=== PATIENT | male | born 1935 | race Caucasian/White ===

== ENCOUNTER 2025-04-11 18:26 | Inpatient (IN) | payer MEDICARE, OTHER, SELFPAY ==
[2025-04-11] VITALS (15 sets, daily range): BP systolic 129–159; BP diastolic 75–92; PULSE 67–98; RESP 11–27; TEMP 36.1–37.1; O2SAT 92–98; BMI 29.2
--- NOTE | 2025-04-11 18:41 | ECG_ITS ---
[facility] Test Date: 2025-04-11 Pat Name: Cisco Guthrie Department: Room: Gender: Male Servicer: : 1935 Requested By: Kathleen Flores Order Number: [id number] Anh MD: Inocencio Infante M.D. Measurements Intervals [place] Rate: 68 P: 24 NC: 196 QRS: -44 QRSD: 109 T: 63 QT: 394 QTc: 419 Interpretive Statements SINUS RHYTHM WITH OCCASIONAL VENTRICULAR PREMATURE COMPLEXES LEFT AXIS DEVIATION [QRS AXIS < -30] INCOMPLETE RIGHT BUNDLE BRANCH BLOCK [90+ ms QRS DURATION, TERMINAL R IN V1/V2, 40+ ms S IN I/aVL/V4/V5/V6] NONSPECIFIC T-WAVE ABNORMALITY INTERPRETATION BASED ON A DEFAULT AGE OF 40 YEARS No previous ECG available for comparison Electronically Signed On 04-12-2025 15:24:36 CDT by Inocencio Infante M.D. [email or web address]
--- NOTE | 2025-04-11 18:53 | ED_ITS ---
HPI - Chest Pain 2 General: Chief Complaint: Chest Pain Stated Complaint: chest pain Time Seen by Provider: 04/11/25 18:27 History of Present Illness: 89-year-old man with a history of yanez ry artery disease status post stents, diabetes and BPH who presents to the emergency room with chest pain. He says the pain started about an hour ago and felt just like when he had a heart attack in the past. He took a nitro and was about to take another and then the pain had gone away. He is been pain-free since. There was some concern for some EKG changes by EMS. No nausea or vomiting. No altered mental status. No focal motor deficits. No fevers. No chills. Related Data Allergies Allergy/AdvReac Type Severity Reaction Status Date / Time metformin Allergy ADR-Diarrhe Verified 04/11/25 18:42 a Review of Systems 2 Narrative: Constitutional symptoms: Negative except as documented in HPI. Skin symptoms: Negative except as documented in HPI. Eye symptoms: Negative except as documented in HPI. ENMT symptoms: Negative except as documented in HPI. Respiratory symptoms: Negative except as documented in HPI. Cardiovascular symptoms: Negative except as documented in HPI. Gastrointestinal symptoms: Negative except as documented in HPI. Genitourinary symptoms: Negative except as documented in HPI. Musculoskeletal symptoms: Negative except as documented in HPI. Neurologic symptoms: Negative except as documented in HPI. Psychiatric symptoms: Negative except as documented in HPI. Endocrine symptoms: Negative except as documented in HPI. Physical Exam 2 Narrative: EXAM NARRATIVE: General: Alert, no acute distress. Skin: Warm, dry. Head: Normocephalic, atraumatic. Neck: Supple, trachea midline. Eye: Extraocular movements are intact. Ears, nose, mouth and throat: mucosa moist. Cardiovascular: Regular, Normal peripheral perfusion. Respiratory: Lungs are clear to auscultation, respirations are non-labored, breath sounds are equal, Symmetrical chest wall expansion. Gastrointestinal: Soft, Nontender, Non distended Musculoskeletal: Normal ROM, no deformity. Neurological: Alert and oriented, No focal neurological deficit observed. Psychiatric: Cooperative, appropriate mood & affect. Course 2 Vital Signs: Vital signs: Vital Signs Temperature 98.7 F 04/11/25 18:32 Pulse Rate 67 04/11/25 18:32 Respiratory Rate 27 H 04/11/25 18:32 Blood Pressure 159/92 04/11/25 18:32 Pulse Oximetry 97 04/11/25 18:32 Oxygen Delivery Me thod Room Air 04/11/25 18:32 MDM - Chest Pain Medical Decision Making Medical decision making: Patient's reason for coming to the emergency room: Chest pain and coronary artery disease Social determinants: Patient is retired I reviewed the patient's medical record. Patient has no previous records from this institution. I reviewed the patient's current home meds Currently do not have a medication list. He does say he is on Plavix at home and Cardura. Alternate historians: None available Differential diagnosis for patient with chest pain includes but is not limited to and based on the above HPI, review of systems and physical exam: Pneumonia. unstable angina. angina. Acute coronary syndrome / MD. Pulmonary embolism. Costochondritis / musculoskeletal. Pleurisy. Pericarditis. Esophageal spasm. Pancreatis. Cholecystitis. Orders placed to evaluate differential diagnosis based on the above differential, HPI and physical exam EKG: Time 183. Rate 68. Normal sinus rhythm, nonspecific ST changes, PVCs, incomplete right bundle branch block, This was reviewed and interpreted by myself the ER physician. At 1834 Chest x-ray: No acute process. No infiltrate. No pneumothorax. Films were interpreted by myself the emergency room provider and pending final radiology review. Lab Review: Laboratory results were reviewed and interpreted by myself the emergency room physician. No leukocytosis. No anemia. No renal failure. First troponin is elevated at 24. proBNP is mildly elevated at 300 Clinical decision support: Heart score is 8. Recommends admission. Assessment of risk: - Level of risk - Was hospitalization considered? Reexamination: Patient remained stable. No increased work of breathing. No altered mental status. No focal motor deficits. Consultation: I spoke with Dr. Haskins who saw the patient upon arrival. He does not feel the patient is having a STEMI. The patient is no longer having any chest pain. He recommends typical cardiac workup. Consultation: I spoke with Dr. Patricio who is on-call for the hospitalist service who agrees to admission. Assessment and plan: Chest pain Coronary artery disease ?Patient has had Plavix today. Aspirin given here. Nitro at home. -I discussed the patient with the hospitalist on-call who is admitting the patient. - Discussed findings and plan with patient. Answered any questions. - All laboratory values were reviewed and interpreted personally by myself, the ER physician - All imaging was reviewed and interpreted personally by myself, the ER physician. - Evaluation and treatment of this problem were appropriate in the emergency setting Lab Data 04/11/25 18:45 04/11/25 18:45 Laboratory Results WBC 6.63 10^3/uL (3.29-11.43) 04/11/25 18:45 RBC 3.59 10^6/uL (3.85-5.65) L 04/11/25 18:45 Hgb 11.70 g/dL (11.27-16.99) 04/11/25 18:45 Hct 34.3 % (37-53) L 04/11/25 18:45 MCV 95.5 fl (82-101) 04/11/25 18:45 MCH 32.6 pg (27-33) 04/11/25 18:45 MCHC 34.1 g/dL (30-55) 04/11/25 18:45 RDW 13.4 % (12.1-15.1) 04/11/25 18:45 Plt Count 142 10^3/cmm (157-399) L 04/11/25 18:45 MPV 9.7 fL (7.4-10.4) 04/11/25 18:45 Neut % (Auto) 68.9 % 04/11/25 18:45 Lymph % (Auto) 21.1 % 04/11/25 18:45 Avery % (Auto) 6.8 % 04/11/25 18:45 Eos % (Auto) 2.4 % 04/11/25 18:45 Baso % (Auto) 0.3 % 04/11/25 18:45 Neut # (Auto) 4.57 10^3/uL (1.8-7.7) 04/11/25 18:45 Lymph # (Auto) 1.4 10^3/uL (0.8-4.8) 04/11/25 18:45 Avery # (Auto) 0.5 10^3/uL (0.2-0.9) 04/11/25 18:45 Eos # (Auto) 0.2 10^3/uL (0.0-0.8) 04/11/25 18:45 Baso # (Auto) 0.0 10^3/uL (0.0-0.1) 04/11/25 18:45 Nucleated RBC % (auto) 0 % 04/11/25 18:45 Nucleated RBCs # 0.0 /100WBC 04/11/25 18:45 Sodium 135 mmol/L (136-145) L 04/11/25 18:45 Potassium 3.9 mmol/L (3.5-5.1) 04/11/25 18:45 Chloride 99 mmol/L (98-107) 04/11/25 18:45 Carbon Dioxide 26 mmol/L (22-29) 04/11/25 18:45 Anion Gap 13.9 (5-19) 04/11/25 18:45 BUN 19 mg/dL (8-23) 04/11/25 18:45 Creatinine 0.8 mg/dL (0.7-1.2) 04/11/25 18:45 GFR Calculation Not Reportable 04/11/25 18:45 Glucose 189 mg/dL (65-115) H 04/11/25 18:45 Calculated Osmolality 287 mOsm/kg (285-295) 04/11/25 18:45 Calcium 8.4 mg/dL (8.5-10.5) L 04/11/25 18:45 Total Bilirubin 0.4 mg/dL (0.15-1.2) 04/11/25 18:45 AST 19 U/L (0-40) 04/11/25 18:45 ALT 15 U/L (0-41) 04/11/25 18:45 Alkaline Phosphatase 46 U/L (40-130) 04/11/25 18:45 Troponin T Baseline 24 ng/L (0-15) H 04/11/25 18:45 NT-Pro-B Natriuret Pep 300 pg/mL (0-450) 04/11/25 18:45 Total Protein 5.7 g/dL (6.6-8.7) L 04/11/25 18:45 Albumin 3.9 g/dL (3.5-5.2) 04/11/25 18:45 Globulin 1.8 g/dL (1.3-4.6) 04/11/25 18:45 XR interpretation done by ED provider, pending radiology final review Clincial Decision Support The following clinical decision support tools were used to aid in care of the patient HEART Score -> History: Highly Suspicious, EKG: Non-specific Changes, Age: 65 or more yrs, Risk Factors: >/=3 Risk Factors, Troponin: Baseline Trop 16-45 ng/L. Resulting HEART Score: 8. Discharge Plan Discharge Patient Disposition: Admitted As Inpatient Clinical Impression: Chest pain, Coronary artery disease Condition: Stable Coding Level of Care Code ED Production Aide for [facility] Heart Score HEART Score Components History: Highly Suspicious EKG: Non-specific Changes Age: 65 or more yrs Risk Factors: >/=3 Risk Factors Troponin: Baseline Trop 16-45 ng/L HEART Score RESULT HEART Score: 8
--- OUTSIDE RECORDS SUMMARY | 2025-04-11 18:58 | XMS_ITS | Encounter Summary ---
Author Organization [facility] Address [address] [place] [address] Care Team Providers Care Manager Life Sciences Name Role Phone Walter Juárez MD Primary Care Provider [phone] Encounter Details Date Type Department Care Team (Late st Contact Info) Description 06/27/2007 Outpatient Historical [facility] Medicine [place] [address] [place] [address] [phone] Oswaldo Hernandez MD [address] [place] [address] [phone] Social History Tobacco Use Types Packs/Day Years Used Date Smoking Tobacco: Never Assessed Sex and Gender Information Value Date Recorded Sex Assigned at Not on file Legal Sex Male 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
--- OUTSIDE RECORDS SUMMARY | 2025-04-11 18:58 | XMS_ITS | Encounter Summary ---
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 ABSORPTION OPERATOR Gender Identity Not on file Sexual Orientation Not on file documented as of this encounter Plan of Treatment Not on file documented as of this encounter Procedures Procedure Name Priority Date/Time Associated Diagnosis Comments NM MYOCARD PERF IMAG SPECT SINGL Routine 08/16/2007 8:29 AM ABSORPTION OPERATOR documented in this encounter Results * NM MYOCARD PERF IMAG SPECT SINGL (08/16/2007 8:29 AM ABSORPTION OPERATOR) 08/16/2007 8:29 AM ABSORPTION OPERATOR Narrative INTERFACE SYSTEM - 08/16/2007 8:29 AM ABSORPTION OPERATOR MYOVIEW PERFUSION SCAN: Date of Procedure: 11/21/2006. Date of Dictation: 11/21/2006. INDICATION: Chest pain. PROTOCOL: Tomographic slices of the left ventricle are obtained at rest after injection of 10.9 mCi of Tc-99m (technetium-99m) tetrofosmin and post stress after exercise to a peak heart rate of 129 beats per minute (86% of maximal predicted heart rate) on a Paul protocol and after re-injection of 32.5 mCi of Tc-99m (technetium-99m) tetrofosmin. FINDINGS: The left ventricular chamber dimensions may be somewhat increased post stress and at rest with no evident transient ischemic dilatation post stress. The poststress images appear to show reduced tracer uptake in the inferior wall from the level of the apex towards the base. Tracer uptake in the remaining segments appeared to be relatively uniform. The rest images show a relatively fixed perfusion abnormality in the inferior wall from the level of the apex towards the base. The gated left ventricular function study shows a preserved global left ventricular systolic function with a calculated left ventricular ejection fraction of 66%. No regional wall motion abnormalities are identified. IMPRESSION: 1. This is an abnormal myocardial perfusion study that shows a fixed perfusion abnormality in the inferior wall from the level of the apex towards the base. As there is no associated segmental wall motion abnormality in this region, this is most consistent with tissue attenuation. 2. Normal global left ventricular systolic function with a calculated left ventricular ejection fraction of 66%. No regional wall motion abnormalities are detected. phuc Dictated By: Unruly Wilcox M.D. Electronically Signed By: Unruly Wilcox M.D. Date Signed: 11/22/06 PHUC Procedure Note 05/10/2009 MYOVIEW PERFUSION SCAN: Date of Procedure: 11/21/2006. Date of Dictation: 11/21/2006. INDICATION: Chest pain. PROTOCOL: Tomographic slices of the left ventricle are obtained at rest afterinjection of 10.9 mCi of Tc-99m (technetium-99m) tetrofosmin and post stress after exercise to a peakheart rate of 129 beats per minute (86% of maximal predicted heart rate) on a Paul protocol and afterre-injection of 32.5 mCi of Tc-99m (technetium-99m) tetrofosmin. FINDINGS: The left ventricular chamber dimensions may be somewhat increased poststress and at rest with no evident transient ischemic dilatation post stress. The poststress images appearto show reduced tracer uptake in the inferior wall from the level of the apex towards the base. Traceruptake in the remaining segments appeared to be relatively uniform. The rest images show arelatively fixed perfusion abnormality in the inferior wall from the level of the apex towards thebase. The gated left ventricular function study shows a preserved global left ventricular systolicfunction with a calculated left ventricular ejection fraction of 66%. No regional wall motionabnormalities are identified. IMPRESSION: 1. This is an abnormal myocardial perfusion study that shows a fixedperfusion abnormality in the inferior wall from the level of the apex towards the base. As there is noassociated segmental wall motion abnormality in this region, this is most consistent with tissueattenuation. 2. Normal global left ventricular systolic function with a calculated leftventricular ejection fraction of 66%. No regional wall motion abnormalities are detected. phuc Dictated By: Unruly Wilcox M.D. Electronically Signed By: Unruly Wilcox M.D. Date Signed: 11/22/06 JAW us Historical Provider NM ORDERABLES Final Result Performing Organization Address City/State/[facility] Co de Phone Number INTERFACE SYSTEM Refer to clinic/hospital department documented in this encounter Visit Diagnoses Not on filedocumented in this encounter Care Teams Nut Culler Relationship Specialty Start Date End Date Walter Juárez MD [address] [place] [phone] PCP - General Family Practice 02/12/15 documented as of this encounter
--- OUTSIDE RECORDS SUMMARY | 2025-04-11 18:58 | XMS_ITS | Encounter Summary ---
Author Organization [facility] Address [address] [place] [address] Care Team Providers Care Stock Checkerer Name Role Phone Walter Juárez MD Primary Care Provider [phone] Encounter Details Date Type Department Care Team (Latest Contact Info) Description 06/15/2007 Outpatient Historical [facility] Cardiac Disaster Director [address] [place] [address] Honorio Spicer MD [address] [place], [place] [address]y [place] [address] [place] [address] Coronary Atherosclerosis of [place] Coronary Artery Social History Tobacco Use Types Packs/Day Years Used Date Smoking Tobacco: Never Assessed Sex and Gender Information Value Date Recorded Sex Assigned at Not on file Legal Sex Male 4:00 AM CLEAN OUT DRILLER HELPER Gender Identity Not on file Sexual Orientation Not on file documented as of this encounter Plan of Treatment Not on file documented as of this encounter Procedures Procedure Name Priority Date/Time Associated Diagnosis Comments PT AND APTT Routine 06/16/2007 9:51 AM CLEAN OUT DRILLER HELPER CBC WITHOUT DIFFERENTIAL Routine 06/16/2007 9:51 AM CLEAN OUT DRILLER HELPER BASIC METABOLIC PANEL Routine 06/16/2007 9:51 AM CLEAN OUT DRILLER HELPER documented in this encounter Results * (ABNORMAL) BASIC METABOLIC PANEL (06/16/2007 9:51 AM CLEAN OUT DRILLER HELPER) [facility] GLUCOSE 113(H) 70 - 110 mg/dL INTERFACE SYSTEM BUN 24(H) 9 - 20 mg/dL INTERFACE SYSTEM CREATININE 0.9 0.7 - 1.5 mg/dL INTERFACE SYSTEM SODIUM 144 136 - 145 mEq/L INTERFACE SYSTEM POTASSIUM 4.6 3.5 - 5.0 mEq/L INTERFACE SYSTEM CHLORIDE 108 95 - 110 mEq/L INTERFACE SYSTEM CO2 30 22 - 32 mmol/l INTERFACE SYSTEM CALCIUM 9.4 8.4 - 10.5 mg/dL INTERFACE SYSTEM ANION GAP 11 9 - 20 mEq/L INTERFACE SYSTEM OSMOLALITY, CALCULATED 301(H) 275 - 295 mOsm/Kg INTERFACE SYSTEM 06/16/2007 9:51 AM CLEAN OUT DRILLER HELPER Honorio Spicer MD CHEMISTRY ORDERABLES Edited Performing Organization Address [facility] Phone Number INTERFACE SYSTEM Refer to clinic/hospital department * PT AND APTT (06/16/2007 9:51 AM CLEAN OUT DRILLER HELPER) Pathologist [facility] PROTIME 15.3 12.8 - 15.8 Secs INTERFACE SYSTEM INR 1.1 INTERFACE SYSTEM PTT 25.8 21.6 - 35.6 Secs INTERFACE SYSTEM 06/16/2007 9:51 AM CLEAN OUT DRILLER HELPER Honorio Spicer MD HEMATOLOGY ORDERABLES Edited Performing Organization Address [facility] Phone Number INTERFACE SYSTEM Refer to clinic/hospital department * (ABNORMAL) CBC WITHOUT DIFFERENTIAL (06/16/2007 9:51 AM CLEAN OUT DRILLER HELPER) Pathologist [facility] WBC 3.3(L) 4.8 - 10.8 K/ul INTERFACE SYSTEM RBC 4.24(L) 4.60 - 6.20 Mil/ul INTERFACE SYSTEM HEMOGLOBIN 13.6(L) 14.0 - 18.0 g/dL INTERFACE SYSTEM HEMATOCRIT 40.2(L) 41.0 - 53.0 % INTERFACE SYSTEM MCV 94.8 84.0 - 103.0 Fl INTERFACE SYSTEM MCH 32.1 27.0 - 34.0 pg INTERFACE SYSTEM MCHC 33.8 30.0 - 35.0 g/dL INTERFACE SYSTEM RDW 13.8 11.0 - 14.5 % INTERFACE SYSTEM PLATELETS 137(L) 140 - 440 K/ul INTERFACE SYSTEM MPV 10.4 8.9 - 12.8 Fl INTERFACE SYSTEM NEUTROPHILS 52.0 42.2 - 75.2 % INTERFACE SYSTEM LYMPHOCYTES 31.4 24.0 - 44.0 % INTERFACE SYSTEM MONOCYTES 12.0(H) 2.0 - 10.0 % INTERFACE SYSTEM EOSINOPHILS 4.0 0.0 - 7.0 % INTERFACE SYSTEM BASOPHILS 0.6 0.0 - 1.0 % INTERFACE SYSTEM NEUTROPHIL ABSOLUTE 1.7(L) 2.0 - 8.0 K/ul INTERFACE SYSTEM LYMPHOCYTE ABSOLUTE 1.0(L) 1.2 - 4.0 K/ul INTERFACE SYSTEM MONOCYTE ABSOLUTE 0.4 0.1 - 0.6 K/ul INTERFACE SYSTEM EOSINOPHIL ABSOLUTE 0.1 0.0 - 0.7 K/ul INTERFACE SYSTEM BASOPHILS ABSOLUTE 0.0 0.0 - 0.2 K/ul INTERFACE SYSTEM 06/16/2007 9:51 AM CLEAN OUT DRILLER HELPER us Honorio Spicer MD HEMATOLOGY ORDERABLES Edited INTERFACE SYSTEM Refer to clinic/hospital department documented in this encounter Visit Diagnoses Diagnosis Coronary atherosclerosis of havas[place]ai coronary artery documented in this encounter Care Teams Stock Checkerer Relationship Specialty Start Date End Date Walter Juárez MD [address], [place] [address] PCP - General Family Practice 02/12/15 documented as of this encounter
--- OUTSIDE RECORDS SUMMARY | 2025-04-11 18:59 | XMS_ITS | Encounter Summary ---
Author Organization [facility] Address [address] [place] [address] Care Team Providers Care Copra Processor Name Role Phone Walter Juárez MD Primary Care Provider Encounter Details Date Type Department Care Team (Latest Contact Info) Description 12/06/[address] 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
--- OUTSIDE RECORDS SUMMARY | 2025-04-11 18:59 | XMS_ITS | Encounter Summary ---
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) Social History Tobacco Use Types Packs/Day Years Used Date Smoking Tobacco: Never Assessed Sex and Gender Information Value Date Recorded Sex Assigned at Not on file Legal Sex Male 4:00 AM 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
--- OUTSIDE RECORDS SUMMARY | 2025-04-11 18:59 | XMS_ITS | Encounter Summary ---
Author Organization [facility] Address [address] [place] [address] Care Team Providers Care Prestidigitator Name Role Phone Walter Juárez MD Primary Care Provider [phone] Encounter Details Date Type Department Care Team (Latest Contact Info) Description 05/28/2005 Outpatient Historical [facility] [address] [place] [address] [phone] Harlan Anton, SWING TENDER [address] [place], [place] [address] DIABETES MELLITUS TYPE II-UNCOMPL (CMS/[facility]) (Primary Dx); DIARRHEA NOS; OSTEOARTHROS NOS-OTHER SITE; CELLULITIS NOS Social History Tobacco Use Types Packs/Day Years Used Date Smoking Tobacco: Never Assessed Sex and Gender Information Value Date Recorded Sex Assigned at Not on file 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 Sex Male 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 Gender Identity Not on file Sexual Orientation Not on file documented as of this encounter Plan of Treatment Not on file documented as of this encounter Visit Diagnoses Diagnosis Type II or unspecified type diabetes mellitus without mention of complication, not stated as uncontrolled- Primary Diarrhea Osteoarthrosis, unspecified whether generalized or localized, other specified sites Cellulitis and abscess of unspecified site documented in this encounter Care Teams Prestidigitator Relationship Specialty Start Date End Date Walter Juárez MD [address] [phone] PCP - General Family Practice 02/12/15 documented as of this encounter
--- OUTSIDE RECORDS SUMMARY | 2025-04-11 18:59 | XMS_ITS | Encounter Summary ---
Author Organization [facility] Address [address] [place] [address] Care Team Providers Care Director Of Technology Name Role Phone Walter Juárez MD Primary Care Provider [phone] Encounter Details Date Type Department Care Team (Latest Contact Info) Description 08/31/2005 Outpatient Historical [facility] [place] [address] [place] [phone] Va Nguyen MD [address] [place] [phone] DM w/o Complication Type II (CMS/HCC) (Primary Dx) Social History Tobacco Use Types Packs/Day Years Used Date Smoking Tobacco: Never Assessed Sex and Gender Information Value Date Recorded Sex Assigned at Not on file 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
--- OUTSIDE RECORDS SUMMARY | 2025-04-11 18:59 | XMS_ITS | Clinical Summary ---
Author Organization [facility] Address [address] [place] [address] Phone Care Team Providers Care Insurance Risk Analyst Name Role Phone Walter Juárez MD Primary Care Provider [phone] Allergies Active Allergy Reactions Criticality Noted Date Comments Hymenoptera Allergenic Extract Anaphylaxis High 01/19 Metformin Diarrhea Low 12/09/2017 Medications aspirin (SHARMILA) 81 mg Oral Tab Take 81 mg by mouth daily. Active omega-3 fatty wuohi-yqc-fla (MEGARED QPRJM-FIFRG-6) 300 mg Capsule Take 1 Cap by mouth daily. Active IRON/VITAMIN B COMPLEX (GERITOL ORAL) Take by mouth daily. 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 2 Each 1 05/05/20 20 Active blood sugar diagnostic (Precision Xtra Test) Strip USE 1 STRIP TWICE A DAY 200 Each 3 07/28/19 21 Active glimepiride (AMARYL) 2 mg tabletIndications: Type 2 diabetes mellitus with hyperglycemia, without long-term current use of insulin TAKE 1 TABLET DAILY WITH BREAKFAST FOR DIABETES AND BLOOD SUGAR 90 Tablet 3 11/05/19 21 Active atorvastatin (LIPITOR) 40 mg tabletIndications: Hyperlipidemia, unspecified hyperlipidemia type Take 1 Tablet (40 mg) by mouth daily with supper. 90 Tablet 3 11/05/19 21 Active nitroglycerin (Nitrostat) 0.4 mg Tablet, Sublingual Place 1 Tablet (0.4 mg) under tongue every 5 minutes as needed for Chest Pain. 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 8 Leukopenia 10/28/2016 Thrombocytopenia 10/28/2016 Spinal stenosis of lumbar region 01/15/2016 Overview (01/15/2016): mod/severe L2-3, L3-4, L4-5 DDD (degenerative disc disease), lumbar 01/15/20 16 Neuroforaminal stenosis of lumbar spine 01/15/20 16 Lumbar facet arthropathy 01/15/2016 Levoscoliosis 01/15/2016 Overview (01/15/2016): lumbar, centered L2-3 Discogenic low back pain 01/15/2016 Chest pain 04/02/2015 Abnormal stress test 03/29/2015 S/P drug eluting coronary stent placement 2014 Overview (03/29/2015): S/p PUNEET RCA Ingrown right big toenail 03/12/2013 Elevated prostate specific antigen (PSA) 013 Corns and callosities 09/11/2012 Family history of malignant neoplasm of prostate 01/07/2012 Exostosis 12/25/2011 Pancytopenia 01/30/2010 Bradycardia 10/17/2009 Type 2 diabetes mellitus with hyperglycemia 01/19 Hyperlipidemia 02/14/2009 CAD (coronary artery disease) 02/14/2009 Overview (11/04/2010): 12/24 - Coronary angiography revealed:Hemodynamic Data: The left ventricular systolic pressure was 136 mmHg. LVEDP 16 mmHg. Aortic pressure was 136/72 mmHg. RCA: This is a dominant vessel that gives off a small PDA and a tiny posterolateral branch. The proximal half of the RCA is ectatic and appears twice the diameter of the distal half of the RCA. The distal half of the RCA appears to be a fairly small diameter vessel with mild diffuse plaque. There is 10-20% luminal narrowing along the proximal half of the ectatic RCA. Left coronary system: The LM is free of obstructive plaque. There is a small intermediate ramus branch, which is free of obstructive plaque. The LCx gives off a medium-sized 1st marginal, a medium-sized 2nd marginal that extends all the way to the apex, and a medium-sized bifurcating posterolateral branch. There is diffuse 20% plaque throughout the mid LCx. There is a short 95% stenosis in the mid portion of the 2nd marginal branch. There is a 20% stenosis at the takeoff of the posterolateral branch. There is a small intermediate ramus branch that appears free of obstructive plaque. The LAD gives off a fairly large, very proximal diagonal branch and 2 small mid diagonal branches. There is 20% plaque in the proximal LAD. There is a short 25% stenosis just beyond the 1st diagonal followed by a short 70% stenosis in the mid LAD. The distal LAD appears free of obstructive plaque. Left Ventriculogram: LVEF 60%. There is no mitral insufficiency. Dr Spicer proceeded with deployment of a 2.5- x 8-mm, drug-eluting RX Cypher stent to the mid LAD 05/2007 - Coronary angiography revealed: A. HEMODYNAMIC DATA: Left ventricular systolic pressure was 132 millimeters of Mercury. LVEDP 16 millimeters of Mercury. Aortic pressure 132/64 mmHg. B. RCA: Is a dominant vessel giving off a small PDA and a tiny posterolateral branch. The proximal half of the RCA down to the right ventricular branch is ectatic and nearly twice the diameter of the distal half of the RCA. There is calcification along the proximal to mid RCA with mild luminal irregularity. There is a 30 percent stenosis in the mid RCA just beyond the takeoff of the right ventricular branch. There is very minor plaque along the distal half of the RCA. C. LEFT CORONARY SYSTEM: The LM is free of obstructive plaque. The LCx gives off a medium sized first marginal branch, a small diameter second marginal which extends all the way to the apex and a medium sized bifurcating posterolateral branch. There is mild, diffuse ectasia throughout the proximal to mid circumflex with diffuse calcification along the mid circumflex. There is minor luminal irregularity throughout the main body of the circumflex. The previous PTCA site at the mid portion of the second marginal has no more than 20 percent luminal narrowing. There is a small intermediate ramus branch which appears free of obstructive plaque. The LAD gives rise to a medium sized proximal septal branch and two small diagonal branches. There is 20 percent narrowing in the LAD just beyond the takeoff of the septal branch and a 25 percent stenosis just distal to the first diagonal. The stented area in the mid LAD between the two diagonal branches has a negative residual narrowing. The distal LAD is small in diameter but free of obstructive plaque. D. LEFT VENTRICULOGRAM: Left ventricular systolic function is normal. LVEF 60 %. There is no mitral insufficiency. Resolved Problems Problem Noted Date Diagnosed Date Resolved Date Ligamentum flavum hypertrophy 01/15/2016 05/05/2020 Angina, class III 03/29/2015 09/14/2019 Leukopenia 10/20/2009 04/14/2012 Thrombocytopenia, unspecified 10/20/2009 04/14/2012 Immunizations Immunization Administration Dates Next Due (PNEUMOVAX 23)(50 YRS UP) PN EUMOCOCCAL POLYSACCHARIDE (PPV23) 0.5 ML, IM 05/05/2020,06/20/1995 INFLUENZA VACCINE HIGH DOSE QUADRIVALENT 65 YR UP PF IM 04/09/2020 INFLUENZA VACCINE QUADRIVALE NT 3 YR UP PF IM 04/25/2019 Influenza Seasonal Unspecifi ed Formulation IM 05/04/2017,03/25/2016,03/17/2010,05/23,04/20/2005 Influenza Vaccine High Dose 65+ Yrs IM 8,04/02/2015 Influenza Vaccine Quad Split 3+ Yrs Im 4 Influenza Vaccine Split 3+ Yrs IM 2012,04/04/2012,03/24/2011,05/26,06/18/2008 PREVNAR (PCV13) pneumococcal 13-valent conjugate Vaccine 03/24/2016 Pneumococcal conjugate, unsp ecified formulation 03/17/2010 Zoster Vaccine Live SQ 03/24/2016 Family History Medical History Relation Name Comments Diabetes Brother 1 Ulcers Brother 2 Ulcers Father Heart Disease Mother Diabetes Sister Relation Name Status Comments Brother 1 Brother 2 Father Mother Sister Social History Tobacco Use Types Packs/Day Years Used Date Smoking Tobacco: Former Cigarettes Q uit: 06/20/1971 Smokeless Tobacco: Never Tobacco Cessation:Counseling Given: No Alcohol Use Standard Drinks/Week Comments No 0 (1 standard drink = 0.6 oz pur e alcohol) Sex and Gender Information Value Date Recorded Sex Assigned at Not on file 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 Gender Identity Not on file Sexual Orientation Not on file Last Filed Vital Signs Vital Sign Reading Time Taken Comments Blood Pressure 124/78 11/19/2020 1:42 PM CDT Pulse 69 11/19/2020 1:42 PM CDT Temperature 36.7 C (98 F) 11/04/2020 11:10 AM CDT Respiratory Rate 16 11/04/2020 11:10 AM CDT Oxygen Saturation 96% 11/04/2020 11:10 AM CDT Room Air Inhaled Oxygen Concentration - - Weight 74.8 kg (165 lb) 11/19/2020 1:42 PM CDT Height 160 cm (5' 3 ) 11/19/2020 1:42 PM CDT Body Mass Index 29.23 11/19/2020 1:42 PM CDT Plan of Treatment Health Maintenance Due Date Last Done Comments DTAP/TDAP/TD VACCINES (1 - Tdap) 1955 RSV VACCINE (60+ or ) (1 - 1-dose 75+ series) 2011 ZOSTER VACCINE (2 of 3) 05/19/2016 03/24/2016 Traditional Medicare (ACO) A nnual Wellness Visit 05/06/2021 05/05/2020, 06/14/2018, 01/13/2017, Additional history exists DIABETES HBA1C Q 6 MONTHS 05/07/20212020, 01/21/2020, 09/14/2019, Additional history exists DIABETES ANNUAL FOOT EXAM 11/04/2021 11/04/2020, DIABETES MICROALBUMIN ANNUAL SCREEN 11/04/2021 11/04/2020, 09/14/2019, 04/06/2018, Additional history exists LDL CHOLESTEROL ANNUAL 11/04/2021 1, 04/06/2018, 06/02/2017, Additional history exists DIABETES ANNUAL RETINAL EXAM 11/11/2023, 11/18/2021, 01/21/2020, Additional history exists INFLUENZA VACCINE (#1) 2025 0, 04/25/2019, 05/23/2018, Additional history exists PNEUMOCOCCAL VACCINE 50+ YEARS Completed 1 07/05/2019, 03/24/2016, 03/17/2010, Additional history exists Medical Devices Implanted Type Area Magnetic Doctor Device Identifier Shelf Expiration Date Model / Serial / Lot Promus Premier 3x12 Implanted:2014 (Quantity not on file) Stent / / [id number] Procedures Procedure Name Priority Date/Time Associated Diagnosis Comments MICROALBUMIN/CREATI NINE RATIO, RANDOM UR Routine 11/04/2020 11:43 AM CDT Type 2 diabetes mellitus with hyperglycemia, without long-term current use of insulin ([facility]) LIPID PANEL Routine 11/04/2020 11:43 AM CDT Hyperlipidemia, unspecified hyperlipidemia type HEMOGLOBIN A1C Routine 11/04/2020 11:43 AM CDT Type 2 diabetes mellitus with hyperglycemia, without long-term current use of insulin ([facility]) DIABETES EYE EXAM Routine 11/02/2019 from Last 3 Months or Most Recently Relevant to Health Maintenance Results * MICROALBUMIN/CREATININE RATIO, RANDOM UR (11/04/2020 11:43 AM CDT) MICROALBUMIN, URINE <1.2 No Reference Range mg/dL 11/04/2020 8:53 PM CDT [facility] CREATININE, URINE 152.9 40.0 - 278.0 mg/dL 11/04/2020 8:53 PM CDT [facility] Comment:Reference Range vari es with fluid intake and diet. MICROALBUMIN/C REAT RATIO, UR <7.8 <17.0 mg/g 11/04/2020 8:53 PM CDT [facility] Urine URINE SPECIMEN OBTAINED BY CLEAN CATCH PROCEDURE / Unknown Collection / Unknown 11/04/2020 11:43 AM CDT 11/04/2020 8:01 PM CDT [facility] - 11/04/2020 8:53 PM CDT Condition Microalbumin/Creat ratio Normal Males <17 Normal Females <25 Microalbuminuria Males 17-299 Microalbuminuria Females 25-299 Overt proteinuria >=300 us Padmini Carr MALT LIQUORS SALES SUPERVISOR URINE ORDERABLES Final Result [facility] CLIA# [id number] [address] [place] [address] * (ABNORMAL) HEMOGLOBIN A1C (11/04/2020 11:43 AM CDT) HEMOGLOBIN A1C 6.4(H) See Comment % 11/04/2020 8:35 PM CDT [facility] EST. AVG GLUCOSE, A1C 137 mg/dL 11/04/2020 8:35 PM CDT [facility] Blood Venipuncture / Unknown 11/04/2020 11:43 AM CDT 11/04/2020 8:04 PM CDT Narrative [facility] - 11/04/2020 8:35 PM CDT HGB A1C INTERPRETATION NORMAL: <5.7% PRE-DIABETES: 5.7 - 6.4% DIABETES: 6.5% OR GREATER Falsely low A1C measurements can occur when: 1. Anemia and/or hemolytic anemia is present. 2. Hemoglobin variants present. 3. Renal failure. 4. Transfusion of blood product in the last 120 days. We recommend ordering a fructosamine test([id number]) to more accurately assess glycemic status if any of the above conditions are present. us Padmini Carr MALT LIQUORS SALES SUPERVISOR CHEMISTRY ORDERABLES Final Re sult [facility] CLIA# [id number] [address] [place] [address] * (ABNORMAL) LIPID PANEL (11/04/2020 11:43 AM CDT) CHOLESTEROL 199 <200 mg/dL 11/04/2020 9:11 PM CDT [facility] TRIGLYCERIDE 150(H) <150 mg/dL 11/04/2020 9:11 PM CDT [facility] HDL 50 40 - 59 mg/dL 11/04/2020 9:11 PM CDT [facility] LDL CALCULATED 119(H) <100 mg/dL 11/04/2020 9:11 PM CDT [facility] NON-HDL CHOLESTEROL 149(H) <130 mg/dL 11/04/2020 9:11 PM T [facility] Blood Venipuncture / Unknown 11/04/2020 11:43 AM CDT 11/04/2020 8:04 PM CDT Narrative [facility] - 11/04/2020 9:11 PM CDT TOTAL CHOLESTEROL mg/dL Desirable <200 Borderline high 200-239 High >=240 TRIGLYCERIDES mg/dL Normal <150 Borderline high 150-199 High 200-499 Very high >=500 HDL CHOLESTEROL mg/dL Low <40 Normal 40-59 Desirable >=60 NON HDL CHOLESTEROL mg/dL Optimal <130 Near Optimal 130-159 Borderline High 160-189 Very High >=190 CALCULATED LDL mg/dL LDL <70, OPTIMAL if have Atherosclerotic cardiovascular disease (ASCVD) or intermediate or higher (>7.5%) 10 year risk of ASCVD including most adults with diabetes. LDL <100, Optimal in adult patients with low (<7.5%) 10 year ASCVD risk LDL 100-160, Suboptimal LDL >160, High LDL >190, Very high ATPIII Guidelines Reference Ranges for Lipid Panels (NCEP/AMA) . Padmini Carr MALT LIQUORS SALES SUPERVISOR CHEMISTRY ORDERABLES Final Re sult [facility]# [id number] [place] [address] * DIABETES EYE EXAM (11/02/2019) us Abstract Spg Provider HEALTH MAINTENANCE Final R esult from Last 3 Months or Most Recently Relevant to Health Maintenance Insurance MEDICARE PART A AND B [place] Advance Directives For more information, please contact: [phone] * Full Code (Latest Code Status on File) Date Activated Date Inactivated Comments 04/02/2015 10:41 PM 04/03/2015 3:37 PM * Full Code Date Activated Date Inactivated Comments 03/28/2015 11:39 AM 03/29/2015 12:58 PM Care Teams Insurance Risk Analyst Relationship Specialty Start Date End Date Walter Juárez MD [address] [place] [phone] PCP - General Family Practice 8/26/15
--- OUTSIDE RECORDS SUMMARY | 2025-04-11 18:59 | XMS_ITS | Encounter Summary ---
Author Organization [facility] Address [address] [place] [address] Care Team Providers Care Engineering Technical Specialist Name Role Phone Tomás Juárez DO Primary Care Provider [phone] Reason for Visit * Reason Comments Provider Call Encounter Details Date Type Department Care Team (Late st Contact Info) Description 01/03/2025 Telephone [facility] [place] [address] [phone] Tomás Juárez DO [address] [phone] Provider Call Social History Tobacco Use Types Packs/Day Years Used Date Smoking Tobacco: Former Cigarettes 1 17.6 0 10/27/1953 - 06/20/1971 Passive Smoke Exposure: Past Smokeless Tobacco: Never Alcohol Use Standard Drinks/Week Comments No 0 (1 standard drink = 0.6 oz pur e alcohol) Financial Resource Strain Answer Date R ecorded How hard is it for you to pa y for the very basics like food, housing, medical care, and heating? Not hard at all 04/28/2022 Food Insecurity Answer Date Recorded In the past 12 months, have you worried that your food would run out before you had money to buy more? Never true 04/28/2022 In the past 12 months, did y ou run out of food and didn't have money to buy more? Never true 04/28/2022 Transportation Needs Answer Date Record ed In the past 12 months, has l ack of transportation kept you from medical appointments or from getting medications? No 04/28/2022 Lack of Transportation (Non-Medical) Not on file 04/28/2022 Feeling Safe Answer Date Recorded Are you in a relationship wi th someone who hurts you emotionally and/or physically? 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 Discussed spoke with home health nurse yesterday about patient lungs. Dr. Juárez is ordering a chest xray. She reports no weight gain and states he has actually lose weight but couldn't provide number at this time. She was requesting UA as well but patient alreadybrought this in yesterday. She will bring him in today for xray. Order placed. . Voiced understanding. Delores REDMAN * Telephone Encounter - Tomás Juárez DO - 01/03/2025 6:11 PM CDT Agree with chest x-ray. Any significant weight gain? Last weight in office 152 pounds on 12/10/2024. * Telephone Encounter - Delores Castellanos LPN - 01/03/2025 3:42 PM CDT 01/03/2025 3:42 PM Returned call and spoke with ROSALBA. Discussed med review preformed. Will send medication summary to [facility]. She states patient has a chronic cough x 1 month. She states she hears rales throughout lungs. Requesting to know if provider would like a chest xray?.NO other symptoms voiced. Delores REDMAN * Telephone Encounter - Nayeli Kee LPN - 01/03/2025 12:51 PM CDT 01/03/2025 12:51 PM Invalid phone number. Nayeli REDMAN * Telephone Encounter - Gerson Montano - 01/03/2025 12:45 PM CDT Copied from [facility] #[id number]. Topic: [id number] Call >> Jan 03, 2025 12:44 PM Gerson Solares wrote: Caller is requesting to speak with Clinical Care Team. Caller Name: Rosalba- Tatum Callback Number: [phone] Clinician Type: Other healthcare professional not listed above Call Notes: needing to speak with a nurse to review medications and let them know about breath sounds and a cough that has been going on for a month. Is this addressing an immediate patient care need? No documented in this encounter Plan of Treatment Upcoming Encounters Date Type Department Care Team (Late st Contact Info) Description 05/01/2025 1:40 PM WOOD BARREL RECONDITIONER Office Visit [facility] [address] [place] [address] Ralph Rodriguez PA [address] [place] [address] 05/14/2025 10:20 AM WOOD BARREL RECONDITIONER Office Visit [address] [place] [phone] Leatha Gonzalez, [facility] [address] [place] [phone] 01/21/2026 1:40 PM CDT Office Visit [facility] [address] [facility] [address] [place] [address] Tory Vargas, [facility] [address] [facility] [address] [place] [address] 03/13/2026 9:30 AM CDT Office Visit [facility] [place] [address] [place] [address] Walter Orlando [place] [address] [place] [address] documented as of this encounter Results * XR CHEST PA AND LATERAL 2 VW (01/04/2025 10:52 AM CDT) Anatomical Region Laterality Modality Chest Computed Radiogr aphy 01/04/2025 10:5 2 AM CDT Impressions 01/05/2025 1:54 PM CDT IMPRESSION: See below. Exam: XR CHEST PA AND LATERAL 2 VW Date/Time of Exam: 01/04/2025 10:52 AM Reason For Exam: See Diagnosis. Diagnosis: Chest rales. Prior: 12/31/2023 Findings: The cardiomediastinal silhouette is normal.Ectatic aorta. Bilateral calcified granulomas. No acute focal airspace disease, pleural effusion, or pneumothorax. No acute osseous abnormality.Thoracic spondylosis. IMPRESSION: No acute cardiopulmonary disease. Narrative Procedure Note Sukh Hallman DO - 01/05/2025 IMPRESSION: See below. Exam: XR CHEST PA AND LATERAL 2 VW Date/Time of Exam: 01/04/2025 10:52 AM Reason For Exam: See Diagnosis. Diagnosis: Chest rales. Prior: 12/31/2023 Findings: The cardiomediastinal silhouette is normal.Ectatic aorta. Bilateral calcified granulomas. No acute focal airspace disease, pleural effusion, or pneumothorax. No acute osseous abnormality.Thoracic spondylosis. IMPRESSION: No acute cardiopulmonary disease. Tomás Juárez DO DIAGNOSTIC IMAGING ORDERABLES Final Result documented in this encounter Visit Diagnoses Diagnosis Chest rales- Primary Abnormal chest sounds Chest rales Abnormal chest sounds documented in this encounter Care Teams Engineering Technical Specialist Relationship Specialty Start Date End Date Tomás Juárez DO [address] [address] PCP - General Family Practice 06/05/21 documented as of this encounter
--- OUTSIDE RECORDS SUMMARY | 2025-04-11 18:59 | XMS_ITS | Encounter Summary ---
Author Organization [facility] Address [address] [place] [address] Care Team Providers Care Aircraft Engine Installer Name Role Phone Tomás Juárez Primary Care Provider [phone] Reason for Visit * Reason Onset Date Comments ER Follow Up 09/12/2023 Encounter Details Date Type Department Care Team (Late st Contact Info) Description 09/12/2023 Telephone [facility] [address] [facility] [address] [place] [phone] Carlos Gonzalez MD [address] [facility] [address] [place] [address] ER Follow Up Social History Tobacco Use Types Packs/Day Years Used Date Smoking Tobacco: Former Cigarettes Q uit: 06/20/1971 Passive Smoke Exposure: Past Smokeless Tobacco: [...] who hurts you emotionally and/or physically? 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 [facility] Organic Extractions Technician: Sue Forde documented in this encounter Plan of Treatment Upcoming Encounters Date Type Department Care Team (Late st Contact Info) Description 05/01/2025 1:40 PM FARE REGISTER REPAIRER Office Visit [facility] Pain Management [address] [place] [address] Ralph Rodriguez PA [address] [place] [address] 05/14/2025 10:20 AM FARE REGISTER REPAIRER Office Visit [facility] [place] [address] [place] [phone] Leatha Gonzalez, IS TECHNICIAN [address] [place] [phone] 01/21/2026 1:40 PM CDT Office Visit [facility] [address] [facility] [address] [place] [address] Tory Vargas, IS TECHNICIAN [address] [facility] [address] [place] [address] 03/13/2026 9:30 AM CDT Office Visit [facility] Urology [place] [address] [facility] [address] [place] [address] Walter Orlando NP [address] [place] [address] documented as of this encounter Visit Diagnoses Not on filedocumented in this encounter Care Teams Aircraft Engine Installer Relationship Specialty Start Date End Date Tomás Juárez DO [address] [place] [address] PCP - General Family Practice 06/05/21 documented as of this encounter
--- OUTSIDE RECORDS SUMMARY | 2025-04-11 18:59 | XMS_ITS | Encounter Summary ---
Author Organization [facility] Address [address] [place] [address] Care Team Providers Care Aircraft Engine Technician Name Role Phone Walter Juárez MD Primary Care Provider [phone] Encounter Details Date Type Department Care Team (Latest Contact Info) Description 05/09/2006 Outpatient Historical [facility] [place] [address] [place] [phone] Harlan Anton, MANAGER TRADE [address] [place] [address] Osteoarth NOS-Other Site (Primary Dx); Allergic Rhinitis, Cause Unspecified Social History Tobacco Use Types Packs/Day Years Used Date Smoking Tobacco: Never Assessed Sex and Gender Information Value Date Recorded Sex Assigned at Not on file Legal Sex Male 4:00 AM PREDATORY ANIMAL TRAPPER Gender Identity Not on file Sexual Orientation Not on file documented as of this encounter Plan of Treatment Not on file documented as of this encounter Visit Diagnoses Diagnosis Osteoarthrosis, unspecified whether generalized or localized, other specified sites- Primary Allergic rhinitis, cause unspecified documented in this encounter Care Teams Aircraft Engine Technician Relationship Specialty Start Date End Date Walter Juárez MD [address] [phone] PCP - General Family Practice 02/12/15 documented as of this encounter
--- OUTSIDE RECORDS SUMMARY | 2025-04-11 18:59 | XMS_ITS | Encounter Summary ---
Author Organization [facility] Address [address] [place] [address] Care Team Providers Care Flask Handler Name Role Phone Walter Juárez MD Primary Care Provider [phone] Encounter Details Date Type Department Care Team (Latest Contact Info) Description 06/28/2005 Outpatient Historical [facility] [place] [address] [place] [phone] Harlan Anton, TICKETING CLERK [address] [place], [place] [address] DIABETES MELLITUS TYPE II-UNCOMPL (CMS/HCC) (Primary Dx); ANEMIA NOS; AFTERCARE INTERMEDIATE USE MEDICATN Social History Tobacco Use Types Packs/Day Years Used Date Smoking Tobacco: Never Assessed Sex and Gender Information Value Date Recorded Sex Assigned at Not on file Legal Sex Male 4:00 AM INSTRUCTOR PRIVATE Gender Identity Not on file Sexual Orientation Not on file documented as of this encounter Plan of Treatment Not on file documented as of this encounter Visit Diagnoses Diagnosis Type II or unspecified type diabetes mellitus without mention of complication, not stated as uncontrolled- Primary Anemia, unspecified Encounter for long-term (current) use of other medications documented in this encounter Care Teams Flask Handler Relationship Specialty Start Date End Date Walter Juárez MD [address] [phone] PCP - General Family Practice 02/12/15 documented as of this encounter
--- OUTSIDE RECORDS SUMMARY | 2025-04-11 18:59 | XMS_ITS | Encounter Summary ---
Author Organization [facility] Address [address] [place] [address] Care Team Providers Care Supervisor Coating Name Role Phone Tomás Juárez DO Primary Care Provider [phone] Reason for Visit * Reason Comments Clinical Consult Before Scheduling Encounter Details Date Type Department Care Team (Late st Contact Info) Description 10/03/2024 Telephone [facility] Medicine [place] [address] [phone] Toáms Juárez DO [address] [address] Clinical Consult Before Scheduling Social History Tobacco Use Types Packs/Day Years [...] who hurts you emotionally and/or physically? No 10/04/2024 Food Insecurity Answer Date Recorded Social/Environmental Concerns No concerns Transportation Needs Answer Date Record ed Social/Environmental Concerns No concerns Utility Needs Answer Date Recorded Social/Environmental Concerns No concerns Sex and Gender Information Value Date Recorded Sex Assigned at Not on file Legal Sex Male 4:07 PM AUDIO DIRECTOR Gender Identity Not on file Sexual Orientation Not on file documented as of this encounter Miscellaneous Notes * Telephone Encounter - Padmini Carr FNP - 10/03/2024 9:28 AM CDT Yes, unable to void is a ER visit since that is not optional. * Telephone Encounter - Delores Castellanos LPN - 10/03/2024 8:44 AM CDT 10/03/2024 8:44 AM Incoming call from . Patient having have extreme pain in his penis. No pain medication will help this. Urine dark yesterday. Is clear today. Patient is just dribbling and feels like he can't pee.ER advised due to extreme pain. Delores REDMAN Adult patient complains of Pain: Patient c/o pain in penis Symptoms started 10/03/24 Denies an injury or activity outside the norm precipitating the pain. Denies swelling to affected joint. Denies redness or heat to affected joint. Pain is rated 10/10 Patient has not had this pain before. Home therapies tried: Taking [place] every four hours and tramadol with no relief INFORMATIONAL MESSAGE ONLY. Not able to schedule appointment within the recommended timeframe. Patient informed of additional [facility] Resources and expresses intent to utilize [facility] ED in the area. * Telephone Encounter - Shanae Ricks - 10/03/2024 8:43 AM CDT Copied from [facility][id number]. Topic: Symptomatic Care >> Oct 03, 2024 8:40 AM Shanae Aguilar wrote: Has this patient seen any provider (current or former) at the requested clinic in the past? Yes, Select the appropriate age range and symptom Patient has symptoms and is seeking care. Caller Name: Lilian Harris on [facility] Callback Number: Telephone Information: Call Notes: States he is having pain and rates it a 10 Age Range/Symptom: Adult 18+ - Transferred to N line and answered call. documented in this encounter Plan of Treatment Upcoming Encounters Date Type Department Care Team (Late st Contact Info) Description 05/01/2025 1:40 PM AUDIO DIRECTOR Office Visit [facility] Pain Management [address] [place] [address] Ralph Rodriguez PA [address] [place] [phone] 05/14/2025 10:20 AM AUDIO DIRECTOR Office Visit [facility] Family Medicine [place] [address] [place] [phone] Leatha Gonzalez, MORENO [address] [place] [phone] 01/21/2026 1:40 PM CDT Office Visit [facility] [address] [facility] [address] [place] [address] Tory Vargas, TOOL PROFILING MACHINE SET UP OPERATOR [address] [facility] [address] [place] [address] 03/13/2026 9:30 AM CDT Office Visit [facility] Urology [place] [address] [place] [address] Walter Orlando NP [address] [facility] [address] [place] [address] documented as of this encounter Visit Diagnoses Not on filedocumented in this encounter Care Teams Supervisor Coating Relationship Specialty Start Date End Date Tomás Juárez DO [address] [place] [address] PCP - General Family Practice 06/05/21 documented as of this encounter
--- OUTSIDE RECORDS SUMMARY | 2025-04-11 19:00 | XMS_ITS | Encounter Summary ---
Author Organization [facility] Address [address] [place] [address] Care Team Providers Care Vehicle Detailer Name Role Phone Walter Juárez MD Primary Care Provider [phone] Encounter Details Date Type Department Care Team (Late st Contact Info) Description 05/23/2007 Outpatient Historical [facility] Family Medicine [address] [address] Social History Tobacco Use Types Packs/Day Years Used Date Smoking Tobacco: Never Assessed Sex and Gender Information Value Date Recorded Sex Assigned at Not on file Legal Sex Male 4:00 AM OPEN WINDER Gender Identity Not on file Sexual Orientation Not on file documented as of this encounter Plan of Treatment Not on file documented as of this encounter Visit Diagnoses Not on filedocumented in this encounter Care Teams Vehicle Detailer Relationship Specialty Start Date End Date Walter Juárze MD [address] [phone] PCP - General Family Practice 02/12/15 documented as of this encounter
--- OUTSIDE RECORDS SUMMARY | 2025-04-11 19:00 | XMS_ITS | Encounter Summary ---
Author Organization [facility] Address [address] [place] [address] Care Team Providers Care Collar Turner Operator Name Role Phone Walter Juárez MD Primary Care Provider [phone] Encounter Details Date Type Department Care Team (Latest Contact Info) Description 01/31/2007 Outpatient [facility] Cardiology- [place] [address] [place] [address] Unruly Wilcox MD NO ADDRESS ON FILE Coronary Atherosclerosis of [place] Coronary Artery (Primary Dx); Other and Unspecified Hyperlipidemia Social History Tobacco Use Types Packs/Day Years Used Date Smoking Tobacco: Never Assessed Sex and Gender Information Value Date Recorded Sex Assigned at Not on file Legal Sex Male 4:00 AM BRIM CUTTER Gender Identity Not on file Sexual Orientation Not on file documented as of this encounter Plan of Treatment Not on file documented as of this encounter Visit Diagnoses Diagnosis Coronary atherosclerosis of [place] coronary artery- Primary Other and unspecified hyperlipidemia documented in this encounter Care Teams Collar Turner Operator Relationship Specialty Start Date End Date Walter Juárez MD [address] [place] [address] PCP - General Family Practice 02/12/15 documented as of this encounter
--- OUTSIDE RECORDS SUMMARY | 2025-04-11 19:00 | XMS_ITS | Encounter Summary ---
Author Organization [facility] Address [address] [place] [address] Care Team Providers Care Section Repairer Name Role Phone Walter Juárez MD Primary Care Provider [phone] Encounter Details Date Type Department Care Team (Latest Contact Info) Description 11/21/2006 Outpatient Historical [facility] Int [facility] [address] [place] [address] Venkata Rodney MD [address] [facility] [address] [place] [phone] Precordial Pain (Primary Dx) Social History Tobacco Use Types Packs/Day Years Used Date Smoking Tobacco: Never Assessed Sex and Gender Information Value Date Recorded Sex Assigned at Not on file Legal Sex Male 4:00 AM TRUCK BODY BUILDER APPRENTICE Gender Identity Not on file Sexual Orientation Not on file documented as of this encounter Plan of Treatment Not on file documented as of this encounter Visit Diagnoses Diagnosis Precordial pain- Primary documented in this encounter Care Teams Section Repairer Relationship Specialty Start Date End Date Walter Juárez MD [address], [place] [address] PCP - General Family Practice 02/12/15 documented as of this encounter
--- OUTSIDE RECORDS SUMMARY | 2025-04-11 19:00 | XMS_ITS | Encounter Summary ---
Author Organization [facility] Address [address] [place] [address] Care Team Providers Care Canvas Cutter Hand Name Role Phone Walter Juárez MD Primary Care Provider [phone] Encounter Details Date Type Department Care Team (Latest Contact Info) Description 04/08/2005 Outpatient Historical [facility] Medicine [place] [address] [place] [phone] Harlan Anton, MANUFACTURING SALES REPRESENTATIVE [address] [place] [address] GASTRITIS/DUODEN NOS W/O HEMORRH (Primary Dx) Social History Tobacco Use Types Packs/Day Years Used Date Smoking Tobacco: Never Assessed Sex and Gender Information Value Date Recorded Sex Assigned at Not on file Legal Sex Male 4:00 AM SOLAR PHOTOVOLTAIC INSTALLER Gender Identity Not on file Sexual Orientation Not on file documented as of this encounter Plan of Treatment Not on file documented as of this encounter Visit Diagnoses Diagnosis Unspecified gastritis and gastroduodenitis without mention of hemorrhage- Primary documented in this encounter Care Teams Canvas Cutter Hand Relationship Specialty Start Date End Date Walter Juárez MD [address] [place] [phone] PCP - General Family Practice 02/12/15 documented as of this encounter
--- OUTSIDE RECORDS SUMMARY | 2025-04-11 19:00 | XMS_ITS | Encounter Summary ---
Author Organization [facility] Address [address] [place] [address] Care Team Providers Care Accounts Payable Assistant Name Role Phone Walter Juárez MD Primary Care Provider [phone] Encounter Details Date Type Department Care Team (Latest Contact Info) Description 02/07/2007 Outpatient Historical [facility] Medicine [place] [address] [place] [phone] Harlan Anton, ENGINEERING LEADER [address] [place] [address] Mixed Hyperlipidemia (Primary Dx); Unspecified Essential Hypertension Social History Tobacco Use Types Packs/Day Years Used Date Smoking Tobacco: Never Assessed Sex and Gender Information Value Date Recorded Sex Assigned at Not on file Legal Sex Male 4:00 AM GRADES 9 12 TUTOR Gender Identity Not on file Sexual Orientation Not on file documented as of this encounter Plan of Treatment Not on file documented as of this encounter Visit Diagnoses Diagnosis Mixed hyperlipidemia- Primary Unspecified essential hypertension documented in this encounter Care Teams Accounts Payable Assistant Relationship Specialty Start Date End Date Walter Juárez MD [address] [phone] PCP - General Family Practice 02/12/15 documented as of this encounter
--- OUTSIDE RECORDS SUMMARY | 2025-04-11 19:00 | XMS_ITS | Encounter Summary ---
Author Organization [facility] Address [address] [place] [address] Care Team Providers Care Domestic Violence Counselor Name Role Phone Walter Juárez MD Primary Care Provider [phone] Encounter Details Date Type Department Care Team (Late st Contact Info) Description 12/19/2006 Inpatient Historical [facility] Honorio Spicer MD [address] [place], [place] [address] [place] [address] Coronary Atherosclerosis of [place] Coronary Artery (Primary Dx) Social History Tobacco Use Types Packs/Day Years Used Date Smoking Tobacco: Never Assessed Sex and Gender Information Value Date Recorded Sex Assigned at Not on file Legal Sex Male 4:00 AM SHAREBROKER Gender Identity Not on file Sexual Orientation Not on file documented as of this encounter Plan of Treatment Not on file documented as of this encounter Procedures Procedure Name Priority Date/Time Associated Diagnosis Comments POC GLUCOSE Routine 12/20/2006 5:46 AM CDT POC ACTIVATED CLOTTING TIME Routine 12/19/2006 3:18 PM CDT POC ACTIVATED CLOTTING TIME Routine 12/19/2006 2:08 PM CDT POC ACTIVATED CLOTTING TIME Routine 12/19/2006 12:16 PM CDT POC GLUCOSE Routine 12/19/2006 12:12 PM CDT PT AND APTT Routine 12/19/2006 7:13 AM CDT CBC WITHOUT DIFFERENTIAL Routine 12/19/2006 7:13 AM CDT LIPID PANEL Routine 12/19/2006 7:13 AM CDT BASIC METABOLIC PANEL Routine 12/19/2006 7:13 AM CDT documented in this encounter Results * (ABNORMAL) POC GLUCOSE (12/20/2006 5:46 AM CDT) GLUCOSE POC 124(H) 60 - 100 mg/dL INTERFACE SYSTEM 12/20/2006 5:46 AM CDT Honorio Spicer MD POINT OF CARE TESTING Edited Performing Organization Address [facility] Phone Number INTERFACE SYSTEM Refer to clinic/hospital department * (ABNORMAL) POC ACTIVATED CLOTTING TIME (12/19/2006 3:18 PM CDT) ACT POC 156(H) 79 - 149 sec INTERFACE SYSTEM 12/19/2006 3:18 PM CDT Honorio Spicer MD POINT OF CARE TESTING Edited Performing Organization Address [facility] Phone Number INTERFACE SYSTEM Refer to clinic/hospital department * (ABNORMAL) POC ACTIVATED CLOTTING TIME (12/19/2006 2:08 PM CDT) ACT POC 178(H) 79 - 149 sec INTERFACE SYSTEM 12/19/2006 2:08 PM CDT Honorio Spicer MD POINT OF CARE TESTING Edited Performing Organization Address [facility] Phone Number INTERFACE SYSTEM Refer to clinic/hospital department * (ABNORMAL) POC ACTIVATED CLOTTING TIME (12/19/2006 12:16 PM CDT) ACT POC 233(H) 79 - 149 sec INTERFACE SYSTEM 12/19/2006 12:1 6 PM CDT us Honorio Spicer MD POINT OF CARE TESTING Edited Performing Organization Address [facility] Phone Number INTERFACE SYSTEM Refer to clinic/hospital department * (ABNORMAL) POC GLUCOSE (12/19/2006 12:12 PM CDT) GLUCOSE POC 109(H) 60 - 100 mg/dL INTERFACE SYSTEM 12/19/2006 12:1 2 PM CDT Honorio Spicer MD POINT OF CARE TESTING Edited Performing Organization Address [facility] Phone Number INTERFACE SYSTEM Refer to clinic/hospital department * (ABNORMAL) LIPID PANEL (12/19/2006 7:13 AM CDT) CHOLESTEROL 208(H) 75 - 200 mg/dL INTERFACE SYSTEM HDL 46 40 - 60 mg/dL INTERFACE SYSTEM TRIGLYCERIDE 162 0 - 200 mg/dL INTERFACE SYSTEM CALCULATED LDL CHOLESTEROL 130 0 - 130 mg/dL INTERFACE SYSTEM CALCULATED TOTAL CHOLESTEROL TO HDL RATIO 4.52 3.43 - 4.97 INTERFACE SYSTEM 12/19/2006 7:13 AM CDT us Honorio Spicer MD CHEMISTRY ORDERABLES Edited Performing Organization Address [facility] Phone Number INTERFACE SYSTEM Refer to clinic/hospital department * PT AND APTT (12/19/2006 7:13 AM CDT) PROTIME 14.9 13.0 - 15.7 Secs INTERFACE SYSTEM Comment: As of 06 note change in normal range. INR 1.0 INTERFACE SYSTEM Comment: Expected Values for INR: DVT/PE Goal INR 2.5; range 2.0 - 3.0 Valve Replacement Tissue Goal INR 2.5; range 2.0 - 3.0 Mechanical Goal INR 3.0; range 2.5 - 3.5 POST-MT Goal INR 2.5; range 2.0 - 3.0 or Goal 3.0; range 2.5 - 3.5 Atrial Fibrillation Goal INR 2.5; range 2.0 - 3.0 Ischemic Stroke Goal INR 2.5; range 2.0 - 3.0 For additional information see Guidelines for Anticoagulation available from the pharmacy [facility] PTT 26.7 21.6 - 35.6 Secs INTERFACE SYSTEM Comment: Therapeutic Range: Hi-level PE/DVT heparin protocol 80.1 -95.0 sec Lo-level PE/DVT heparin protocol 67.1 - 80.0 sec Cardiac Heparin Protocol 67.1 - 85.0 sec Neuro Heparin Protocol 67.1 - 80.0 sec As of 05/26/2006 note change in APTT Normal Range. 12/19/2006 7:13 AM CDT us Honorio Spicer MD HEMATOLOGY ORDERABLES Edited INTERFACE SYSTEM Refer to clinic/hospital department * (ABNORMAL) CBC WITHOUT DIFFERENTIAL (12/19/2006 7:13 AM CDT) WBC 4.4(L) 4.8 - 10.8 K/ul INTERFACE SYSTEM RBC 4.34(L) 4.60 - 6.20 Mil/ul INTERFACE SYSTEM HEMOGLOBIN 14.3 14.0 - 18.0 g/dL INTERFACE SYSTEM HEMATOCRIT 41.0 41.0 - 53.0 % INTERFACE SYSTEM MCV 94.5 84.0 - 103.0 Fl INTERFACE SYSTEM MCH 32.9 27.0 - 34.0 pg INTERFACE SYSTEM MCHC 34.9 30.0 - 35.0 g/dL INTERFACE SYSTEM RDW 13.5 11.0 - 14.5 % INTERFACE SYSTEM PLATELETS 140 140 - 440 K/ul INTERFACE SYSTEM MPV 10.7 8.9 - 12.8 Fl INTERFACE SYSTEM NEUTROPHILS 57.4 42.2 - 75.2 % INTERFACE SYSTEM LYMPHOCYTES 28.3 24.0 - 44.0 % INTERFACE SYSTEM MONOCYTES 11.3(H) 2.0 - 10.0 % INTERFACE SYSTEM EOSINOPHILS 2.5 0.0 - 7.0 % INTERFACE SYSTEM BASOPHILS 0.5 0.0 - 1.0 % INTERFACE SYSTEM NEUTROPHIL ABSOLUTE 2.5 2.0 - 8.0 K/ul INTERFACE SYSTEM LYMPHOCYTE ABSOLUTE 1.3 1.2 - 4.0 K/ul INTERFACE SYSTEM MONOCYTE ABSOLUTE 0.5 0.1 - 0.6 K/ul INTERFACE SYSTEM EOSINOPHIL ABSOLUTE 0.1 0.0 - 0.7 K/ul INTERFACE SYSTEM BASOPHILS ABSOLUTE 0.0 0.0 - 0.2 K/ul INTERFACE SYSTEM 12/19/2006 7:13 AM CDT Honorio Spicer MD HEMATOLOGY ORDERABLES Edited Performing Organization Address [facility] de Phone Number INTERFACE SYSTEM Refer to clinic/hospital department * (ABNORMAL) BASIC METABOLIC PANEL (12/19/2006 7:13 AM CDT) GLUCOSE 133(H) 70 - 110 mg/dL INTERFACE SYSTEM BUN 26(H) 9 - 20 mg/dL INTERFACE SYSTEM CREATININE 1.2 0.7 - 1.5 mg/dL INTERFACE SYSTEM SODIUM 145 136 - 145 mEq/L INTERFACE SYSTEM POTASSIUM 5.0 3.5 - 5.0 mEq/L INTERFACE SYSTEM CHLORIDE 106 95 - 110 mEq/L INTERFACE SYSTEM CO2 28 22 - 32 mmol/l INTERFACE SYSTEM CALCIUM 9.5 8.4 - 10.5 mg/dL INTERFACE SYSTEM ANION GAP 16 9 - 20 mEq/L INTERFACE SYSTEM OSMOLALITY, CALCULATED 306(H) 275 - 295 mOsm/Kg INTERFACE SYSTEM 12/19/2006 7:13 AM CDT Honorio Spicer MD CHEMISTRY ORDERABLES Edited Performing Organization Address [facility] de Phone Number INTERFACE SYSTEM Refer to clinic/hospital department documented in this encounter Visit Diagnoses Diagnosis Coronary atherosclerosis of [place] coronary artery- Primary documented in this encounter Care Teams Domestic Violence Counselor Relationship Specialty Start Date End Date Walter Juárez MD [address] [address] PCP - General Family Practice 02/12/15 documented as of this encounter
--- OUTSIDE RECORDS SUMMARY | 2025-04-11 19:00 | XMS_ITS | Encounter Summary ---
Author Organization [facility] Address [address] [place] [address] Care Team Providers Care Manufacturing Shift Supervisor Name Role Phone Tomás Juárez DO Primary Care Provider [phone] Reason for Visit * Reason Comments Med Refill Encounter Details Date Type Department Care Team (Late st Contact Info) Description 04/07/2025 Refill [facility] Medicine [address] [address] Tomás Juárez DO [address] [address] Acquired hypothyroidism Social History Tobacco Use Types Packs/Day Years [...] who hurts you emotionally and/or physically? No 01/29/2025 Food Insecurity Answer Date Recorded Patient needs follow up regardin 10/10/2024 Transportation Needs Answer Date Record ed Patient needs follow up regardin 10/10/2024 Utility Needs Answer Date Recorded Patient needs follow up regardin 10/10/2024 Sex and Gender Information Value Date Recorded Sex Assigned at Not on file Legal Sex Male 4:07 PM CASING COOKER Gender Identity Not on file Sexual Orientation Not on file documented as of this encounter Miscellaneous Notes * Telephone Encounter - Nayeli Kee LPN - 04/08/2025 2:47 PM CDT Medication Refill Request Last Fill Date:08/09/24 #90 x 1 refill Recent and Future Visits: Recent Visits Date Type Provider Dept 02/11/25 Office Visit Leatha Gonzalez, [facility] 12/10/24 Office Visit Tomás Juárez DO [facility] 09/21/24 Video Visit Padmini Carr [facility] Medicine Teresa 08/28/24 Office Visit Marzena Rodriguez [facility] 05/22/24 Office Visit Leatha Gonzalez [facility] 05/18/24 Office Visit Padmini Carr [facility] 05/08/24 Office Visit Marzena Rodriguez [facility] 04/12/24 Office Visit Leatha Gonzalez [facility] 02/10/24 Office Visit Tomás Juárez DO [facility] 01/11/24 Office Visit Tomás Juárez DO [facility] Showing recent visits within past 540 days with a meds authorizing provider and meeting all other requirements Future Appointments Date Type Provider Dept 05/14/25 Appointment Leatha Gonzalez FNP [facility] Showing future appointments within next 365 days with a meds authorizing provider and meeting all other requirements Last Labs: Lab Results Component Value Date/Time TSH 1.79 12/10/2024 12:11 PM T4FREE 1.2 10/25/2022 03:12 PM documented in this encounter Plan of Treatment Upcoming Encounters Date Type Department Care Team (Late st Contact Info) Description 05/01/2025 1:40 PM CASING COOKER Office Visit [facility] Pain Management [address] [place] [address] Ralph Rodriguez, JUMANA [address] [place] [address] 05/14/2025 10:20 AM CASING COOKER Office Visit [facility] [address] [place] [id number] Leatha Gonzalez FNP [address] [phone] 01/21/2026 1:40 PM CDT Office Visit [facility] Cardiology [facility] [address] [place] [address] Tory Vargas FNP [address] [place] [address] 03/13/2026 9:30 AM CDT Office Visit [facility] Urology [place] [address] [place] [address] Walter Orlando NP [address] [phone] documented as of this encounter Visit Diagnoses Diagnosis Acquired hypothyroidism Unspecified hypothyroidism documented in this encounter Care Teams Manufacturing Shift Supervisor Relationship Specialty Start Date End Date Tomás Juárez DO [address] [place] [address] PCP - General Family Practice 06/05/21 documented as of this encounter
--- OUTSIDE RECORDS SUMMARY | 2025-04-11 19:00 | XMS_ITS | Encounter Summary ---
Author Organization [facility] Address [address] [place] [address] Care Team Providers Care Vocal Music Instructor Name Role Phone Walter Juárez MD Primary Care Provider [phone] Encounter Details Date Type Department Care Team (Latest Contact Info) Description 12/06/2002 Outpatient Historical HIS [facility] Mynor Garcia MD NO ADDRESS ON FILE Enthesopathy of hip (Primary Dx) Social History Tobacco Use Types Packs/Day Years Used Date Smoking Tobacco: Never Assessed Sex and Gender Information Value Date Recorded Sex Assigned at Not on file Legal Sex Male 4:00 AM SALVATIONIST Gender Identity Not on file Sexual Orientation Not on file documented as of this encounter Plan of Treatment Not on file documented as of this encounter Visit Diagnoses Diagnosis Enthesopathy of hip- Primary Enthesopathy of hip region documented in this encounter Care Teams Vocal Music Instructor Relationship Specialty Start Date End Date Walter Juárez MD [address] [place] [address] PCP - General Family Practice 02/12/15 documented as of this encounter
--- OUTSIDE RECORDS SUMMARY | 2025-04-11 19:00 | XMS_ITS | Clinical Summary ---
Author Organization [facility] de Address [address] [place] [address] Phone Care Team Providers Care Stitching Department Supervisor Name Role Phone Tomás Juárez DO Primary Care Provider [phone] Allergies Active Allergy Reactions Criticality Noted Date Comments Hymenoptera Allergenic Extract Anaphylaxis High 01/19 Bee stings Metformin Diarrhea Low 12/09/2017 Medications iron/vitamin B complex (GERITOL ORAL) Take by mouth daily. 015 Active aspirin 81 mg chewable tablet Take 81 mg by mouth daily. Active clopidogreL (PLAVIX) 75 mg TabletIndications :Coronary artery disease involving pass[place]qu[place]dy coronary artery without angina pectoris, unspecified whether passamaquoddy or transplanted heart Take 1 Tablet (75 mg) by mouth daily. 90 Tablet 3 024 Active promethazine-dext romethorphan (PHENERGAN-DM) 6.25-15 mg/5 mL syrup Take 5 mL by mouth every 6 hours as needed for Cough. 120 mL 024 Active losartan (COZAAR) 25 mg tabletIndications :Type 2 diabetes mellitus with hyperglycemia, without long-term current use of insulin,Coronary artery disease, unspecified vessel or lesion type, unspecified whether angina present, unspecified whether pass[place]dy or transplanted heart TAKE 1 TABLET DAILY 90 Tablet 3 025 Active nitroglycerin (Nitrostat) 0.4 mg Tablet, SublingualIndicat ions:Coronary artery disease involving passamaqu[place]dy coronary artery of passamaqu[place]dy heart without angina pectoris Place 1 Tablet (0.4 mg) under tongue every 5 minutes as needed for Chest Pain. 25 Tablet 3 025 Active OTHERIndications: Pressure injury of skin of buttock, unspecified injury stage, unspecified laterality,Spinal stenosis of lumbar region, unspecified whether neurogenic claudication present,Reduced mobility Powered lift chair to assist him with standing from a sitting position 1 Each 025 Active flash glucose scanning reader ([employer] Oanh 2 [place]) MiscIndications:T ype 2 diabetes mellitus with hyperglycemia, without long-term current use of insulin Use to check blood glucose daily and prn. Dx E11.65 1 Each 025 Active cholecalciferol, vitamin D3, 1,000 unit Take 1,000 Units by mouth daily. Active SITagliptin phosphate (JANUVIA) 50 mg TabletIndications :Type 2 diabetes mellitus with hyperglycemia, without long-term current use of insulin Take 1 Tablet (50 mg) by mouth daily with breakfast. 90 Tablet 3 025 Active Sodium Chloride 1,000 mg Tablet, SolubleIndication s:Primary hypertension Take 1 Tablet (1,000 mg) by mouth daily. 90 Tablet 025 Active escitalopram oxalate (LEXAPRO) 10 mg tabletIndications :Depression, unspecified depression type Take 1 Tablet (10 mg) by mouth daily. 90 Tablet 1 025 Active albuterol sulfate HFA 90 mcg/actuation aerosol inhalerIndication s:Acute cough Take 2 Puffs by inhalation every 6 hours as needed for Shortness of Breath. 8.5 Gram 2 025 Active glimepiride (AMARYL) 2 mg tablet Take 1 Tablet (2 mg) by mouth daily with breakfast. DIABETES 100 Tablet 3 025 Active atorvastatin (LIPITOR) 40 mg tabletIndications :Hyperlipidemia, unspecified hyperlipidemia type TAKE 1 TABLET DAILY WITH SUPPER 100 Tablet 3 025 Active isosorbide mononitrate (IMDUR) 30 mg Extended Release 24 hour tablet TAKE 1 TABLET DAILY IN THE MORNING 90 Tablet 3 08/25/2 025 Active pantoprazole (Protonix) 40 mg Tablet, Delayed Release (E.C.)Indications :Gastroesophageal reflux disease, unspecified whether esophagitis present Take 1 Tablet (40 mg) by mouth daily. 90 Tablet 1 Active Blood-Glucose Meter,Continuous (FreeStyle Oanh 3 [place])Indication s:Type 2 diabetes mellitus with hyperglycemia, without long-term current use of insulin Use meter to check sugar continuously. 1 Each Active doxazosin (CARDURA) 8 mg tabletIndications :Urinary retention Take 1 Tablet (8 mg) by mouth daily. 90 Tablet 3 Active blood sugar diagnostic (Precision Xtra Test) StripIndications: Type 2 diabetes mellitus with hyperglycemia, without long-term current use of insulin USE ONCE DAILY TO CHECK SUGAR 100 Strip 3 Active insulin glargine (Lantus Solostar U-100 Insulin) 100 unit/mL pen syringeIndication s:Type 2 diabetes mellitus with hyperglycemia, without long-term current use of insulin Inject 10 Units by subcutaneous injection daily with breakfast. 9 mL 1 Active Insulin [place], Disposable, 31 gauge x 3/16 NeedleIndications :Type 2 diabetes mellitus with hyperglycemia, without long-term current use of insulin For use with insulin 100 Each 1 Active levothyroxine 75 mcg tabletIndications :Acquired hypothyroidism TAKE 1 TABLET DAILY EARLY IN THE MORNING FOR THYROID REPLACEMENT 90 Tablet 1 Active Blood-Glucose Sensor (FreeStyle Oanh 3 Plus Sensor) DeviceIndications :Type 2 diabetes mellitus with hyperglycemia, without long-term current use of insulin Use to monitor glucose continuously. Replace sensor every 15 days. 6 Each 3 Active blood sugar diagnostic StripIndications: Type 2 diabetes mellitus with hyperglycemia, without long-term current use of insulin Once daily to check sugar Dx E11.65 100 Each 3 024 2024 Discontinued levothyroxine 75 mcg tabletIndications :Acquired hypothyroidism TAKE 1 TABLET DAILY EARLY IN THE MORNING FOR THYROID REPLACEMENT 90 Tablet 1 025 2024 Discontinued insulin glargine (Lantus Solostar U-100 Insulin) 100 unit/mL pen syringeIndication s:Type 2 diabetes mellitus with hyperglycemia, without long-term current use of insulin Inject 10 Units by subcutaneous injection daily with breakfast. 15 mL 1 12/10/ 025 2024 Discontinued(R eorder) Insulin [place], Disposable, 31 gauge x 3/16 NeedleIndications :Type 2 diabetes mellitus with hyperglycemia, without long-term current use of insulin For use with insulin 100 Each 1 12/14/2 025 2024 Discontinued(R eorder) Blood-Glucose Sensor (FreeStyle Oanh 3 Sensor) DeviceIndications :Type 2 diabetes mellitus with hyperglycemia, without long-term current use of insulin 1 sensor every 14 days 6 Each 2 03/04/ 025 2024 Discontinued(R eorder) Blood-Glucose Sensor (FreeStyle Oanh 3 Sensor) DeviceIndications :Type 2 diabetes mellitus with hyperglycemia, without long-term current use of insulin 1 sensor every 14 days 6 Each 2 025 2024 Discontinued(A lternate therapy prescribed) Active Problems Problem Noted Date Diagnosed Date History of falling 10/04/2024 Urinary retention 10/04/2024 Hyponatremia 10/04/2024 Hypertension 10/04/2024 Lumbar radiculitis 09/18/2024 Lumbosacral spondylosis without myelopathy 09/18 Degeneration of intervertebr al disc of lumbosacral region with discogenic back pain and lower extremity pain 09/18/2024 Acute bilateral low back pain with right-sided s ciatica 09/15/2024 Constipation 03/26/2024 Syncope 03/09/2024 Refused influenza vaccine 03/09/2024 Acquired hypothyroidism 01/21/2020 Photosensitivity dermatitis due to sun 8 Leukopenia 10/28/2016 Ligamentum flavum hypertrophy 01/15/2016 Neuroforaminal stenosis of lumbar spine 01/15/20 16 Lumbar stenosis with neurogenic claudication Overview (10/16/2020): mod/severe L2-3, L3-4, L4-5 Lumbar facet arthropathy 01/15/2016 Levoscoliosis 01/15/2016 Overview (10/16/2020): lumbar, centered L2-3 Discogenic low back pain 01/15/2016 DDD (degenerative disc disease), lumbar 01/15/20 16 Chest pain at rest 04/02/2015 Abnormal stress test 03/29/2015 S/P drug eluting coronary stent placement 2014 Overview (10/16/2020): S/p PUNEET RCA Elevated prostate specific antigen (PSA) 013 Corns and callosities 09/11/2012 Family history of malignant neoplasm of prostate 01/07/2012 Exostosis 12/25/2011 Bradycardia 10/17/2009 Type 2 diabetes mellitus with hyperglycemia 01/19 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 02/14/2009 CAD (coronary artery disease) 02/14/2009 Overview (10/16/2020): 12/24 - Coronary angiography revealed:Hemodynamic Data: The [...] Problem Noted Date Diagnosed Date Resolved Date Stable angina 05/05/2020 10/25/2022 Thrombocytopenia 10/28/2016 10/01/2021 Angina, class III 03/29/2015 09/14/2019 Ingrown right big toenail 03/12/2013 Pancytopenia 01/30/2010 10/01/2021 Leukopenia 10/20/2009 04/14/2012 Thrombocytopenia, unspecified 10/20/2009 04/14/2012 Encounters Date Type Department Care Team Description 04/07/[address] [address] Tomás Juárez DO Acquired hypothyroidism 03/31/[address] [address] Tomás Juárez, DO Type 2 diabetes mellitus with hyperglycemia, without long-term current use of insulin 03/31/[address] [address] Tomás Juárez DO Type 2 diabetes mellitus with hyperglycemia, without long-term current use of insulin 03/22/[address] [address] Tomás Juárez DO Type 2 diabetes mellitus with hyperglycemia, without long-term current use of insulin 03/13/[address] [address] Tomás Juárez DO Type 2 diabetes mellitus with hyperglycemia, without long-term current use of insulin ([facility]) 03/12/2025 10:00 AM CDT Office Visit [facility] [address] [place] [phone] Walter Orlando, DASHAWN 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); Urinary retention 02/13/2025 External Device Data STL ABSTRACTION Provider, Abstract 02/11/2025 11:00 AM CDT Office Visit [address] [address] Leatha Gonzalez FNP Medicare annual wellness visit, subsequent (Primary Dx); Gastroesophageal reflux disease, unspecified whether esophagitis present 02/11/2025 [facility] [address] [facility] [address] [place] [id number] Tory Vargas FNP 02/11/2025 Refill [facility] [address] [address] Tomás Juárez DO Hyperlipidemia, unspecified hyperlipidemia type 02/05/2025 External Device Data STL ABSTRACTION Provider, Abstract 02/05/2025 External Device Data STL ABSTRACTION Provider, Abstract 02/04/2025 10:30 AM CDT Office Visit [facility] [place] [address] [phone] Consuelo Agee DO 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); 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 Telephone [facility] [address] [address] Tomás Juárez DO Provider Call 01/31/2025 Telephone [facility] [place] [address] [address] Consuelo Agee DO Appointment Verification 01/29/2025 10:33 AM CDT - 01/29/2025 11:59 PM CDT Hospital Encounter [facility] Procedures [place] [address] [place] [phone] Ryan Buitrago MD Discharge Disposition: Home or Self Care 01/29/2025 10:12 AM CDT - 01/29/2025 11:59 PM CDT Hospital Encounter [facility] Procedures [place] [address] [place] [address] Ryan Buitrago MD Discharge Disposition: Home or Self Care 01/23/2025 Telephone [facility] [address] [phone] Tomás Juárez DO Provider Call 01/16/2025 10:00 AM CDT Office Visit [facility] [address] [facility] [address] [place] [address] Tory Vargas FNP Coronary artery disease involving passamaquoddy coronary artery of passamaquoddy heart without angina pectoris (Primary Dx); Mixed hyperlipidemia; Murmur, cardiac; S/P drug eluting coronary stent placement; Syncope, unspecified syncope type; Celiac artery stenosis 01/16/2025 Telephone [facility] [place] [address] [place] [address] Abdoulaye Montano MD Referral 01/10/2025 Telephone [facility] [address] [place] [address] Tomás Juárez DO Provider Call from Last 3 Months Immunizations Immunization Administration Dates Next Due (ADACEL/BOOSTRIX)(10 YR UP) TDAP VACCINE, 0.5ML, IM 12/31/2023 (PFIZER)(12 YR UP) COVID-19 VACCINE - EMERGENCY USE AUTHORIZATION, MRNA, [id number](PF) 30 MCG/0.3 ML IM SUSP 05/01/2021 (PNEUMOVAX 23)(50 YRS UP) PN EUMOCOCCAL POLYSACCHARIDE (PPV23) 0.5 ML, IM 05/05/2020,06/20/1995 INFLUENZA VACCINE HIGH DOSE QUADRIVALENT 65 YR UP PF IM 04/28/2022,05/05/2021,04/09/2020,05/23,04/02/2015 INFLUENZA VACCINE HIGH DOSE TRIVALENT SPLIT VIRUS, (65 YR UP), 0.5ML (PF), IM 04/12/2024 INFLUENZA VACCINE QUADRIVALE NT 6 MOS UP IM 05/29/2014,05/08/2013 INFLUENZA VACCINE QUADRIVALE NT 6 MOS UP PF IM 06/10/2021,05/04/2019 Influenza Seasonal Unspecifi ed Formulation IM 05/04/2017,03/25/2016,03/17/2010,05/23,04/20/2005 Influenza Vaccine High Dose 65+ Yrs IM 8,04/02/2015 Influenza Vaccine Quad Split 3+ Yrs Im 4 Influenza Vaccine Split 3+ Yrs IM 2012,04/04/2012,03/24/2011,05/26,06/18/2008 PREVNAR (PCV13) pneumococcal 13-valent conjugate Vaccine 03/24/2016 Pneumococcal conjugate, unsp ecified formulation 03/17/2010 Skin Test TB 01/17/2024 Zoster Vaccine Live SQ 03/24/2016 Family History Medical History Relation Name Comments Diabetes Brother 1 Ryley Virtue Ulcers Brother 2 Ulcers Father Heart Disease Mother Marium Harris Diabetes Sister Emily Harris Relation Name Status Comments Brother 1 Ryley Virtue Brother 2 Father Mother Marium Harris Sister Emily Harris Social History Tobacco Use Types Packs/Day Years Used Date Smoking Tobacco: Former Cigarettes 1 17.6 0 10/27/1953 - 06/20/1971 Passive Smoke Exposure: Past Smokeless Tobacco: Never Tobacco Cessation:Counseling Given: No [...] on file Legal Sex 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 Gender Identity Not on file Sexual Orientation Not on file Last Filed Vital Signs Vital Sign Reading Time Taken Comments Blood Pressure 100/58 02/11/2025 11:01 AM CDT Pulse 99 02/11/2025 11:01 AM CDT Temperature 36.5 C (97.7 F) 02/11/2025 11:01 AM CDT Respiratory Rate 17 02/11/2025 11:0 1 AM CDT Oxygen Saturation 99% 02/11/2025 11: 01 AM CDT Inhaled Oxygen Concentration - - Weight 70.2 kg (154 lb 12.8 oz) 025 11:01 AM CDT Height 160 cm (5' 3 ) 02/11/2025 11:01 AM CDT Body Mass Index 27.42 02/11/2025 11:01 AM CDT Plan of Treatment Upcoming Encounters Date Type Department Care Team (Late st Contact Info) Description 05/01/2025 1:40 PM REEXAMINER Office Visit [facility] [address] [place] [address] Ralph Rodriguez PA [address] [place] [address] 05/14/2025 10:20 AM REEXAMINER Office Visit [facility] [address] [phone] Leatha Gonzalez, [facility] [address] [phone] 01/21/2026 1:40 PM CDT Office Visit [facility] [address] [facility] [address] [place] [address] Tory Vargas, [facility] [address] [facility] [address] [place] [address] 03/13/2026 9:30 AM CDT Office Visit [facility] [place] [address] [place] [address] Walter Orlando NP [address] [place] [address] Health Maintenance Due Date Last Done Comments RSV VACCINE (60+ or ) (1 - 1-dose 75+ series) 2011 ZOSTER VACCINE (2 of 3) 05/19/2016 03/24/2016 DIABETES ANNUAL RETINAL EXAM 11/29/202405/2024, 11/10/2022, 11/10/2022, Additional history exists INFLUENZA VACCINE (#1) 2025 4, 04/28/2022, 06/10/2021, Additional history exists COVID-19 Vaccine (2 - 2024-2 6 season) 2025 05/01/2021 DIABETES: A1C (Auto Order) 03/12/202512/10, 02/10/2024, 10/26/2023, Additional history exists DIABETES HBA1C Q 6 MONTHS 06/11/20252024, 02/10/2024, 10/26/2023, Additional history exists DIABETES ANNUAL FOOT EXAM 12/10/20252024, 07/18/2023, 04/28/2022, Additional history exists DIABETES MICROALBUMIN ANNUAL SCREEN 12/10/2025 12/10/2024, 10/25/2022, 04/28/2022, Additional history exists LDL CHOLESTEROL ANNUAL 12/10/2025 , 10/26/2023, 07/07/2023, Additional history exists Traditional Medicare (ACO) A nnual Wellness Visit 02/12/2026 02/11/2025, 07/18/2023, 04/28/2022 DTAP/TDAP/TD VACCINES (2 - T d or Tdap) 12/30/2033 12/31/2023 PNEUMOCOCCAL VACCINE 50+ YEARS Completed 1 07/05/2019, 03/24/2016, 03/17/2010, Additional history exists Medical Devices Implanted Type Area Dish Room Worker Device Identifier Shelf Expiration Date Model / Serial / Lot Promus Premier 3x12 Implanted:03/28 (Quantity not on file) Stent / / [id number] Stent Synergy Xd 2.5x8mm Evrs ut [id number] - [id number] Implanted:Qty: 1 on 11/04/2022 at [facility] Stent Left: Coronary Framed Data VAL 01/19/2024 [id number] / / [id number] Procedures Procedure Name Priority Date/Time Associated Diagnosis Comments PROCEDURE REPORT 02/25/2025 7:57 AM CDT XR FLUORO NEEDLE GUIDANCE SPINE Routine 01/29/2025 10:39 AM CDT MICROALBUMIN/CREATIN INE RATIO, RANDOM UR Routine 12/10/2024 12:25 PM CDT Type 2 diabetes mellitus with hyperglycemia, without long-term current use of insulin ([facility]) LIPID PANEL Routine 12/10/2024 12:11 PM CDT Type 2 diabetes mellitus with hyperglycemia, without long-term current use of insulin ([facility]) HEMOGLOBIN A1C Routine 12/10/2024 12:11 PM CDT Type 2 diabetes mellitus with hyperglycemia, without long-term current use of insulin ([facility]) HM DIABETES EYE EXAM Routine 11/10/2022 11:13 AM CDT from Last 3 Months or Most Recently Relevant to Health Maintenance Results * PROCEDURE REPORT (02/25/2025 7:57 AM CDT) us Provider Scanning PROCEDURE/MINOR SURGICAL ORDER THANH Final Result * XR FLUORO NEEDLE GUIDANCE SPINE (01/29/2025 10:39 AM CDT) Narrative 01/29/2025 10:39 AM CDT Order information only. Exam was auto-finalized. Ryan Buitrago MD DIAGNOSTIC IMAGING ORDERAB LES Final Result * (ABNORMAL) MICROALBUMIN/CREATININE RATIO, RANDOM UR (12/10/2024 12:25 PM CDT) CREATININE, URINE 65 20 - 320 mg/dL [facility] ALBUMIN, URINE 2.1 See Note: mg/dL [facility] Comment: Reference Range: Reference Range Not established ALB/CREAT RATIO, URINE 32(H) <30 mg/g creat [facility] Comment: The ADA defines abnormalities in albumin excretion as follows: Albuminuria Category Result (mg/g creatinine) Normal to Mildly increased <30 Moderately increased 30-299 Severely increased > OR = 300 The ADA recommends that at least two of three specimens collected within a 3-6 month period be abnormal before considering a patient to be within a diagnostic category. Test Performed at: [facility] [address] Craig Galindo MD Urine URINE SPECIMEN OBTAINED BY CLEAN CATCH PROCEDURE / Unknown 12/10/2024 12:25 PM CDT 12/10/2024 12:25 PM CDT Tomástyler Juárez URINE ORDERABLES Final Result [facility] [phone] [facility] [address] * (ABNORMAL) HEMOGLOBIN A1C (12/10/2024 12:11 PM CDT) HEMOGLOBIN A1C 8.0(H) <5.7 % [facility] Comment: For someone without known diabetes, a hemoglobin A1c value of 6.5% or greater indicates that they may have diabetes and this should be confirmed with a follow-up test. For someone with known diabetes, a value <7% indicates that their diabetes is well controlled and a value greater than or equal to 7% indicates suboptimal control. A1c targets should be individualized based on duration of diabetes, age, comorbid conditions, and other considerations. Currently, no consensus exists regarding use of hemoglobin A1c for diagnosis of diabetes for children. ESTIMATED AVERAGE GLUCOSE (MG/DL) 183 mg/dL [facility] ESTIMATED AVERAGE GLUCOSE (MMOL/L) 10.1 mmol/L [facility] Comment: FASTING:NO FASTING: NO Test Performed at: [facility] [address] [place] [address] [place] [address] Craig Galindo MD Blood 12/10/2024 12:1 1 PM CDT 12/10/2024 12:12 PM CDT Tomás Juárez DO CHEMISTRY ORDERABLES Final Re sult Performing Organization Address City/[facility]/ZIP Co de Phone Number [facility] [phone] [facility] [address] [facility] [place] [address] * LIPID PANEL (12/10/2024 12:11 PM CDT) CHOLESTEROL 144 <200 mg/dL [facility] HDL 62 > OR = 40 mg/dL [facility] TRIGLYCERIDE 76 <150 mg/dL [facility] LDL CALCULATED 66 mg/dL (calc) [facility] Comment: Reference range: <100 Desirable range <100 mg/dL for primary prevention; <70 mg/dL for patients with CHD or diabetic patients with > or = 2 CHD risk factors. LDL-C is now calculated using the Kylee calculation, which is a validated novel method providing better accuracy than the Friedewald equation in the estimation of LDL-C. Kyle ROSA et al. DIEGO. 2013;310(19): 1757-7526 (http://education.Pod Inns/faq/NCF310) CHOL/HDL RATIO 2.3 <5.0 (calc) [facility] NON-HDL CHOLESTEROL 82 <130 mg/dL (calc) [facility] Comment: For patients with diabetes plus 1 major ASCVD risk factor, treating to a non-HDL-C goal of <100 mg/dL (LDL-C of <70 mg/dL) is considered a therapeutic option. Test Performed at: [facility] [address] [place] [phone] Craig aGlindo MD Blood 12/10/2024 12:1 1 PM CDT 12/10/2024 12:12 PM CDT Tomás Juárez DO CHEMISTRY ORDERABLES Final Re sult Performing Organization Address City/[facility]/ZIP Co de Phone Number [facility] [phone] [facility] [address] [place] [phone] * HM DIABETES EYE EXAM (11/10/2022 11:13 AM CDT) us Abstract Provider HEALTH MAINTENANCE Final Resul t from Last 3 Months or Most Recently Relevant to Health Maintenance Insurance MEDICARE PART A AND B FOR LIFE [employer] [facility] Advance Directives For more information, please contact: [phone] Documents on File Type Date Recorded Patient Threading Machine Feeder Automatic Expl anation Advance Directive POA 12/14/2024 11:25 AM Advance Directive POA * Full Code (Latest Code Status on File) Date Activated Date Inactivated Comments 10/04/2024 3:55 PM 10/08/2024 3:49 PM * Full Code Date Activated Date Inactivated Comments 11/04/2022 9:31 AM 11/05/2022 2:30 PM Care Teams Stitching Department Supervisor Relationship Specialty Start Date End Date Tomás Juárez DO [address], [place] [address] PCP - General Family Practice 06/05/21
--- OUTSIDE RECORDS SUMMARY | 2025-04-11 19:00 | XMS_ITS | Encounter Summary ---
Author Organization [facility] Address [address] [place] [address] Care Team Providers Care Retail Sales Director Name Role Phone Walter Juárez MD Primary Care Provider [phone] Encounter Details Date Type Department Care Team (Latest Contact Info) Description 11/21/2006 Outpatient Historical [facility] [place] [address] [place] [phone] Unruly Wilcox MD NO ADDRESS ON FILE Unspecified Chest Pain (Primary Dx); Nonspecific Abnormal Electrocardiogram (ECG) (EKG) Social History Tobacco Use Types Packs/Day Years Used Date Smoking Tobacco: Never Assessed Sex and Gender Information Value Date Recorded Sex Assigned at Not on file 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
--- OUTSIDE RECORDS SUMMARY | 2025-04-11 19:00 | XMS_ITS | Encounter Summary ---
Author Organization [facility] Address [address] [place] [address] Care Team Providers Care Occupational Therapist Rehab Manager Name Role Phone Walter Juárez MD Primary Care Provider [phone] Encounter Details Date Type Department Care Team (Latest Contact Info) Description 05/08/2007 Outpatient Historical [facility] Cardiology [facility] [address] [place] [address] Unruly Wilcox MD NO ADDRESS ON FILE Other and Unspecified Angina Pectoris (Primary Dx) Social History Tobacco Use Types Packs/Day Years Used Date Smoking Tobacco: Never Assessed Sex and Gender Information Value Date Recorded Sex Assigned at Not on file 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
--- OUTSIDE RECORDS SUMMARY | 2025-04-11 19:00 | XMS_ITS | Encounter Summary ---
Author Organization [facility] Address [address] [place] [address] Care Team Providers Care Stacking Machine Operator Name Role Phone Walter Juárez MD Primary Care Provider [phone] Encounter Details Date Type Department Care Team (Late st Contact Info) Description 11/19/2006 Emergency [facility] Emergency Department [address] [place] [phone] Jose De Jesus Anderson MD [address] [place], [place] [phone] Unspecified Transient Cerebral Ischemia (Primary Dx) Social History Tobacco Use Types Packs/Day Years Used Date Smoking Tobacco: Never Assessed Sex and Gender Information Value Date Recorded Sex Assigned at Not on file 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 Gender Identity Not on file Sexual Orientation Not on file documented as of this encounter Plan of Treatment Not on file documented as of this encounter Procedures Procedure Name Priority Date/Time Associated Diagnosis Comments CARDIAC ENZYMES Routine 11/19/2006 11:43 AM CDT CBC WITH DIFFERENTIAL Routine 11/19/2006 11:43 AM CDT BASIC METABOLIC PANEL Routine 11/19/2006 11:[address] HEAD WO CONTRAST Routine 11/19/2006 1 0:57 AM CDT documented in this encounter Results * CARDIAC ENZYMES (11/19/2006 11:43 AM CDT) TROPONIN I <0.1 0.0 - 1.3 ng/mL INTERFACE SYSTEM Comment: As of 06 the Troponin Reference Range has changed from 0.0-1.5 ng/ml to 0.0- 1.3 ng/ml due to a change in testing methodology. CKMB 3.7 0.0 - 5.0 ng/mL INTERFACE SYSTEM 11/19/2006 11:4 3 AM CDT Jose De Jesus Anderson MD CHEMISTRY ORDERABLES Edite d Performing Organization Address [facility] Phone Number INTERFACE SYSTEM Refer to clinic/hospital department * (ABNORMAL) BASIC METABOLIC PANEL (11/19/2006 11:43 AM CDT) GLUCOSE 108 70 - 110 mg/dL INTERFACE SYSTEM BUN 26(H) 9 - 20 mg/dL INTERFACE SYSTEM CREATININE 1.2 0.7 - 1.5 mg/dL INTERFACE SYSTEM SODIUM 141 136 - 145 mEq/L INTERFACE SYSTEM POTASSIUM 4.1 3.5 - 5.0 mEq/L INTERFACE SYSTEM CHLORIDE 109 95 - 110 mEq/L INTERFACE SYSTEM CO2 29 22 - 32 mmol/l INTERFACE SYSTEM CALCIUM 9.2 8.4 - 10.5 mg/dL INTERFACE SYSTEM ANION GAP 7(L) 9 - 20 mEq/L INTERFACE SYSTEM OSMOLALITY, CALCULATED 295 275 - 295 mOsm/Kg INTERFACE SYSTEM 11/19/2006 11:4 3 AM CDT Jose De Jesus Anderson MD CHEMISTRY ORDERABLES Edite d Performing Organization Address [facility] Phone Number INTERFACE SYSTEM Refer to clinic/hospital department * (ABNORMAL) CBC WITH DIFFERENTIAL (11/19/2006 11:43 AM CDT) WBC 2.9(L) 4.8 - 10.8 K/ul INTERFACE SYSTEM RBC 4.18(L) 4.60 - 6.20 Mil/ul INTERFACE SYSTEM HEMOGLOBIN 13.6(L) 14.0 - 18.0 g/dL INTERFACE SYSTEM HEMATOCRIT 39.1(L) 41.0 - 53.0 % INTERFACE SYSTEM MCV 93.5 84.0 - 103.0 Fl INTERFACE SYSTEM MCH 32.5 27.0 - 34.0 pg INTERFACE SYSTEM MCHC 34.8 30.0 - 35.0 g/dL INTERFACE SYSTEM RDW 13.6 11.0 - 14.5 % INTERFACE SYSTEM PLATELETS 141 140 - 440 K/ul INTERFACE SYSTEM MPV 10.5 8.9 - 12.8 Fl INTERFACE SYSTEM NEUTROPHILS 44.1 42.2 - 75.2 % INTERFACE SYSTEM LYMPHOCYTES 40.1 24.0 - 44.0 % INTERFACE SYSTEM MONOCYTES 13.4(H) 2.0 - 10.0 % INTERFACE SYSTEM EOSINOPHILS 2.1 0.0 - 7.0 % INTERFACE SYSTEM BASOPHILS 0.3 0.0 - 1.0 % INTERFACE SYSTEM NEUTROPHIL ABSOLUTE 1.3(L) 2.0 - 8.0 K/ul INTERFACE SYSTEM LYMPHOCYTE ABSOLUTE 1.2 1.2 - 4.0 K/ul INTERFACE SYSTEM MONOCYTE ABSOLUTE 0.4 0.1 - 0.6 K/ul INTERFACE SYSTEM EOSINOPHIL ABSOLUTE 0.1 0.0 - 0.7 K/ul INTERFACE SYSTEM BASOPHILS ABSOLUTE 0.0 0.0 - 0.2 K/ul INTERFACE SYSTEM 11/19/2006 11:4 3 AM CDT Jose De Jesus Anderson MD HEMATOLOGY ORDERABLES Edit ed INTERFACE SYSTEM Refer to clinic/hospital department * CT HEAD WO CONTRAST (11/19/2006 10:57 AM CDT) Anatomical Region Laterality Modality Head Other 11/19/2006 10:5 7 AM CDT Narrative 11/19/2006 10:57 AM CDT Exam: CT Head without ContrastDate/Time of Exam: Nov 19, 2006 11:47:43 AMHistory: MOUTH NUMBNESS/RT HAND NUMB. Technique: 2.5 and 5.0 mm axial. Comparison: None. Findings: The ventricles and subarachnoid spaces are symmetric and normal in size for the patient'sstated age. The brain parenchymal is normal in attenuation with preservation of the lock whitematter interface. No intracranial hemorrhage is identified. The visualized paranasal sinuses,mastoid air cells, and orbits are unremarkable. Impression: 1. Negative cranial computed tomography. - Dictated By: Kimmy Vasques M.D. Electronically Signed By: Kimmy Vasques M.D. Date Signed: 11/19/06 Procedure Note 05/10/2009 Exam: CT Head without ContrastDate/Time of Exam: Nov 19, 2006 11:47:43 AMHistory: MOUTH NUMBNESS/RT HAND NUMB. Technique: 2.5 and 5.0 mm axial. Comparison: None. Findings: The ventricles and subarachnoid spaces are symmetric and normal in sizefor the patient'sstated age. The brain parenchymal is normal in attenuation with preservation of thegray whitematter interface. No intracranial hemorrhage is identified. The visualized paranasalsinuses,mastoid air cells, and orbits are unremarkable. Impression: 1. Negative cranial computed tomography. - Dictated By: Kimmy Vasques M.D. Electronically Signed By: Kimmy Vasques M.D. Date Signed: 11/19/06 Jose De Jesus Anderson MD CT ORDERABLES Final Resu lt documented in this encounter Visit Diagnoses Diagnosis Unspecified transient cerebral ischemia- Primary documented in this encounter Care Teams Stacking Machine Operator Relationship Specialty Start Date End Date Walter Juárez MD [address] [place] [phone] PCP - General Family Practice 02/12/15 documented as of this encounter
--- OUTSIDE RECORDS SUMMARY | 2025-04-11 19:00 | XMS_ITS | Encounter Summary ---
Author Organization [facility] Address [address] [place] [address] Care Team Providers Care Industrial Tractor Driver Name Role Phone Walter Juárez MD Primary Care Provider [phone] Encounter Details Date Type Department Care Team (Latest Contact Info) Description 10/12/[address] 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
--- OUTSIDE RECORDS SUMMARY | 2025-04-11 19:00 | XMS_ITS | Encounter Summary ---
Author Organization [facility] Address [address] [place] [address] Care Team Providers Care Crisis Clinician Name Role Phone Walter Juárez MD Primary Care Provider [phone] Encounter Details Date Type Department Care Team (Latest Contact Info) Description 01/03/2007 Outpatient Historical [facility] Medicine [place] [address] [place] [phone] Oswaldo Hernandez MD [address] [place] [phone] Dermatophytosis of the Body (Primary Dx) Social History Tobacco Use Types Packs/Day Years Used Date Smoking Tobacco: Never Assessed Sex and Gender Information Value Date Recorded Sex Assigned at Not on file 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
--- OUTSIDE RECORDS SUMMARY | 2025-04-11 19:00 | XMS_ITS | Encounter Summary ---
Author Organization [facility] Address [address] [place] [address] Care Team Providers Care Marketing Operations Intern Name Role Phone Walter Juárez MD Primary Care Provider [phone] Encounter Details Date Type Department Care Team (Latest Contact Info) Description 12/12/2006 Outpatient [facility] Cardiology- [place] [address] [place] [address] Unruly Wilcox MD NO ADDRESS ON FILE Other and Unspecified Angina Pectoris (Primary Dx); Other Specified Cardiac Dysrhythmias Social History Tobacco Use Types Packs/Day Years Used Date Smoking Tobacco: Never Assessed Sex and Gender Information Value Date Recorded Sex Assigned at Not on file 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
--- OUTSIDE RECORDS SUMMARY | 2025-04-11 19:00 | XMS_ITS | Encounter Summary ---
Author Organization [facility] Address [address] [place] [address] Care Team Providers Care Bulb Grader Name Role Phone Walter Juárez MD Primary Care Provider [phone] Encounter Details Date Type Department Care Team (Latest Contact Info) Description 11/17/2006 Outpatient Historical [facility] Medicine [place] [address] [place] [phone] Harlan Anton, ANALYST FOOD AND BEVERAGE [address] [place] [address] Unspecified Chest Pain (Primary Dx) Social History Tobacco Use Types Packs/Day Years Used Date Smoking Tobacco: Never Assessed Sex and Gender Information Value Date Recorded Sex Assigned at Not on file Legal Sex Male 4: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
--- OUTSIDE RECORDS SUMMARY | 2025-04-11 19:01 | XMS_ITS | Encounter Summary ---
Author Organization [facility] Address [address] [place] [address] Care Team Providers Care Bogger Operator Name Role Phone Walter Juárez MD Primary Care Provider [phone] Encounter Details Date Type Department Care Team (Latest Contact Info) Description 04/16/2005 Outpatient Historical [facility] Medicine [place] [address] [place] [address] [phone] Harlan Antno, MORTGAGE SPECIALIST [address] [place] [address] DIARRHEA NOS (Primary Dx); CONSTIPATION NOS Social History Tobacco Use Types Packs/Day Years Used Date Smoking Tobacco: Never Assessed Sex and Gender Information Value Date Recorded Sex Assigned at Not on file 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
--- OUTSIDE RECORDS SUMMARY | 2025-04-11 19:01 | XMS_ITS | Encounter Summary ---
Author Organization [facility] Address [address] [place] [address] Care Team Providers Care Experimental Mechanic Name Role Phone Walter Juárez MD Primary Care Provider [phone] Encounter Details Date Type Department Care Team (Late st Contact Info) Description 05/21/2005 Outpatient [facility] Gastroenter[address] [place] [phone] MD [address] [place] [address] [place] [address] DIARRHEA NOS (Primary Dx) Social History Tobacco Use Types Packs/Day Years Used Date Smoking Tobacco: Never Assessed Sex and Gender Information Value Date Recorded Sex Assigned at Not on file 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
--- OUTSIDE RECORDS SUMMARY | 2025-04-11 19:01 | XMS_ITS | Encounter Summary ---
Author Organization [facility] Address [address] [place] [address] Care Team Providers Care Auto Battery Builder Name Role Phone Walter Juárez MD Primary Care Provider [phone] Encounter Details Date Type Department Care Team (Late st Contact Info) Description 05/21/2005 Outpatient Historical [facility] Endoscopy [place] [address] [place] [phone] MD [address] [place] [address] Disability Determination Services [place], [place] [address] CONSTIPATION NOS (Primary Dx) Social History Tobacco Use Types Packs/Day Years Used Date Smoking Tobacco: Never Assessed Sex and Gender Information Value Date Recorded Sex Assigned at Not on file 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
--- OUTSIDE RECORDS SUMMARY | 2025-04-11 19:01 | XMS_ITS | Encounter Summary ---
Author Organization [facility] Address [address] 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 Gender Identity Not on file Sexual Orientation Not on file documented as of this encounter Plan of Treatment Not on file documented as of this encounter Procedures Procedure Name Priority Date/Time Associated Diagnosis Comments OVA AND PARASITE SCREEN Routine 04/09/2005 7:41 PM CDT documented in this encounter Results * OVA AND PARASITE SCREEN (04/09/2005 7:41 PM CDT) OVA AND PARASITE SCREEN See Sep Report INTERFACE SYSTEM 04/09/2005 7:41 PM CDT Harlan Anton NP MICROBIOLOGY - GENERAL ORDERA BLES Final Result INTERFACE SYSTEM Refer to clinic/hospital department documented in this encounter Visit Diagnoses Not on filedocumented in this encounter Care Teams Adolescent Coordinator Relationship Specialty Start Date End Date Walter Juárez MD [address] [phone] PCP - General Family Practice 02/12/15 documented as of this encounter
--- OUTSIDE RECORDS SUMMARY | 2025-04-11 19:01 | XMS_ITS | Encounter Summary ---
Author Organization [facility] Address [address] [place] [address] Care Team Providers Care Particleboard Factory Worker Name Role Phone Walter Juárez MD Primary Care Provider [phone] Encounter Details Date Type Department Care Team (Late st Contact Info) Description 04/10/2005 Emergency [facility] Emergency Department [address] 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 Gender Identity Not on file Sexual Orientation Not on file documented as of this encounter Plan of Treatment Not on file documented as of this encounter Procedures Procedure Name Priority Date/Time Associated Diagnosis Comments CBC WITH DIFFERENTIAL Routine 04/10/2005 9:13 PM CDT LIPASE Routine 04/10/2005 9:13 PM CDT AMYLASE Routine 04/10/2005 9:13 PM CDT COMPREHENSIVE METABOLIC PANEL Routine 04/10/2005 9:13 PM CDT ICTOTEST Routine 04/10/2005 6:12 PM CDT GLUCOSE URINALYSIS, QUALITATIVE Routine 04/10/2005 6:12 PM CDT URINALYSIS MICROSCOPY ONLY Routine 04/10/2005 6:12 PM CDT URINALYSIS W/REFLEX MICROSCOPIC Routine 04/10/2005 6:12 PM CDT documented in this encounter Results * LIPASE (04/10/2005 9:13 PM CDT) LIPASE 268 23 - 300 IU/L INTERFACE SYSTEM 04/10/2005 9:13 PM CDT Jered Condon MD CHEMISTRY ORDERABLES Final Resu lt Performing Organization Address City/[facility]/ZIP Co de Phone Number INTERFACE SYSTEM Refer to clinic/hospital department * AMYLASE (04/10/2005 9:13 PM CDT) AMYLASE 74 30 - 120 IU/L INTERFACE SYSTEM 04/10/2005 9:13 PM CDT Jered Condon MD CHEMISTRY ORDERABLES Final Resu lt INTERFACE SYSTEM Refer to clinic/hospital department * (ABNORMAL) COMPREHENSIVE METABOLIC PANEL (04/10/2005 9:13 PM CDT) GLUCOSE 114(H) 70 - 110 mg/dL INTERFACE SYSTEM BUN 43(H) 9 - 20 mg/dL INTERFACE SYSTEM CREATININE 1.1 0.7 - 1.5 mg/dL INTERFACE SYSTEM SODIUM 133(L) 136 - 145 mEq/L INTERFACE SYSTEM POTASSIUM 4.1 3.5 - 5.0 mEq/L INTERFACE SYSTEM CO2 26 22 - 32 mmol/l INTERFACE SYSTEM CHLORIDE 102 95 - 110 mEq/L INTERFACE SYSTEM CALCIUM 7.9(L) 8.4 - 10.5 mg/dL INTERFACE SYSTEM ALKALINE PHOSPHATASE 51 38 - 126 IU/L INTERFACE SYSTEM TOTAL PROTEIN 5.6(L) 6.3 - 8.2 g/dL INTERFACE SYSTEM ALBUMIN 3.1(L) 3.5 - 5.0 g/dL INTERFACE SYSTEM AST 28 17 - 59 IU/L INTERFACE SYSTEM ALT 28 21 - 72 IU/L INTERFACE SYSTEM BILIRUBIN TOTAL 1.8(H) 0.2 - 1.4 mg/dL INTERFACE SYSTEM GLOBULIN (CALC) 2.5 2.4 - 3.9 g/dL INTERFACE SYSTEM ANION GAP 9 9 - 20 mEq/L INTERFACE SYSTEM ALBUMIN/GLOBULIN RATIO 1.2 1.0 - 2.3 INTERFACE SYSTEM OSMOLALITY, CALCULATED 287 275 - 295 mOsm/Kg INTERFACE SYSTEM 04/10/2005 9:13 PM CDT us Jered Condon MD CHEMISTRY ORDERABLES Final Resu lt INTERFACE SYSTEM Refer to clinic/hospital department * (ABNORMAL) CBC WITH DIFFERENTIAL (04/10/2005 9:13 PM CDT) WBC 7.0 4.8 - 10.8 K/ul INTERFACE SYSTEM RBC 3.94(L) 4.60 - 6.20 Mil/ul INTERFACE SYSTEM HEMOGLOBIN 13.1(L) 14.0 - 18.0 g/dL INTERFACE SYSTEM HEMATOCRIT 37.8(L) 41.0 - 53.0 % INTERFACE SYSTEM MCV 95.9 84.0 - 103.0 Fl INTERFACE SYSTEM MCH 33.2 27.0 - 34.0 pg INTERFACE SYSTEM MCHC 34.7 30.0 - 35.0 g/dL INTERFACE SYSTEM RDW 13.1 11.0 - 14.5 % INTERFACE SYSTEM PLATELETS 83(L) 140 - 440 K/ul INTERFACE SYSTEM MPV 9.0 8.9 - 12.8 Fl INTERFACE SYSTEM NEUTROPHILS 73.2 42.2 - 75.2 % INTERFACE SYSTEM LYMPHOCYTES 13.6(L) 24.0 - 44.0 % INTERFACE SYSTEM MONOCYTES 11.5(H) 2.0 - 10.0 % INTERFACE SYSTEM EOSINOPHILS 1.6 0.0 - 7.0 % INTERFACE SYSTEM BASOPHILS 0.1 0.0 - 1.0 % INTERFACE SYSTEM NEUTROPHIL ABSOLUTE 5.1 2.0 - 8.0 K/uL INTERFACE SYSTEM LYMPHOCYTE ABSOLUTE 1.0(L) 1.2 - 4.0 K/ul INTERFACE SYSTEM MONOCYTE ABSOLUTE 0.8(H) 0.1 - 0.6 K/ul INTERFACE SYSTEM EOSINOPHIL ABSOLUTE 0.1 0.0 - 0.7 K/ul INTERFACE SYSTEM BASOPHILS ABSOLUTE 0.0 0.0 - 0.2 K/ul INTERFACE SYSTEM PERIPHERAL BLOOD SMEAR REVIEW Automated Diff INTERFACE SYSTEM 04/10/2005 9:13 PM CDT Jered Condon MD HEMATOLOGY ORDERABLES Final Res ult Performing Organization Address [facility] Phone Number INTERFACE SYSTEM Refer to clinic/hospital department * (ABNORMAL) URINALYSIS (04/10/2005 6:12 PM CDT) COLOR UA Mallorie(A) Straw INTERFACE SYSTEM CLARITY UA SL CLOUDY Clear INTERFACE SYSTEM LEUKOCYTE ESTERASE UA NEGATIVE NEGATIVE INTERFACE SYSTEM NITRITE UA POSITIVE(A) NEGATIVE INTERFA CE SYSTEM PH UA 5.5 5.0 - 9.0 INTERFACE SYSTEM PROTEIN UA 30 mg/dl(A) NEGATIVE INTERFA CE SYSTEM Comment: As of 05 positive protein results obtained on routine urinalysis will not be confirmed by sulfosalicylic acid (SSA) precipitation. Current methodology for protein detection is highly sensitive for detection of albumin; therefore, confirmation is not necessary. GLUCOSE UA 100 mg/dl(A) NEGATIVE INTERFACE SYSTEM KETONES UA NEGATIVE NEGATIVE INTERFACE SYSTEM UROBILINOGEN UA 0.2 0.2 INTE RFACE SYSTEM BILIRUBIN UA . NEGATIVE INTERFA CE SYSTEM BLOOD UA NEGATIVE NEGATIVE INTERFACE SYSTEM SPECIFIC GRAVITY UA 1.030 1.005 - 1.030 INTERFACE SYSTEM MICRO EXAM . INTERFACE SYSTEM 04/10/2005 6:12 PM CDT Physician Sj Ed URINE ORDERABLES Final Result Performing Organization Address [facility] Phone Number INTERFACE SYSTEM Refer to clinic/hospital department * ICTOTEST (04/10/2005 6:12 PM CDT) ICTO Negative Negative INTERFACE SYSTEM 04/10/2005 6:12 PM CDT Physician Sj Ed URINE ORDERABLES Final Result Performing Organization Address City/[facility] Phone Number INTERFACE SYSTEM Refer to clinic/hospital department * (ABNORMAL) GLUCOSE URINALYSIS, QUALITATIVE (04/10/2005 6:12 PM CDT) GLUCOSE, URINE 100 mg/dl(A) Negative INTERFACE SYSTEM 04/10/2005 6:12 PM CDT Physician Sj Ed URINE ORDERABLES Final Result Performing Organization Address City/[facility] de Phone Number INTERFACE SYSTEM Refer to clinic/hospital department * (ABNORMAL) URINALYSIS MICROSCOPY ONLY (04/10/2005 6:12 PM CDT) WBC URINE 0-2 0 - 2 INTERFACE SYSTEM RBC UA 0-2 0 - 2 INTERFACE SYSTEM HYALINE CAST 3-5(A) 0 - 2 INTERFA CE SYSTEM BACTERIA UA Few(A) None Seen INTERFAC E SYSTEM 04/10/2005 6:12 PM CDT Physician Sj Ed URINE ORDERABLES Final Result Performing Organization Address [facility] Phone Number INTERFACE SYSTEM Refer to clinic/hospital department documented in this encounter Visit Diagnoses Diagnosis Abdominal pain, unspecified site- Primary documented in this encounter Care Teams Particleboard Factory Worker Relationship Specialty Start Date End Date Walter Juárez MD [address], [place] [address] PCP - General Family Practice 02/12/15 documented as of this encounter
--- OUTSIDE RECORDS SUMMARY | 2025-04-11 19:01 | XMS_ITS | Encounter Summary ---
Author Organization [facility] Address [address] [place] [address] Care Team Providers Care Emergency Response Coordinator Name Role Phone Walter Juárez MD Primary Care Provider [phone] Encounter Details Date Type Department Care Team (Latest Contact Info) Description 04/09/2005 Outpatient Historical [facility] Medicine [place] [address] [place] [phone] Harlan Anton, RETAIL SALES LEAD [address] [place] [address] ABDOMINAL PAIN UNSPEC SITE (Primary Dx) Social History Tobacco Use Types Packs/Day Years Used Date Smoking Tobacco: Never Assessed Sex and Gender Information Value Date Recorded Sex Assigned at Not on file 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
--- OUTSIDE RECORDS SUMMARY | 2025-04-11 19:01 | XMS_ITS | Encounter Summary ---
Author Organization [facility] Address [address] [place] [address] Care Team Providers Care [place]keag Operator Name Role Phone Walter Juárez MD Primary Care Provider [phone] Encounter Details Date Type Department Care Team (Latest Contact Info) Description 04/20/2005 Outpatient Historical [facility] Medicine [place] [address] [place] [phone] Harlan Anton, SHOE REPAIR COBBLER [address] [place] [address] Vaccine for influenza (Primary Dx) Social History Tobacco Use Types Packs/Day Years Used Date Smoking Tobacco: Never Assessed Sex and Gender Information Value Date Recorded Sex Assigned at Not on file 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
--- NOTE | 2025-04-11 19:12 | XRR_ITS ---
PROCEDURE INFORMATION: Exam: XR Chest Exam date and time: 04/11/2025 7:31 PM Age: 89 years old Clinical indication: Chest pain TECHNIQUE: Imaging protocol: Radiologic exam of the chest. Views: 1 view. COMPARISON: No relevant prior studies available. FINDINGS: Lungs: Hazy opacification in the bilateral lung apices. No dense consolidation. Nodular opacity in the left lung base with the appearance of spiculated margins. Pleural spaces: Trace left pleural effusion. No pneumothorax. Heart/Mediastinum: Unremarkable. No cardiomegaly. Bones/joints: Unremarkable. XR/XR chest 1V portable [id number] IMPRESSION: 1. Hazy opacities in the bilateral lung apices may represent superimposition of structures, atelectasis, scarring or less likely infectious/inflammatory process. 2. Nodular opacity in the left lung base with apparent spiculated margins. This may represent underlying pulmonary nodule versus atelectasis. Recommend chest CT to exclude underlying pulmonary nodule.
--- NOTE | 2025-04-11 19:12 | ECG_ITS ---
[facility] Pat Name: Cisco Guthrie Department: Room: Gender: Male Retort Setter: : 1935 Requested By: Kathleen Flores Order Number: [id number] Anh MD: Inocencio Infante M.D. Measurements Intervals [place] Rate: 67 P: 27 WI: 208 QRS: -46 QRSD: 110 T: 64 QT: 394 QTc: 417 Interpretive Statements SINUS RHYTHM INCOMPLETE RIGHT BUNDLE BRANCH BLOCK [90+ ms QRS DURATION, TERMINAL R IN V1/V2, 40+ ms S IN I/aVL/V4/V5/V6] LEFT ANTERIOR FASCICULAR BLOCK [QRS AXIS <= -45, QR IN I, RS IN II] No previous ECG available for comparison Electronically Signed On 04-12-2025 15:27:00 CDT by Inocencio Infante M.D. [email or web address]
[2025-04-11 19:24] LABS: Hematocrit 34.3 % (37-53); Hemoglobin 11.70 g/dL (11.27-16.99); Mean Corpuscular HGB Conc 34.1 g/dL (30-55); Mean Corpuscular Hemoglobin 32.6 pg (27-33); Mean Corpuscular Volume 95.5 fl (82-101); Nucleated Red Blood Cells % 0 %; Platelet Count 142 10^3/cmm (157-399); Red Blood Count 3.59 10^6/uL (3.85-5.65); White Blood Count 6.63 10^3/uL (3.29-11.43)
[2025-04-11 19:34] LABS: Troponin(5th) Baseline 24 ng/L (0-15)
[2025-04-11 19:44] LABS: Alanine Aminotransferase 15 U/L (0-41); Albumin Level 3.9 g/dL (3.5-5.2); Alkaline Phosphatase 46 U/L (40-130); Anion Gap 13.9 (5-19); Aspartate Amino Transferase 19 U/L (0-40); Blood Urea Nitrogen 19 mg/dL (8-23); Calcium 8.4 mg/dL (8.5-10.5); Carbon Dioxide 26 mmol/L (22-29); Chloride 99 mmol/L (98-107); Creatinine Clr Calc Pharmacy 57.8475; Globulin 1.8 g/dL (1.3-4.6); Glucose 189 mg/dL (65-115); NT Pro B Type Natriuretic Pept 300 pg/mL (0-450); Osmolality Calculated 287 mOsm/kg (285-295); Potassium 3.9 mmol/L (3.5-5.1); Sodium 135 mmol/L (136-145); Total Protein 5.7 g/dL (6.6-8.7)
[2025-04-11 20:58] LABS: Troponin 5 2HR 24.24 ng/L (0-15); Troponin 5 2HR Delta 0.24 ABS# (0-10)
--- NOTE | 2025-04-11 22:06 | ECG_ITS ---
[facility] Test Date: 2025-04-11 Pat Name: Cisco Guthrie Department: Room: 112 Gender: Male Senior User Experience Architect: : 1935 Requested By: Kathleen Flores Order Number: [id number] Anh MD: Inocencio Infante M.D. Measurements Intervals [place] Rate: 78 P: 59 NM: 207 QRS: -38 QRSD: 114 T: 79 QT: 380 QTc: 435 Interpretive Statements SINUS RHYTHM POSSIBLE LEFT ATRIAL ENLARGEMENT [-0.1mV P-WAVE IN V1/V2] LEFT AXIS DEVIATION [QRS AXIS < -30] INCOMPLETE RIGHT BUNDLE BRANCH BLOCK [90+ ms QRS DURATION, TERMINAL R IN V1/V2, 40+ ms S IN I/aVL/V4/V5/V6] NONSPECIFIC T-WAVE ABNORMALITY Compared to ECG 04/11/2025 18:32:13 Ventricular premature complex(es) no longer present T-wave abnormality still present Electronically Signed On 04-12-2025 15:28:14 CDT by Inocencio Infante M.D. [email or web address] [id number]
--- NOTE | 2025-04-11 23:53 | PM.HP ---
Providers/Chief Complaint Admitting Physician: Vicky Murguia MD--- seen and evaluated before 12 midnight Primary Care Provider: Tomás Juárez DO Chief Complaint: chest pain History of Present Illness Cisco Guthrie is a 89 year old male with medical history significant for coronary artery disease. Patient had had 3 stents and then had 1 stent that they could not open up at the last cardiac catheterization about 2 to 3 years ago. Patient at this time presented with chest pains and he took 2 nitro sublingual at home and the chest pain went away. Patient proceeded to come to the emergency room to further evaluation In the emergency room EKG did not look ischemic troponin 1st and 2nd and 6-hour troponin were fairly unremarkable. Patient had been made n.p.o. and I ordered a stress test for patient to follow-up with this. Emergency room told me they spoke with cardiology Dr. Haskins regarding the patient. Patient did not have any recurrent chest pain throughout the stay in the emergency room and coming down to stepdown unit room 111 -2. Follow-up on the echocardiogram and stress test and also cardiology recommendation. Case have been fully discussed with the patient at the time of my evaluation Review of Systems Narrative: System review upon 10 organ reviewed we are only remarkable for cardiovascular significant for chest pains. Otherwise unremarkable Medications/Allergies Home Medications ?Medication ?Instructions ?Recorded ?Confirmed ?Last Taken ?Type albuterol sulfate 90 mcg/actuation 1 - 2 puff inhalation Q6H PRN SOB 04/11/25 04/11/25 Unknown History aerosol inhaler atorvastatin 40 mg tablet 40 mg PO BEDTIME 04/11/25 04/11/25 04/10/25 History clopidogrel 75 mg tablet 75 mg PO DAILY 04/11/25 04/11/25 04/11/25 History doxazosin 8 mg tablet 8 mg PO DAILY 04/11/25 04/11/25 04/11/25 History escitalopram oxalate 10 mg tablet 10 mg PO DAILY 04/11/25 04/11/25 04/11/25 History glimepiride 2 mg tablet 2 mg PO DAILY 04/11/25 04/11/25 04/11/25 History hydrocodone 10 mg-acetaminophen See Rx Instructions .Route 04/11/25 04/11/25 Unknown History 325 mg tablet .COMPLEX PRN Pain, Moderate insulin glargine 100 unit/mL (3 10 unit SUBCUT DAILY 04/11/25 04/11/25 04/11/25 History mL) subcutaneous pen (Lantus Solostar U-100 Insulin) isosorbide mononitrate 30 mg 30 mg PO DAILY 04/11/25 04/11/25 04/11/25 History tablet,extended release 24 hr levothyroxine 75 mcg tablet 75 mcg PO QAM 04/11/25 04/11/25 04/11/25 History (Synthroid) losartan 25 mg tablet 25 mg PO DAILY 04/11/25 04/11/25 04/11/25 History nitroglycerin 0.4 mg sublingual 0.4 mg sublingual Q5MIN 04/11/25 04/11/25 04/11/25 17:00 History tablet pantoprazole 40 mg tablet,delayed 40 mg PO DAILY 04/11/25 04/11/25 04/11/25 History release sitagliptin phosphate 50 mg tablet 50 mg PO DAILY 04/11/25 04/11/25 04/11/25 History (Januvia) Allergies Allergy/AdvReac Type Severity Reaction Status Date / Time metformin Allergy ADR-Diarrhe Verified 04/11/25 18:42 a Vitals/I&O/Wt Last Vital Signs Temp 97.0 F L 04/11/25 21:42 Pulse 97 04/11/25 21:42 Resp 22 H 04/11/25 21:42 BP 139/82 04/11/25 21:42 Pulse Ox 98 04/11/25 21:42 O2 Del Method Room Air 04/11/25 21:42 Weight last 48 hrs Weight 77 kg Weight 74.843 kg Physical Exam Narrative: Generally patient looks well with the and daughter at the bedside and very conversant HEENT normocephalic atraumatic neck neck is supple cardiovascular heart rate is regular lungs are clear abdomen soft nontender nondistended unremarkable extremities are intact no edema has good pulses neurology has no focality lab studies lab studies reviewed and noted Data 04/12/25 01:10 04/12/25 01:10 A&P Assessment and plan 1. Coronary artery disease: 2. Chest pain: Plan: #1 Chest pain with history of coronary artery disease - Status post 3 stents placement at 3 different times - Status post an attempt to open a fourth vessel and that did not work - Troponin is negative EKG was unremarkable, I placed patient on stress test - Must continue to monitor and optimize - Follow-up with echocardiogram and cardiology recommendation #2 GI and DVT prophylaxis in place PDMP PDMP Reviewed: Last Reviewed 04/12/25 09:02 by Vicky Murguia MD Attestations Medical Necessity Statement*: This is an observation stay allow 23 hours staying to rule out new coronary artery disease on this patient for care Coding Level of Care Code Acute Code for Chg Fwd Diagnoses Coronary artery disease I25.10 Chest pain R07.9 Time Spent (min) 60
[2025-04-12] VITALS (15 sets, daily range): BP systolic 118–179; BP diastolic 70–85; PULSE 68–92; RESP 13–21; TEMP 36.3–36.9; O2SAT 92–98; BMI 34.5
--- NOTE | 2025-04-12 01:11 | USCV_ITS ---
Cisco Guthrie Age: 89 Gender: M : 1935 Exam Date: 04/12/2025 02:18 Ordering Phys: Vicky Murguia MD Technologist: FRAN Exam Location: [facility] Indication: chest pain, history of CAD s/p PCI BP: 129 / 75 HR: 77 Rhythm: Sinus Technical Quality: Adequate MEASUREMENTS (Male / Female) Normal Values 2D ECHO LV Diastolic Diameter PLAX 3.5 cm 4.2 - 5.9 / 3.9 - 5.3 cm IVS Diastolic Thickness 1.5 cm 0.6 - 1.0 / 0.6 - 0.9 cm IVS Systolic Thickness 1.7 cm LVPW Diastolic Thickness 1.5 cm 0.6 - 1.0 / 0.6 - 0.9 cm LVPW Systolic Thickness 1.4 cm LVOT Diameter 2.2 cm LV Ejection Fraction 2D Teich 46.5 % LV Ejection Fraction MOD 4C 65.0 % LV Ejection Fraction MOD 2C 60.0 % LV Ejection Fraction 2C AL 65.2 % LA Diameter 2.4 cm Aorta at Sinotubular Diameter 2.2 cm IVC Diameter 1.1 cm M-MODE LA Ao Ratio MM 1.0 AV Cusp Separation MM 1.7 cm DOPPLER AV Peak Velocity 148.0 cm/s LVOT Peak Velocity 85.0 cm/s AV Area Cont Eq vti 2.5 cm squared AV Area Cont Eq pk 2.2 cm squared MV Peak Velocity 147.0 cm/s MV Area PHT 2.5 cm squared Mitral E to A Ratio 0.6 TV Peak E Velocity 53.0 cm/s PV Peak Velocity 72.0 cm/s FINDINGS Left Ventricle Normal LV size and ejection fraction of 60%. Mild calcific left-ventricular hypertrophy.no regional wall motion abnormalities. Grade I/IV diastolic dysfunction (abnormal relaxation filling pattern), normal to mildly elevated filling pressures. Right Ventricle Normal right ventricular size and systolic function. Right Atrium Normal right atrial size. Left Atrium Mildly increased left atrial size. IA Septum Normal interatrial septum. Mitral Valve Moderate prolapse of the anterior mitral leaflet. Moderate eccentric mitral regurgitation. Moderate mitral annular calcification. Thickened mitral valve. Aortic Valve Thickened aortic valve. Tricuspid Valve Trace tricuspid valve regurgitation. Pulmonic Valve Trace pulmonary valve regurgitation. Pericardium No pericardial effusion. Aorta Normal aortic annulus size. IVC Normal IVC dimension with <50% respiratory change of the inferior vena cava. CONCLUSIONS Normal LV size and ejection fraction of 60%. Mild calcific left-ventricular hypertrophy.no regional wall motion abnormalities. Grade I/IV diastolic dysfunction (abnormal relaxation filling pattern), normal to mildly elevated filling pressures. Mildly increased left atrial size. 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 Moderate eccentric mitral regurgitation. Moderate mitral annular calcification. Thickened mitral valve. Trace tricuspid valve regurgitation. Thickened aortic valve. Trace pulmonary valve regurgitation. There is no pericardial effusion. There are no intracardiac masses. No similar previous studies are available for comparison Dr Inocencio Infante MD FAC (Electronically Signed) Final Date: 12 April 2025 13:57 S
--- NOTE | 2025-04-12 01:11 | ECG_ITS ---
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 The perfusion scan will be documented separately. DATA: Baseline heart rate was 83 beats per minute. Baseline blood pressure was 130/73 millimeters of mercury. Target heart rate was 132. Maximum heart rate achieved was 103. which was 78 % of the predicted target heart rate. Maximum blood pressure was 148/78 millimeters of mercury. The reason for ending the test was completion of the protocol. The patient did not experience any symptoms. ELECTROCARDIOGRAM: BASELINE: Sinus rhythm. Normal axis. Otherwise, no ST-T changes suggestive of ischemia noted. No arrhythmia noted. EXERCISE: After Lexiscan injection, no ST-T changes suggestive of ischemic noted. No arrhythmia noted. Multiple PVCs noted. CONCLUSION: Please note due to baseline abnormality of the EKG specificity and sensitivity of the EKG portion of LexiScan MIBI stress test will be low 1. EKG not suggestive of ischemia 2. Lexiscan injection unremarkable. 3. Perfusion scan will be documented separately. Electronically Signed On 04-24-2025 20:56:43 BANKING [place] by TATYANA RIOS [id number] [id number]
--- NOTE | 2025-04-12 01:16 | NMCV_ITS ---
NM kirk perf SPECT r/s* [id number] Cisco Guthrie Age: 89 Gender: M : 1935 Exam Date: 04/12/2025 07:33 Ordering Phys: Vicky Murguia MD Technologist: FAVIAN Barry Exam Location: [facility] Indications: cp STRESS TEST Please see separate stress test report in [facility] for full findings IMAGE PROTOCOL Rest/Stress 1 Lexiscan Day Radiopharmaceutical Dose (mCi) Administration Site Administered by Rest: Tc-99m 10.9 IV Nicki Cuellar, [employer] SYSTEMS ROBOTICIST Sestamibi Stress:Tc-99m 32.6 IV Nicki Braygle, [employer]MAN[employer] SYSTEMS ROBOTICIST Sestamibi Rest: 12-Apr-2025 60 Discovery 630 Stress: 12-Apr-2025 30 Discovery 630 0.4mg Lexiscan. Images obtained in supine and prone position. 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 FUNCTIONAL RESULTS (calculated via Gated SPECT) Stress Image LV EF (%): 76 Stress EDV (mL):78 TID: 0.9 Stress ESV (mL):19 FUNCTIONAL FINDINGS: Inferior wall hypokinesis IMPRESSIONS Large area of old myocardial infarction versus scarring surrounded by mild area of kelli-infarct ischemia noted in basal distal inferior and inferolateral wall in the territory RCA. Domitila Haskins MD (Electronically Signed) Final Date: 12 April 2025 11:27 S
--- NOTE | 2025-04-12 01:18 | ECG_ITS ---
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 Measurements Intervals [place] Rate: 72 P: 57 UT: 205 QRS: -46 QRSD: 117 T: 74 QT: 396 QTc: 434 Interpretive Statements SINUS RHYTHM INCOMPLETE RIGHT BUNDLE BRANCH BLOCK [90+ ms QRS DURATION, TERMINAL R IN V1/V2, 40+ ms S IN I/aVL/V4/V5/V6] LEFT ANTERIOR FASCICULAR BLOCK [QRS AXIS <= -45, QR IN I, RS IN II] NONSPECIFIC T-WAVE ABNORMALITY Compared to ECG 04/11/2025 22:06:55 Left anterior fascicular block now present Left-axis deviation no longer present T-wave abnormality still present Electronically Signed On 04-12-2025 15:28:03 CDT by Inocencio Infante M.D. [email or web address]
[2025-04-12 01:47] LABS: Hematocrit 36.2 % (37-53); Hemoglobin 12.40 g/dL (11.27-16.99); Mean Corpuscular HGB Conc 34.3 g/dL (30-55); Mean Corpuscular Hemoglobin 32.5 pg (27-33); Mean Corpuscular Volume 95.0 fl (82-101); Nucleated Red Blood Cells % 0 %; Platelet Count 152 10^3/cmm (157-399); Red Blood Count 3.81 10^6/uL (3.85-5.65); White Blood Count 7.34 10^3/uL (3.29-11.43)
[2025-04-12] MEDS: heparin 5,000 unit/mL INJ 1 mL 5000 UNIT SUBCUT ×2 (01:57→12:52)
[2025-04-12 02:06] LABS: Troponin 5 6HR 34.86 ng/L (0-15); Troponin 5 6HR Delta 10.86 ng/L (0-12)
[2025-04-12 02:09] LABS: Alanine Aminotransferase 16 U/L (0-41); Albumin Level 4.3 g/dL (3.5-5.2); Alkaline Phosphatase 47 U/L (40-130); Anion Gap 14.3 (5-19); Aspartate Amino Transferase 19 U/L (0-40); Blood Urea Nitrogen 18 mg/dL (8-23); Calcium 9.4 mg/dL (8.5-10.5); Carbon Dioxide 27 mmol/L (22-29); Chloride 97 mmol/L (98-107); Creatinine Clr Calc Pharmacy 58.6264; Globulin 1.6 g/dL (1.3-4.6); Glucose 189 mg/dL (65-115); Magnesium 1.9 mg/dL (1.7-2.3); Osmolality Calculated 285 mOsm/kg (285-295); Potassium 4.3 mmol/L (3.5-5.1); Sodium 134 mmol/L (136-145); Total Protein 5.9 g/dL (6.6-8.7)
[2025-04-12 03:41] LABS: Estmated Average Glucose 177; Hemoglobin A1C 7.8 % (4.0-6.0)
--- OUTSIDE RECORDS SUMMARY | 2025-04-12 07:29 | XMS_ITS | Encounter Summary ---
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 Gender Identity Not on file Sexual Orientation Not on file documented as of this encounter Plan of Treatment Not on file documented as of this encounter Procedures Procedure Name Priority Date/Time Associated Diagnosis Comments NM MYOCARD PERF IMAG SPECT SINGL Routine 08/16/2007 8:29 AM LIFE INSURANCE SALES AGENT documented in this encounter Results * NM MYOCARD PERF IMAG SPECT SINGL (08/16/2007 8:29 AM LIFE INSURANCE SALES AGENT) 08/16/2007 8:29 AM LIFE INSURANCE SALES AGENT Narrative INTERFACE SYSTEM - 08/16/2007 8:29 AM LIFE INSURANCE SALES AGENT MYOVIEW PERFUSION SCAN: Date of Procedure: 11/21/2006. [...] NM ORDERABLES Final Result Performing Organization Address City/State/[facility] Co de Phone Number INTERFACE SYSTEM Refer to clinic/hospital department documented in this encounter Visit Diagnoses Not on filedocumented in this encounter Care Teams Breakdown Man Relationship Specialty Start Date End Date Walter Juárez MD [address] [place] [phone] PCP - General Family Practice 02/12/15 documented as of this encounter
--- OUTSIDE RECORDS SUMMARY | 2025-04-12 07:29 | XMS_ITS | Encounter Summary ---
Author Organization [facility] Address [address] [place] [address] Care Team Providers Care Quill Cleaning Machine Operator Name Role Phone Walter Juárez MD Primary Care Provider [phone] Encounter Details Date Type Department Care Team (Latest Contact Info) Description 06/15/[address] [facility] Cardiac Automatic Cigar Wrapper Tender [address] [place] [address] Honorio Spicer MD [address] [place], [place] [address]y [place] [address] [place] [address] Coronary Atherosclerosis of [place] Coronary Artery Social History Tobacco Use Types Packs/Day Years Used Date Smoking Tobacco: Never Assessed Sex and Gender Information Value Date Recorded Sex Assigned at Not on file Legal Sex Male 4:00 AM FILTER TENDER Gender Identity Not on file Sexual Orientation Not on file documented as of this encounter Plan of Treatment Not on file documented as of this encounter Procedures Procedure Name Priority Date/Time Associated Diagnosis Comments PT AND APTT Routine 06/16/2007 9:51 AM FILTER TENDER CBC WITHOUT DIFFERENTIAL Routine 06/16/2007 9:51 AM FILTER TENDER BASIC METABOLIC PANEL Routine 06/16/2007 9:51 AM FILTER TENDER documented in this encounter Results * (ABNORMAL) BASIC METABOLIC PANEL (06/16/2007 9:51 AM FILTER TENDER) [facility] GLUCOSE 113(H) 70 - 110 mg/dL INTERFACE [...] 295 mOsm/Kg INTERFACE SYSTEM 06/16/2007 9:51 AM FILTER TENDER Honorio Spicer MD CHEMISTRY ORDERABLES Edited Performing Organization Address [facility] Phone Number INTERFACE SYSTEM Refer to clinic/hospital department * PT AND APTT (06/16/2007 9:51 AM FILTER TENDER) Pathologist [facility] PROTIME 15.3 12.8 - 15.8 Secs INTERFACE SYSTEM INR 1.1 INTERFACE SYSTEM PTT 25.8 21.6 - 35.6 Secs INTERFACE SYSTEM 06/16/2007 9:51 AM FILTER TENDER Honorio Spicer MD HEMATOLOGY ORDERABLES Edited Performing Organization Address [facility] Phone Number INTERFACE SYSTEM Refer to clinic/hospital department * (ABNORMAL) CBC WITHOUT DIFFERENTIAL (06/16/2007 9:51 AM FILTER TENDER) Pathologist [facility] WBC 3.3(L) 4.8 - 10.8 K/ul INTERFACE [...] 0.2 K/ul INTERFACE SYSTEM 06/16/2007 9:51 AM FILTER TENDER us Honorio Spicer MD HEMATOLOGY ORDERABLES Edited INTERFACE SYSTEM Refer to clinic/hospital department documented in this encounter Visit Diagnoses Diagnosis Coronary atherosclerosis of [place] coronary artery documented in this encounter Care Teams Quill Cleaning Machine Operator Relationship Specialty Start Date End Date Walter Juárez MD [address], [place] [address] PCP - General Family Practice 02/12/15 documented as of this encounter
--- OUTSIDE RECORDS SUMMARY | 2025-04-12 07:29 | XMS_ITS | Encounter Summary ---
Author Organization [facility] Address [address] [place] [address] Care Team Providers Care Sonar Watchstander Name Role Phone Walter Juárez MD Primary Care Provider [phone] Encounter Details Date Type Department Care Team (Late st Contact Info) Description 06/27/2007 Outpatient Historical [facility] Medicine [place] [address] [place] [phone] Oswaldo Hernandez MD [address] [place] [phone] Social History Tobacco Use Types Packs/Day Years Used Date Smoking Tobacco: Never Assessed Sex and Gender Information Value Date Recorded Sex Assigned at Not on file Legal Sex Male 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
--- OUTSIDE RECORDS SUMMARY | 2025-04-12 07:30 | XMS_ITS | Encounter Summary ---
Author Organization [facility] Address [address] [place] [address] Care Team Providers Care Paver Name Role Phone Walter Juárez MD Primary Care Provider [phone] Encounter Details Date Type Department Care Team (Latest Contact Info) Description 06/28/2005 Outpatient Historical [facility] Medicine [place] [address] [place] [phone] Harlan Anton, CABIN CLEANER [address] [place], [place] [phone] DIABETES MELLITUS TYPE II-UNCOMPL (CMS/HCC) (Primary Dx); ANEMIA NOS; AFTERCARE NURSING HOME USE MEDICATN Social History Tobacco Use Types Packs/Day Years Used Date Smoking Tobacco: Never Assessed Sex and Gender Information Value Date Recorded Sex Assigned at Not on file 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
--- OUTSIDE RECORDS SUMMARY | 2025-04-12 07:30 | XMS_ITS | Encounter Summary ---
Author Organization [facility] Address [address] [place] [address] Care Team Providers Care Fire Controlman Name Role Phone Walter Juárez MD Primary Care Provider Encounter Details Date Type Department Care Team (Latest Contact Info) Description 08/31/2005 Outpatient Historical [facility] Medicine [place] [address] [place] [phone] Va Nguyen MD [address] [place] [phone] DM w/o Complication Type II (CMS/HCC) (Primary Dx) Social History Tobacco Use Types Packs/Day Years Used Date Smoking Tobacco: Never Assessed Sex and Gender Information Value Date Recorded Sex Assigned at Not on file Legal Sex Male 4:00 AM 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
--- OUTSIDE RECORDS SUMMARY | 2025-04-12 07:30 | XMS_ITS | Clinical Summary ---
Author Organization [facility] de Address [address] [place] [address] Phone Care Team Providers Care Medical Equipment Technician Name Role Phone Walter Juárez MD Primary Care Provider [phone] Allergies Active Allergy Reactions Criticality Noted Date Comments Hymenoptera Allergenic Extract Anaphylaxis High 01/19 Metformin Diarrhea Low 12/09/2017 Medications aspirin (SHARMILA) 81 mg Oral Tab Take 81 mg by mouth daily. Active omega-3 fatty qzpfy-nux-src (MEGARED YHMKZ-YFNUS-2) 300 mg Capsule Take 1 Cap by mouth daily. Active IRON/VITAMIN B COMPLEX (GERITOL ORAL) Take by mouth daily. 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 Gender Identity Not on file Sexual Orientation [...] history exists Medical Devices Implanted Type Area Patient Appointment Coordinator Device Identifier Shelf Expiration Date Model / Serial / Lot Promus Premier 3x12 Implanted:2014 (Quantity not on file) Stent / / [id number] Procedures Procedure Name Priority Date/Time Associated Diagnosis Comments MICROALBUMIN/CREATI NINE RATIO, RANDOM UR Routine 11/04/2020 11:43 AM CDT Type 2 diabetes mellitus with hyperglycemia, without long-term current use of insulin ([facility]) LIPID PANEL Routine 11/04/2020 11:43 AM CDT Hyperlipidemia, unspecified hyperlipidemia type HEMOGLOBIN A1C Routine 11/04/2020 11:43 AM CDT Type 2 diabetes mellitus with hyperglycemia, without long-term current use of insulin ([facility]) DIABETES EYE EXAM Routine 11/02/2019 from Last 3 Months or Most Recently Relevant to Health Maintenance Results * MICROALBUMIN/CREATININE RATIO, RANDOM UR (11/04/2020 11:43 AM CDT) MICROALBUMIN, URINE <1.2 No Reference Range mg/dL 11/04/2020 8:53 PM CDT [facility] CREATININE, URINE 152.9 40.0 - 278.0 mg/dL 11/04/2020 8:53 PM CDT [facility] Comment:Reference Range vari es with fluid intake and diet. MICROALBUMIN/C REAT RATIO, UR <7.8 <17.0 mg/g 11/04/2020 8:53 PM CDT [facility] Urine URINE SPECIMEN OBTAINED BY CLEAN CATCH PROCEDURE / Unknown Collection / Unknown 11/04/2020 11:43 AM CDT 11/04/2020 8:01 PM CDT [facility] - 11/04/2020 8:53 PM CDT Condition Microalbumin/Creat ratio Normal Males <17 Normal Females <25 Microalbuminuria Males 17-299 Microalbuminuria Females 25-299 Overt proteinuria >=300 us Padmini Carr SCHOOL BUS ATTENDANT URINE ORDERABLES Final Result [facility] CLIA# [id number] [address] [place] [address] * (ABNORMAL) HEMOGLOBIN A1C (11/04/2020 11:43 AM CDT) HEMOGLOBIN A1C 6.4(H) See Comment % 11/04/2020 8:35 PM CDT [facility] EST. AVG GLUCOSE, A1C 137 mg/dL 11/04/2020 8:35 PM CDT [facility] Blood Venipuncture / Unknown 11/04/2020 11:43 AM CDT 11/04/2020 8:04 PM CDT Narrative [facility] - 11/04/2020 8:35 PM CDT HGB A1C INTERPRETATION NORMAL: <5.7% PRE-DIABETES: 5.7 - 6.4% DIABETES: 6.5% OR GREATER Falsely low A1C measurements can occur when: 1. Anemia and/or hemolytic anemia is present. 2. Hemoglobin variants present. 3. Renal failure. 4. Transfusion of blood product in the last 120 days. We recommend ordering a fructosamine test([id number]) to more accurately assess glycemic status if any of the above conditions are present. us Padmini Carr SCHOOL BUS ATTENDANT CHEMISTRY ORDERABLES Final Re sult [facility] CLIA# [id number] [address] [place] [address] * (ABNORMAL) LIPID PANEL (11/04/2020 11:43 AM CDT) CHOLESTEROL 199 <200 mg/dL 11/04/2020 9:11 PM CDT [facility] TRIGLYCERIDE 150(H) <150 mg/dL 11/04/2020 9:11 PM CDT [facility] HDL 50 40 - 59 mg/dL 11/04/2020 9:11 PM CDT [facility] LDL CALCULATED 119(H) <100 mg/dL 11/04/2020 9:11 PM CDT [facility] NON-HDL CHOLESTEROL 149(H) <130 mg/dL 11/04/2020 9:11 PM T [facility] Blood Venipuncture / Unknown 11/04/2020 11:43 AM CDT 11/04/2020 8:04 PM CDT Narrative [facility] - 11/04/2020 9:11 PM [...] for Lipid Panels (NCEP/AMA) . Padmini Carr SCHOOL BUS ATTENDANT CHEMISTRY ORDERABLES Final Re sult [facility] DUMONT# [id number] [place] [address] * DIABETES EYE EXAM (11/02/2019) us Abstract Spg Provider HEALTH MAINTENANCE Final R esult from Last 3 Months or Most Recently Relevant to Health Maintenance Insurance MEDICARE PART A AND B [employer] Advance Directives For more information, please contact: [phone] * Full Code (Latest Code Status on File) Date Activated Date Inactivated Comments 04/02/2015 10:41 PM 04/03/2015 3:37 PM * Full Code Date Activated Date Inactivated Comments 03/28/2015 11:39 AM 03/29/2015 12:58 PM Care Teams Medical Equipment Technician Relationship Specialty Start Date End Date Walter Juárez MD [address] [place] [address] PCP - General Family Practice 8/26/15
--- OUTSIDE RECORDS SUMMARY | 2025-04-12 07:30 | XMS_ITS | Encounter Summary ---
Author Organization [facility] Address [address] [place] [address] Care Team Providers Care Retail Warehouse Supervisor Name Role Phone Walter Juárez MD Primary Care Provider [phone] Encounter Details Date Type Department Care Team (Latest Contact Info) Description 05/28/2005 Outpatient Historical [facility] [address] [place] [phone] Harlan Anton, MAINSTREAMING FACILITATOR [address] [place], [place] [phone] DIABETES MELLITUS TYPE II-UNCOMPL (CMS/[facility]) (Primary Dx); DIARRHEA NOS; OSTEOARTHROS NOS-OTHER SITE; CELLULITIS NOS Social History Tobacco Use Types Packs/Day Years Used Date Smoking Tobacco: Never Assessed Sex and Gender Information Value Date Recorded Sex Assigned at Not on file 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
--- OUTSIDE RECORDS SUMMARY | 2025-04-12 07:30 | XMS_ITS | Encounter Summary ---
Author Organization [facility] Address [address] [place] [address] Care Team Providers Care Drywall Sander Name Role Phone Walter Juárez MD Primary Care Provider [phone] Encounter Details Date Type Department Care Team (Latest Contact Info) Description 12/06/2005 Outpatient Historical [facility] [address] [place] [phone] Harlan Anton, BAKERY DELIVERER [address] [place] [address] DM w/o Complication Type II (CMS/HCC) (Primary Dx) Social History Tobacco Use Types Packs/Day Years Used Date Smoking Tobacco: Never Assessed Sex and Gender Information Value Date Recorded Sex Assigned at Not on file 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
--- OUTSIDE RECORDS SUMMARY | 2025-04-12 07:30 | XMS_ITS | Encounter Summary ---
Author Organization [facility] Address 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 [facility] Drapery Cutter: Sue Forde documented in this encounter Plan of Treatment Upcoming Encounters Date Type Department Care Team (Late st Contact Info) Description 05/01/2025 1:40 PM HOTEL SERVICE MANAGER Office Visit [facility] [address] [place] [address] Ralph Rodriguez PA [address] [place] [address] 05/14/2025 10:20 AM HOTEL SERVICE MANAGER Office Visit [facility] Medicine [place] [address] [place] [phone] Leatha Gonzalez, ROLL ON WORKER [address] [place] [phone] 01/21/2026 1:40 PM CDT Office Visit [facility] [address] [place] [address] Tory Vargas, ROLL ON WORKER [address] [place] [address] 03/13/2026 9:30 AM CDT Office Visit [facility] [place] [address] [facility] [address] [place] [address] Walter Orlando NP [address] [place] [address] documented as of this encounter Visit Diagnoses Not on filedocumented in this encounter Care Teams Commissioning Engineer Relationship Specialty Start Date End Date Tomás Juárez DO [address] [place] [address] PCP - General Family Practice 06/05/21 documented as of this encounter
--- OUTSIDE RECORDS SUMMARY | 2025-04-12 07:30 | XMS_ITS | Encounter Summary ---
Author Organization [facility] Address [address] [place] [address] Care Team Providers Care Promotion Officer Name Role Phone Tomás Juárez DO Primary Care Provider [phone] Reason for Visit * Reason Comments Clinical Consult Before Scheduling Encounter Details Date Type Department Care Team (Late st Contact Info) Description 10/03/2024 Telephone [facility] Medicine [place] [address] [phone] Tomás Juárez DO [address] [phone] Clinical Consult Before Scheduling Social [...] on file Legal Sex Male 4:07 PM MANAGER SUPPORT SERVICES Gender Identity Not on file Sexual Orientation [...] this pain before. Home therapies tried: Taking Thornton every four hours and tramadol with no relief INFORMATIONAL MESSAGE ONLY. Not able to schedule appointment within the recommended timeframe. Patient informed of additional [facility] Resources and expresses intent to utilize [facility] ED in the area. * Telephone Encounter - Shanae Ricks - 10/03/2024 8:43 AM CDT Copied from [facility] #[id number]. Topic: Symptomatic Care >> Oct 03, 2024 8:40 AM Shanae Aguilar wrote: Has this patient seen any provider (current or former) at the requested clinic in the past? Yes, Select the appropriate age range and symptom Patient has symptoms and is seeking care. Caller Name: Lilian Harris on [facility] Callback Number: Telephone Information: Call Notes: States he is having pain and rates it a 10 Age Range/Symptom: Adult 18+ - Transferred to N line and answered call. documented in this encounter Plan of Treatment Upcoming Encounters Date Type Department Care Team (Late st Contact Info) Description 05/01/2025 1:40 PM MANAGER SUPPORT SERVICES Office Visit [facility] [address] [place] [address] Ralph Rodriguez PA [address] [place] [phone] 05/14/2025 10:20 AM MANAGER SUPPORT SERVICES Office Visit [facility] [place] [address] [place] [phone] Leatha Gonzalez, MORENO [address] [place] [phone] 01/21/2026 1:40 PM CDT Office Visit [facility] [address] [place] [address] Tory Vargas, CAMPUS COORDINATOR [address] [place] [address] 03/13/2026 9:30 AM CDT Office Visit [facility] [place] [address] [place] [address] Walter Orlando NP [address] [facility] [address] [place] [address] documented as of this encounter Visit Diagnoses Not on filedocumented in this encounter Care Teams Promotion Officer Relationship Specialty Start Date End Date Tomás Juárez DO [address] [place] [address] PCP - General Family Practice 06/05/21 documented as of this encounter
--- OUTSIDE RECORDS SUMMARY | 2025-04-12 07:31 | XMS_ITS | Encounter Summary ---
Author Organization [facility] Address [address] [place] [address] Care Team Providers Care Microgrinder Operator Name Role Phone Walter Juárez MD Primary Care Provider [phone] Encounter Details Date Type Department Care Team (Latest Contact Info) Description 07/08/2006 Outpatient Historical [facility] Medicine [place] [address] [place] [address] [phone] Va Nguyen MD [address] [place] [phone] DM w/o Complication Type II (CMS/HCC) (Primary Dx) Social History Tobacco Use Types Packs/Day Years Used Date Smoking Tobacco: Never Assessed Sex and Gender Information Value Date Recorded Sex Assigned at Not on file Legal Sex Male 4:00 AM RFID SPECIALIST Gender Identity Not on file Sexual Orientation Not on file documented as of this encounter Plan of Treatment Not on file documented as of this encounter Visit Diagnoses Diagnosis Type II or unspecified type diabetes mellitus without mention of complication, not stated as uncontrolled- Primary documented in this encounter Care Teams Microgrinder Operator Relationship Specialty Start Date End Date Walter Juárez MD [address] [place] [phone] PCP - General Family Practice 02/12/15 documented as of this encounter
--- OUTSIDE RECORDS SUMMARY | 2025-04-12 07:31 | XMS_ITS | Encounter Summary ---
Author Organization [facility] Address [address] [place] [address] Care Team Providers Care Urgent Care Nurse Practitioner Name Role Phone Walter Juárez MD Primary Care Provider Encounter Details Date Type Department Care Team (Latest Contact Info) Description 10/12/2006 Outpatient Historical 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
--- OUTSIDE RECORDS SUMMARY | 2025-04-12 07:31 | XMS_ITS | Encounter Summary ---
Author Organization [facility] Address [address] [place] [address] Care Team Providers Care Driving School Instructor Name Role Phone Tomás Juárez DO Primary Care Provider [phone] Reason for Visit * Reason Comments Provider Call Encounter Details Date Type Department Care Team (Late st Contact Info) Description 01/03/2025 Telephone [facility] Medicine [place] [address] [phone] Tomás Juárez DO [address] [phone] Provider Call Social History Tobacco [...] on file Legal Sex Male 4:07 PM SOCIAL WORK LECTURER Gender Identity Not on file Sexual Orientation [...] Delores REDMAN * Telephone Encounter - Tomás Jáurez DO - 01/03/2025 6:11 PM CDT Agree with chest x-ray. Any significant weight gain? Last weight in office 152 pounds on 12/10/2024. * Telephone Encounter - Delores Castellanos LPN - 01/03/2025 3:42 PM CDT 01/03/2025 3:42 PM Returned call and spoke with ROSALBA. Discussed med review preformed. Will send medication summary to [facility]. She states patient has a chronic cough [...] - 01/03/2025 12:45 PM CDT [facility][id number]. Topic: [id number] Call >> Jan 03, 2025 12:44 PM Gerson Solares wrote: Caller is requesting to speak with Clinical Care Team. Caller Name: Rosalba- Tatum Callback Number: [phone] Clinician Type: Other healthcare professional not listed [...] st Contact Info) Description 05/01/2025 1:40 PM SOCIAL WORK LECTURER Office Visit [facility] Pain Management [address] [place] [address] Ralph Rodriguez PA [address] [place] [address] 05/14/2025 10:20 AM SOCIAL WORK LECTURER Office Visit [address] [place] [phone] Leatha Gonzalez, [facility] [address] [place] [phone] 01/21/2026 1:40 PM CDT Office Visit [facility] [address] [facility] [address] [place] [address] Tory Vargas, [facility] [address] [facility] [address] [place] [address] 03/13/2026 9:30 AM CDT Office Visit [facility] Urology [place] [address] [place] [address] Walter Orlando [place] [address] [place] [address] documented as of this encounter [...] sounds documented in this encounter Care Teams Driving School Instructor Relationship Specialty Start Date End Date Tomás Juárez DO [address] [address] PCP - General Family Practice 06/05/21 documented as of this encounter
--- OUTSIDE RECORDS SUMMARY | 2025-04-12 07:31 | XMS_ITS | Encounter Summary ---
Author Organization [facility] Address [address] [place] [address] Care Team Providers Care Machine Printer Hose Name Role Phone Walter Juárez MD Primary Care Provider [phone] Encounter Details Date Type Department Care Team (Latest Contact Info) Description 05/09/2006 Outpatient Historical [facility] Medicine [place] [address] [place] [phone] Harlan Anton, MARBLE MACHINE OPERATOR [address] [place] [address] Osteoarth NOS-Other Site (Primary Dx); Allergic Rhinitis, Cause Unspecified Social History Tobacco Use Types Packs/Day Years Used Date Smoking Tobacco: Never Assessed Sex and Gender Information Value Date Recorded Sex Assigned at Not on file Legal Sex Male 4:00 AM JOB SITE SUPERINTENDENT Gender Identity Not on file Sexual Orientation Not on file documented as of this encounter Plan of Treatment Not on file documented as of this encounter Visit Diagnoses Diagnosis Osteoarthrosis, unspecified whether generalized or localized, other specified sites- Primary Allergic rhinitis, cause unspecified documented in this encounter Care Teams Machine Printer Hose Relationship Specialty Start Date End Date Walter Juárez MD [address] [phone] PCP - General Family Practice 02/12/15 documented as of this encounter
--- OUTSIDE RECORDS SUMMARY | 2025-04-12 07:32 | XMS_ITS | Encounter Summary ---
Author Organization [facility] Address [address] [place] [address] Care Team Providers Care Assistant Golf Course Superintendent Name Role Phone Walter Juárez MD Primary Care Provider [phone] Encounter Details Date Type Department Care Team (Latest Contact Info) Description 11/21/2006 Outpatient Historical [facility] Omar Anderson [address] [place] [phone] Unruly Wilcox MD NO ADDRESS ON FILE Unspecified Chest Pain (Primary Dx); Nonspecific Abnormal Electrocardiogram (ECG) (EKG) Social History Tobacco Use Types Packs/Day Years Used Date Smoking Tobacco: Never Assessed Sex and Gender Information Value Date Recorded Sex Assigned at Not on file Legal Sex Male 4: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
--- OUTSIDE RECORDS SUMMARY | 2025-04-12 07:32 | XMS_ITS | Encounter Summary ---
Author Organization [facility] Address [address] [place] [address] Care Team Providers Care Biztalk Developer Name Role Phone Walter Juárez MD Primary Care Provider [phone] Encounter Details Date Type Department Care Team (Latest Contact Info) Description 11/17/2006 Outpatient Historical [facility] Medicine [place] [address] [place] [phone] Harlan Anton, OXYGEN SYSTEM TESTER [address] [place] [address] Unspecified Chest Pain (Primary Dx) Social History Tobacco Use Types Packs/Day Years Used Date Smoking Tobacco: Never Assessed Sex and Gender Information Value Date Recorded Sex Assigned at Not on file Legal Sex Male 4:00 AM HAIR WORKER Gender Identity Not on file Sexual Orientation Not on file documented as of this encounter Plan of Treatment Not on file documented as of this encounter Visit Diagnoses Diagnosis Chest pain, unspecified- Primary documented in this encounter Care Teams Biztalk Developer Relationship Specialty Start Date End Date Walter Juárez MD [address] [phone] PCP - General Family Practice 02/12/15 documented as of this encounter
--- OUTSIDE RECORDS SUMMARY | 2025-04-12 07:32 | XMS_ITS | Encounter Summary ---
Author Organization [facility] Address [address] [place] [address] Care Team Providers Care Practicing Urologist Name Role Phone Walter Juárez MD Primary Care Provider [phone] Encounter Details Date Type Department Care Team (Late st Contact Info) Description 11/19/2006 Emergency [facility] Emergency Department [address] [place] [phone] Jose De Jesus Anderson MD [address] [place], [place] [phone] Unspecified Transient Cerebral Ischemia (Primary Dx) Social History Tobacco Use Types Packs/Day Years Used Date Smoking Tobacco: Never Assessed Sex and Gender Information Value Date Recorded Sex Assigned at Not on file Legal Sex Male 4:00 AM SEWAGE TREATMENT PLANT OPERATOR Gender Identity Not on file Sexual [...] CHEMISTRY ORDERABLES Edite d Performing Organization Address [facility] Phone Number INTERFACE SYSTEM Refer to [...] CHEMISTRY ORDERABLES Edite d Performing Organization Address [facility] Phone Number INTERFACE SYSTEM Refer to [...] Primary documented in this encounter Care Teams Practicing Urologist Relationship Specialty Start Date End Date Walter Juárez MD [address] [place] [phone] PCP - General Family Practice 02/12/15 documented as of this encounter
--- OUTSIDE RECORDS SUMMARY | 2025-04-12 07:33 | XMS_ITS | Encounter Summary ---
Author Organization [facility] Address [address] [place] [address] Care Team Providers Care Hemodialysis Charge Nurse Name Role Phone Walter Juárez MD Primary Care Provider [phone] Encounter Details Date Type Department Care Team (Latest Contact Info) Description 02/07/2007 Outpatient Historical [facility] Medicine [place] [address] [place] [phone] Harlan Anton, INSURANCE COORDINATOR [address] [place] [address] Mixed Hyperlipidemia (Primary Dx); Unspecified Essential Hypertension Social History Tobacco Use Types Packs/Day Years Used Date Smoking Tobacco: Never Assessed Sex and Gender Information Value Date Recorded Sex Assigned at Not on file 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
--- OUTSIDE RECORDS SUMMARY | 2025-04-12 07:33 | XMS_ITS | Encounter Summary ---
Author Organization [facility] Address [address] [place] [address] Care Team Providers Care Caltrans Equipment Operator Name Role Phone Walter Juárez MD Primary Care Provider [phone] Encounter Details Date Type Department Care Team (Late st Contact Info) Description 05/23/2007 Outpatient Historical [facility] Family Medicine [address] [phone] Social History Tobacco Use Types Packs/Day Years Used Date Smoking Tobacco: Never Assessed Sex and Gender Information Value Date Recorded Sex Assigned at Not on file Legal Sex Male 4:00 AM COST CONSULTANT Gender Identity Not on file Sexual Orientation Not on file documented as of this encounter Plan of Treatment Not on file documented as of this encounter Visit Diagnoses Not on filedocumented in this encounter Care Teams Caltrans Equipment Operator Relationship Specialty Start Date End Date Walter Juárez MD [address] [phone] PCP - General Family Practice 02/12/15 documented as of this encounter
--- OUTSIDE RECORDS SUMMARY | 2025-04-12 07:33 | XMS_ITS | Encounter Summary ---
Author Organization [facility] Address [address] [place] [address] Care Team Providers Care Top Waddy Name Role Phone Walter Juárez MD Primary Care Provider [phone] Encounter Details Date Type Department Care Team (Latest Contact Info) Description 12/12/2006 Outpatient [facility] Cardiology- [place] [address] [place] [address] Unruly Wilcox MD NO ADDRESS ON FILE Other and Unspecified Angina Pectoris (Primary Dx); Other Specified Cardiac Dysrhythmias Social History Tobacco Use Types Packs/Day Years Used Date Smoking Tobacco: Never Assessed Sex and Gender Information Value Date Recorded Sex Assigned at Not on file 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
--- OUTSIDE RECORDS SUMMARY | 2025-04-12 07:33 | XMS_ITS | Encounter Summary ---
Author Organization [facility] Address 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 Gender Identity Not on file Sexual Orientation Not on file documented as of this encounter Miscellaneous Notes * Telephone Encounter - Nayeli Kee LPN - 04/08/2025 2:47 PM CDT Medication Refill Request Last Fill Date:08/09/24 #90 x 1 refill Recent and Future Visits: Recent Visits Date Type Provider Dept 02/11/25 Office Visit Leatha Gonzalez, [facility] 12/10/24 Office Visit Tomás Juárez DO [facility] 09/21/24 Video Visit Padmini Carr [facility] Medicine [place] 08/28/24 Office Visit Marzena Rodriguez [facility] 05/22/24 Office Visit Leatha Gonzalez [facility] 05/18/24 Office Visit Padmini Carr [facility] 05/08/24 Office Visit Marzena Rodriguez [facility] 04/12/24 Office Visit Leatha Gonzalez [facility] 02/10/24 Office Visit Tomás Juárez DO [facility] 01/11/24 Office Visit Tomás Juárez DO [facility] Showing recent visits within past 540 days with a meds authorizing provider and meeting all other requirements Future Appointments Date Type Provider Dept 05/14/25 Appointment Leatha Gonzalez FNP [facility] Showing future appointments within next 365 days with a meds authorizing provider and meeting all other requirements Last Labs: Lab Results Component Value Date/Time TSH 1.79 12/10/2024 12:11 PM T4FREE 1.2 10/25/2022 03:12 PM documented in this encounter Plan of Treatment Upcoming Encounters Date Type Department Care Team (Late st Contact Info) Description 05/01/2025 1:40 PM FACULTY RESEARCH ASSISTANT Office Visit [facility] Pain Management [address] [place] [address] Ralph Rodriguez, JUMANA [address] [place] [address] 05/14/2025 10:20 AM FACULTY RESEARCH ASSISTANT Office Visit [facility] [address] [place] [phone] Leatha Gonzalez FNP [address] [phone] 01/21/2026 1:40 PM CDT Office Visit [facility] Cardiology [facility] [address] [place] [address] Tory Vargas FNP [address] [place] [address] 03/13/2026 9:30 AM CDT Office Visit [facility] Urology [place] [address] [place] [address] Walter Orlando NP [address] [phone] documented as of this encounter Visit Diagnoses Diagnosis Acquired hypothyroidism Unspecified hypothyroidism documented in this encounter Care Teams Service Transformer Repair Supervisor Relationship Specialty Start Date End Date Tomás Juárez DO [address] [place] [phone] PCP - General Family Practice 06/05/21 documented as of this encounter
--- OUTSIDE RECORDS SUMMARY | 2025-04-12 07:33 | XMS_ITS | Encounter Summary ---
Author Organization [facility] Address [address] [place] [address] Care Team Providers Care Human Factors Advisor Lead Name Role Phone Walter Juárez MD Primary Care Provider [phone] Encounter Details Date Type Department Care Team (Latest Contact Info) Description 01/31/2007 Outpatient [facility] Cardiology- [place] [address] [place] [address] Unruly Wilcox MD NO ADDRESS ON FILE Coronary Atherosclerosis of [place] Coronary Artery (Primary Dx); Other and Unspecified Hyperlipidemia Social History Tobacco Use Types Packs/Day Years Used Date Smoking Tobacco: Never Assessed Sex and Gender Information Value Date Recorded Sex Assigned at Not on file 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
--- OUTSIDE RECORDS SUMMARY | 2025-04-12 07:33 | XMS_ITS | Encounter Summary ---
Author Organization [facility] Address [address] [place] [address] Care Team Providers Care Mailroom Coordinator Name Role Phone Walter Juárez MD Primary Care Provider Encounter Details Date Type Department Care Team (Latest Contact Info) Description 11/21/2006 Outpatient Historical [facility] [address] [place] [place] [address] Venkata Rodney MD [address] 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
--- OUTSIDE RECORDS SUMMARY | 2025-04-12 07:33 | XMS_ITS | Encounter Summary ---
Author Organization [facility] Address [address] [place] [address] Care Team Providers Care Farm Operations Technical Director Name Role Phone Walter Juárez MD Primary Care Provider [phone] Encounter Details Date Type Department Care Team (Late st Contact Info) Description 12/19/2006 Inpatient Historical HIS IN BED Honorio Spicer MD [address] [place], [place] [address] [place] [address] Coronary Atherosclerosis of [place] Coronary Artery (Primary Dx) Social History Tobacco Use Types Packs/Day Years Used Date Smoking Tobacco: Never Assessed Sex and Gender Information Value Date Recorded Sex Assigned at Not on file 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 Gender Identity Not on file Sexual Orientation [...] OF CARE TESTING Edited Performing Organization Address [facility] Phone Number INTERFACE SYSTEM Refer to clinic/hospital department * (ABNORMAL) POC ACTIVATED CLOTTING TIME (12/19/2006 3:18 PM CDT) ACT POC 156(H) 79 - 149 sec INTERFACE SYSTEM 12/19/2006 3:18 PM CDT Honorio Spicer MD POINT OF CARE TESTING Edited Performing Organization Address [facility] Phone Number INTERFACE SYSTEM Refer to clinic/hospital department * (ABNORMAL) POC ACTIVATED CLOTTING TIME (12/19/2006 2:08 PM CDT) ACT POC 178(H) 79 - 149 sec INTERFACE SYSTEM 12/19/2006 2:08 PM CDT Honorio Spicer MD POINT OF CARE TESTING Edited Performing Organization Address [facility] Phone Number INTERFACE SYSTEM Refer to clinic/hospital department * (ABNORMAL) POC ACTIVATED CLOTTING TIME (12/19/2006 12:16 PM CDT) ACT POC 233(H) 79 - 149 sec INTERFACE SYSTEM 12/19/2006 12:1 6 PM CDT us Honorio Spicer MD POINT OF CARE TESTING Edited Performing Organization Address [facility] Phone Number INTERFACE SYSTEM Refer to clinic/hospital department * (ABNORMAL) POC GLUCOSE (12/19/2006 12:12 PM CDT) GLUCOSE POC 109(H) 60 - 100 mg/dL INTERFACE SYSTEM 12/19/2006 12:1 2 PM CDT Honorio Spicer MD POINT OF CARE TESTING Edited Performing Organization Address [facility] Phone Number INTERFACE SYSTEM [...] MD CHEMISTRY ORDERABLES Edited Performing Organization Address [facility] Phone Number INTERFACE SYSTEM [...] Goal INR 3.0; range 2.5 - 3.5 [place] Goal INR 2.5; range 2.0 - 3.0 [...] MD HEMATOLOGY ORDERABLES Edited Performing Organization Address [facility] de Phone Number INTERFACE [...] MD CHEMISTRY ORDERABLES Edited Performing Organization Address [facility] de Phone Number INTERFACE SYSTEM Refer to clinic/hospital department documented in this encounter Visit Diagnoses Diagnosis Coronary atherosclerosis of [place] coronary artery- Primary documented in this encounter Care Teams Farm Operations Technical Director Relationship Specialty Start Date End Date Walter Juárez MD [address], [place] [address] PCP - General Family Practice 02/12/15 documented as of this encounter
--- OUTSIDE RECORDS SUMMARY | 2025-04-12 07:33 | XMS_ITS | Encounter Summary ---
Author Organization [facility] Address [address] [place] [address] Care Team Providers Care Sheriffs Name Role Phone Wlater Juárez MD Primary Care Provider [phone] Encounter Details Date Type Department Care Team (Latest Contact Info) Description 05/08/2007 Outpatient Historical [facility] Cardiology [facility] [address] [place] [address] Unruly Wilcox MD NO ADDRESS ON FILE Other and Unspecified Angina Pectoris (Primary Dx) Social History Tobacco Use Types Packs/Day Years Used Date Smoking Tobacco: Never Assessed Sex and Gender Information Value Date Recorded Sex Assigned at Not on file 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
--- OUTSIDE RECORDS SUMMARY | 2025-04-12 07:33 | XMS_ITS | Encounter Summary ---
Author Organization [facility] Address [address] [place] [address] Care Team Providers Care Broadcast Designer Name Role Phone Walter Juárez MD Primary Care Provider [phone] Encounter Details Date Type Department Care Team (Latest Contact Info) Description 01/03/2007 Outpatient Historical [facility] Medicine [place] [address] [place] [phone] Oswaldo Hernandez MD [address] [place] [phone] Dermatophytosis of the Body (Primary Dx) Social History Tobacco Use Types Packs/Day Years Used Date Smoking Tobacco: Never Assessed Sex and Gender Information Value Date Recorded Sex Assigned at Not on file 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
--- OUTSIDE RECORDS SUMMARY | 2025-04-12 07:34 | XMS_ITS | Encounter Summary ---
Author Organization [facility] Address [address] 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
--- OUTSIDE RECORDS SUMMARY | 2025-04-12 07:34 | XMS_ITS | Encounter Summary ---
Author Organization [facility] Address [address] [place] [address] Care Team Providers Care Bar Helper Name Role Phone Walter Juárez MD Primary Care Provider [phone] Encounter Details Date Type Department Care Team (Latest Contact Info) Description 04/08/2005 Outpatient Historical [facility] Medicine [place] [address] [place] [phone] Harlan Anton, CONSERVATION OFFICER [address] [place] [address] GASTRITIS/DUODEN NOS W/O HEMORRH (Primary Dx) Social History Tobacco Use Types Packs/Day Years Used Date Smoking Tobacco: Never Assessed Sex and Gender Information Value Date Recorded Sex Assigned at Not on file 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
--- OUTSIDE RECORDS SUMMARY | 2025-04-12 07:34 | XMS_ITS | Clinical Summary ---
Author Organization [facility] Address [address] [place] [address] Phone Care Team Providers Care Cement Production Plant Operator Name Role Phone Tomás Juárez DO Primary Care Provider Allergies Active Allergy Reactions Criticality Noted Date Comments Hymenoptera Allergenic Extract Anaphylaxis High 01/19 Bee stings Metformin Diarrhea Low 12/09/2017 Medications iron/vitamin B complex (GERITOL ORAL) Take by mouth daily. 015 Active aspirin 81 mg chewable tablet Take 81 mg by mouth daily. Active clopidogreL (PLAVIX) 75 mg TabletIndications :Coronary artery disease involving ione coronary artery without angina pectoris, unspecified whether ione or transplanted heart Take 1 Tablet (75 [...] type, unspecified whether angina present, unspecified whether ione or transplanted heart TAKE 1 TABLET DAILY 90 Tablet 3 025 Active nitroglycerin (Nitrostat) 0.4 mg Tablet, SublingualIndicat ions:Coronary artery disease involving ione coronary artery of ione heart without angina pectoris Place 1 Tablet [...] Each 025 Active flash glucose scanning reader ([employer] Oanh 2 Sundance) MiscIndications:T ype 2 diabetes mellitus with hyperglycemia, [...] 1 Active Blood-Glucose Meter,Continuous (FreeStyle Oanh 3 Sundance)Indication s:Type 2 diabetes mellitus with hyperglycemia, without [...] with breakfast. 9 mL 1 Active Insulin [place], Disposable, 31 gauge x 3/16 NeedleIndications :Type [...] 1 12/10/ 025 2024 Discontinued(R eorder) Insulin [place], Disposable, 31 gauge x 3/16 NeedleIndications :Type [...] 60%. There is no mitral insufficiency. Dr Spcier proceeded with deployment of a 2.5- x [...] Date Type Department Care Team Description 04/07/[address] [phone] Tomás Juárez DO Acquired hypothyroidism 03/31/[address] [address] Tomás Juárez, DO Type 2 diabetes mellitus with hyperglycemia, without long-term current use of insulin 03/31/[address] [phone] Tomás Juárez DO Type 2 diabetes mellitus with hyperglycemia, without long-term current use of insulin 03/22/[address] [phone] Tomás Juárez DO Type 2 diabetes mellitus with hyperglycemia, without long-term current use of insulin 03/13/[address] [address] Tomás Juárez DO Type 2 diabetes mellitus with hyperglycemia, without long-term current use of insulin (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); Urinary retention 02/13/2025 External Device Data STL ABSTRACTION Provider, Abstract 02/11/2025 11:00 AM CDT Office Visit [address] [address] Leatha Gonzalez FNP Medicare annual wellness visit, subsequent (Primary Dx); Gastroesophageal reflux disease, unspecified whether esophagitis present 02/11/2025 [facility] [address] [facility] [place] [phone] Tory Vargas FNP 02/11/2025 Refill [facility] [address] [phone] Tomás Juárez DO Hyperlipidemia, unspecified hyperlipidemia type 02/05/2025 External Device Data STL ABSTRACTION Provider, Abstract 02/05/2025 External Device Data STL ABSTRACTION Provider, Abstract 02/04/2025 10:30 AM CDT Office Visit [facility] Vascular Surgery [place] [address] [phone] Consuelo Agee DO 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); 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 Telephone [facility] [address] [phone] Tomás Juárez DO Provider Call 01/31/2025 Telephone [facility] Vascular Surgery [place] [address] [address] Consuelo Agee DO Appointment Verification 01/29/2025 10:33 AM CDT - 01/29/2025 11:59 PM CDT Hospital Encounter [facility] Pain Management Procedures [place] [address] [place] [phone] Ryan Buitrago MD Discharge Disposition: Home or Self Care 01/29/2025 10:12 AM CDT - 01/29/2025 11:59 PM CDT Hospital Encounter [facility] Pain Management Procedures [place] [address] [place] [address] Ryan Buitrago MD Discharge Disposition: Home or Self Care 01/23/2025 Telephone [facility] [address] [phone] Tomás Juárez DO Provider Call 01/16/2025 10:00 AM CDT Office Visit [facility] [address] [place] [address] Tory Vargas FNP Coronary artery disease involving ione coronary artery of ione heart without angina pectoris (Primary Dx); Mixed hyperlipidemia; Murmur, cardiac; S/P drug eluting coronary stent placement; Syncope, unspecified syncope type; Celiac artery stenosis 01/16/2025 Telephone [facility] Vascular Surgery [place] [address] [place] [address] Abdoulaye Montano MD Referral 01/10/2025 Telephone [facility] Family 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 [address] [phone] Leatha Gonzalez, [facility] [address] [phone] 01/21/2026 1:40 PM CDT Office Visit [facility] [address] [place] [address] Tory Vargas, [facility] [address] [place] [address] 03/13/2026 9:30 AM CDT Office Visit [facility] Urology [place] [address] [place] [address] Walter Orlando NP [address] [place] [address] Health Maintenance Due Date Last [...] history exists Medical Devices Implanted Type Area Sanitation Officer Device Identifier Shelf Expiration Date Model / Serial / Lot Promus Premier 3x12 Implanted:03/28 (Quantity not on file) Stent / / [id number] Stent Synergy Xd 2.5x8mm Evrs ut [id number] - [id number] Implanted:Qty: 1 on 11/04/2022 at [facility] Stent Left: [employer] VAL 01/19/2024 [id number] / / [id number] Procedures Procedure Name Priority Date/Time Associated Diagnosis Comments PROCEDURE REPORT 02/25/2025 7:57 AM CDT XR FLUORO NEEDLE GUIDANCE SPINE Routine 01/29/2025 10:39 AM CDT MICROALBUMIN/CREATIN INE RATIO, RANDOM UR Routine 12/10/2024 12:25 PM CDT Type 2 diabetes mellitus with hyperglycemia, without long-term current use of insulin ([facility]) LIPID PANEL Routine 12/10/2024 12:11 PM CDT Type 2 diabetes mellitus with hyperglycemia, without long-term current use of insulin ([facility]) HEMOGLOBIN A1C Routine 12/10/2024 12:11 PM CDT Type 2 diabetes mellitus with hyperglycemia, without long-term current use of insulin ([facility]) HM DIABETES EYE EXAM Routine 11/10/2022 11:13 [...] within a diagnostic category. Test Performed at: [facility] [address] Craig Galindo MD Urine URINE SPECIMEN OBTAINED BY CLEAN CATCH PROCEDURE / Unknown 12/10/2024 12:25 PM CDT 12/10/2024 12:25 PM CDT Tomástyler Juárez URINE ORDERABLES Final Result [facility] [phone] [facility] [address] * (ABNORMAL) HEMOGLOBIN A1C (12/10/2024 12:11 PM CDT) HEMOGLOBIN A1C 8.0(H) <5.7 % [facility] Comment: For someone without known diabetes, [...] children. ESTIMATED AVERAGE GLUCOSE (MG/DL) 183 mg/dL [facility] ESTIMATED AVERAGE GLUCOSE (MMOL/L) 10.1 mmol/L [facility] Comment: FASTING:NO FASTING: NO Test Performed at: [facility] [address] [place] [address] [place] [address] Craig Galindo MD Blood 12/10/2024 12:1 1 PM CDT 12/10/2024 12:12 PM CDT Tomás Juárez DO CHEMISTRY ORDERABLES Final Re sult Performing Organization Address City/[facility]/ZIP Co de Phone Number [facility] [phone] [facility] [address] [facility] [place] [address] * LIPID PANEL (12/10/2024 12:11 PM CDT) CHOLESTEROL 144 <200 mg/dL [facility] HDL 62 > OR = 40 mg/dL [facility] TRIGLYCERIDE 76 <150 mg/dL [facility] LDL CALCULATED 66 mg/dL (calc) [facility] Comment: Reference range: <100 Desirable range <100 mg/dL for primary prevention; <70 mg/dL for patients with CHD or diabetic patients with > or = 2 CHD risk factors. LDL-C is now calculated using the Kylee calculation, which is a validated novel method providing better accuracy than the Friedewald equation in the estimation of LDL-C. Kyle ROSA et al. DIEGO. 2013;310(19): 5215-7106 (http://education.Ghostruck/faq/RNT444) CHOL/HDL RATIO 2.3 <5.0 (calc) [facility] NON-HDL CHOLESTEROL 82 <130 mg/dL (calc) [facility] Comment: For patients with diabetes plus 1 major ASCVD risk factor, treating to a non-HDL-C goal of <100 mg/dL (LDL-C of <70 mg/dL) is considered a therapeutic option. Test Performed at: [facility] [address] [place] [phone] Craig Galindo MD Blood 12/10/2024 12:1 1 PM CDT 12/10/2024 12:12 PM CDT Tomás Juárez DO CHEMISTRY ORDERABLES Final Re sult Performing Organization Address City/[facility]/ZIP Co de Phone Number [facility] [phone] [facility] [address] [place] [address] * HM DIABETES EYE EXAM (11/10/2022 11:13 AM CDT) us Abstract Provider HEALTH MAINTENANCE Final Resul t from Last 3 Months or Most Recently Relevant to Health Maintenance Insurance MEDICARE PART A AND B FOR LIFE [employer] Advance Directives For more information, please contact: [phone] Documents on File Type Date Recorded Patient Forge Shop Machine Repairer Expl anation Advance Directive POA 12/14/2024 11:25 AM Advance Directive POA * Full Code (Latest Code Status on File) Date Activated Date Inactivated Comments 10/04/2024 3:55 PM 10/08/2024 3:49 PM * Full Code Date Activated Date Inactivated Comments 11/04/2022 9:31 AM 11/05/2022 2:30 PM Care Teams Cement Production Plant Operator Relationship Specialty Start Date End Date Tomás Juárez DO [address], [place] [address] PCP - General Family Practice 06/05/21
--- OUTSIDE RECORDS SUMMARY | 2025-04-12 07:34 | XMS_ITS | Encounter Summary ---
Author Organization [facility] Address [address] [place] [address] Care Team Providers Care Receiving Tank Operator Name Role Phone Walter Juárez MD Primary Care Provider [phone] Encounter Details Date Type Department Care Team (Latest Contact Info) Description 12/06/2002 Outpatient Historical [facility] Mynor Garcia MD NO ADDRESS ON FILE Enthesopathy of hip (Primary Dx) Social History Tobacco Use Types Packs/Day Years Used Date Smoking Tobacco: Never Assessed Sex and Gender Information Value Date Recorded Sex Assigned at Not on file Legal Sex Male 4: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
--- OUTSIDE RECORDS SUMMARY | 2025-04-12 07:34 | XMS_ITS | Encounter Summary ---
Author Organization [facility] Address [address] [place] [address] Care Team Providers Care Tool Crib Supervisor Name Role Phone Walter Juárez MD Primary Care Provider [phone] Encounter Details Date Type Department Care Team (Latest Contact Info) Description 04/09/2005 Outpatient Historical [facility] Medicine [place] [address] [place] [phone] Harlan Anton, PIG IRON LOADER [address] [place] [address] ABDOMINAL PAIN UNSPEC SITE (Primary Dx) Social History Tobacco Use Types Packs/Day Years Used Date Smoking Tobacco: Never Assessed Sex and Gender Information Value Date Recorded Sex Assigned at Not on file Legal Sex Male 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
--- OUTSIDE RECORDS SUMMARY | 2025-04-12 07:35 | XMS_ITS | Encounter Summary ---
Author Organization [facility] Address [address] [place] [address] Care Team Providers Care Basketball Assembler Name Role Phone Walter Juárez MD Primary Care Provider [phone] Encounter Details Date Type Department Care Team (Latest Contact Info) Description 04/16/2005 Outpatient Historical [facility] Medicine [place] [address] [place] [phone] Harlan Anton, CHOCOLATE MAKER [address] [place] [address] DIARRHEA NOS (Primary Dx); CONSTIPATION NOS Social History Tobacco Use Types Packs/Day Years Used Date Smoking Tobacco: Never Assessed Sex and Gender Information Value Date Recorded Sex Assigned at Not on file 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
--- OUTSIDE RECORDS SUMMARY | 2025-04-12 07:35 | XMS_ITS | Encounter Summary ---
Author Organization [facility] Address [address] [place] [address] Care Team Providers Care Sap Fico Business Analyst Name Role Phone Walter Juárze MD Primary Care Provider [phone] Encounter Details Date Type Department Care Team (Late st Contact Info) Description 04/10/2005 Emergency [facility] Emergency Department [address] 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 FORK OPERATOR Gender Identity Not on file Sexual [...] ORDERABLES Final Resu lt Performing Organization Address City/[facility]/ZIP Co de Phone Number INTERFACE SYSTEM Refer [...] ORDERABLES Final Res ult Performing Organization Address [facility] Phone Number INTERFACE SYSTEM Refer to [...] URINE ORDERABLES Final Result Performing Organization Address [facility] Phone Number INTERFACE SYSTEM Refer to clinic/hospital department * ICTOTEST (04/10/2005 6:12 PM CDT) ICTO Negative Negative INTERFACE SYSTEM 04/10/2005 6:12 PM CDT Physician Sj Ed URINE ORDERABLES Final Result Performing Organization Address City/[facility] Phone Number INTERFACE SYSTEM Refer to clinic/hospital department * (ABNORMAL) GLUCOSE URINALYSIS, QUALITATIVE (04/10/2005 6:12 PM CDT) GLUCOSE, URINE 100 mg/dl(A) Negative INTERFACE SYSTEM 04/10/2005 6:12 PM CDT Physician Sj Ed URINE ORDERABLES Final Result Performing Organization Address City/[facility] de Phone Number INTERFACE SYSTEM Refer [...] URINE ORDERABLES Final Result Performing Organization Address [facility] Phone Number INTERFACE SYSTEM Refer to clinic/hospital department documented in this encounter Visit Diagnoses Diagnosis Abdominal pain, unspecified site- Primary documented in this encounter Care Teams Sap Fico Business Analyst Relationship Specialty Start Date End Date Walter Juárez MD [address], [place] [phone] PCP - General Family Practice 02/12/15 documented as of this encounter
--- OUTSIDE RECORDS SUMMARY | 2025-04-12 07:36 | XMS_ITS | Encounter Summary ---
Author Organization [facility] Address [address] [place] [address] Care Team Providers Care Patient Registration Supervisor Name Role Phone Walter Juárez MD Primary Care Provider [phone] Encounter Details Date Type Department Care Team (Latest Contact Info) Description 04/20/2005 Outpatient Historical [facility] Medicine [place] [address] [place] [phone] Harlan Anton, EDUCATIONAL RECRUITER [address] [place] [address] Vaccine for influenza (Primary Dx) Social History Tobacco Use Types Packs/Day Years Used Date Smoking Tobacco: Never Assessed Sex and Gender Information Value Date Recorded Sex Assigned at Not on file Legal Sex Male 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
--- OUTSIDE RECORDS SUMMARY | 2025-04-12 07:36 | XMS_ITS | Encounter Summary ---
Author Organization [facility] Address [address] [place] [address] Care Team Providers Care Software Packager Name Role Phone Walter Juárez MD Primary Care Provider [phone] Encounter Details Date Type Department Care Team (Late st Contact Info) Description 05/21/2005 Outpatient Historical [facility] Endoscopy [place] [address] [place] [phone] MD [address] [place] [address] Disability Determination Services [place], [place] [id number] CONSTIPATION NOS (Primary Dx) Social History Tobacco Use Types Packs/Day Years Used Date Smoking Tobacco: Never Assessed Sex and Gender Information Value Date Recorded Sex Assigned at Not on file Legal Sex Male 4: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
--- OUTSIDE RECORDS SUMMARY | 2025-04-12 07:36 | XMS_ITS | Encounter Summary ---
Author Organization [facility] Address [address] [place] [address] Care Team Providers Care Hospital Aides And Assistants Teacher Name Role Phone Walter Juárez MD Primary Care Provider [phone] Encounter Details Date Type Department Care Team (Late st Contact Info) Description 05/21/2005 Outpatient [facility] Gastroenterology[address] [place] [phone] MD [address] [place] [address] [place] [address] DIARRHEA NOS (Primary Dx) Social History Tobacco Use Types Packs/Day Years Used Date Smoking Tobacco: Never Assessed Sex and Gender Information Value Date Recorded Sex Assigned at Not on file Legal Sex Male 4:00 AM OFFICE RN Gender Identity Not on file Sexual Orientation Not on file documented as of this encounter Plan of Treatment Not on file documented as of this encounter Visit Diagnoses Diagnosis Diarrhea- Primary documented in this encounter Care Teams Hospital Aides And Assistants Teacher Relationship Specialty Start Date End Date Walter Juárez MD [address] [place] [phone] PCP - General Family Practice 02/12/15 documented as of this encounter
[2025-04-12] MEDS: morphine 4 mg/mL SDV 1 mL IVP (08:18)
--- NOTE | 2025-04-12 08:19 | PC.NURSE ---
pt in a 7 out of 10 pain. cdl nurse call [facility] nurse and got an ok to give pain meds.
--- NOTE | 2025-04-12 09:00 | PC.SOCIAL ---
IMM Update pg 2 of IMM Updated and reviewed w/ patient. Copy provided and copy dated, initialed and placed in chart. However, patients status has now changed to observation.
[2025-04-12] MEDS: LOSARTAN 25 MG TABLET PO (10:11)
--- NOTE | 2025-04-12 16:45 | P.PN_ITS ---
Subjective 2 Subjective: Patient was seen this morning, currently alert oriented x 3, following all commands, does report anterior chest discomfort Vitals/I&O/Wt Last Vital Signs Temp 97.6 F 04/12/25 16:00 Pulse 72 04/12/25 16:00 Resp 21 H 04/12/25 16:00 BP 128/71 04/12/25 16:00 Pulse Ox 98 04/12/25 08:18 O2 Del Method Room Air 04/12/25 03:27 04/12/25 04/12/25 04/12/25 06:59 14:59 22:59 Intake Total 426.25 / 426.25 Balance 426.25 / 426.25 Weight last 48 hrs Weight 88.5 kg Weight 77 kg Weight 74.843 kg Physical Exam 2 Const: COMMON NORMALS: no acute distress and patient oriented x3 Resp: COMMON NORMALS: normal respiratory effort, No retractions, No use of accessory muscles and clear to auscultation bilaterally AUSCULTATION: clear to auscultation bilaterally Cardio: COMMON NORMALS: regular rate, regular rhythm, S1 normal heart sound present and S2 normal heart sound present RATE: regular rate RHYTHM: r egular rhythm HEART SOUNDS: S1 normal heart sound present and S2 normal heart sound present GI: COMMON NORMALS: Normal to inspection, nondistended, normoactive bowel sounds present and non-tender Extremity: COMMON NORMALS: no pedal edema Neuro: COMMON NORMALS: patient oriented x3 Psych: COMMON NORMALS: mental status grossly normal Data 04/12/25 01:10 04/12/25 01:10 A&P Assessment and plan 1. Coronary artery disease: 2. 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 Cardiac echo CONCLUSIONS Normal LV size and ejection fraction of 60%. Mild calcific left-ventricular hypertrophy.no regional wall motion abnormalities. Grade I/IV diastolic dysfunction (abnormal relaxation filling pattern), normal to mildly elevated filling pressures. Mildly increased left atrial size. 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 Moderate eccentric mitral regurgitation. Moderate mitral annular calcification. Thickened mitral valve. Trace tricuspid valve regurgitation. Thickened aortic valve. Trace pulmonary valve regurgitation. There is no pericardial effusion. There are no intracardiac masses. No similar previous studies are available for comparison - Must continue to monitor and optimize - Cardiology consulted #2 GI and DVT prophylaxis in place PDMP PDMP Reviewed: Not Reviewed Attestations 2 Medical Necessity Statement*: Patient requires hospitalization for chest pain Diagnoses Coronary artery disease I25.10 Chest pain R07.9
--- NOTE | 2025-04-12 18:17 | PM.CONSULT ---
Providers/Reason For Consult Consulting Physician/Specialty*: Domitila Haskins MD Reason for Consult*: Chest pain Abnormal stress test History of coronary artery disease Requesting Physician: Dr. Amanda Godinez Attending Physician: Herbert Patel MD Primary Care Provider: Tomás Juárez DO History of Present Illness History of Present Illness Cisco Guthrie is a 89 year old male past medical history significant for coronary artery disease prior PCI last 1 was in 2023 in [facility] has been experiencing worsening of chest pain for the last 2 to 3 months initially it was once a week but now 3-4 times a week, yesterday when pain became more intense he decided to come to the ER STEMI pager was alerted I saw the patient in the ER as well based upon his EKG it was not concerning for ST elevation PA therefore patient was admitted. He was ruled out for acute coronary syndrome however stress test showed old inferior wall myocardial infarction with kelli-infarct ischemia according to the patient and his it is hindering his daily lifestyle and has been noticing symptoms which has worsened and he would like to do something for it. Medications/Allergies Home Medications ?Medication ?Instructions ?Recorded ?Confirmed ?Last Taken ?Type albuterol sulfate 90 mcg/actuation 1 - 2 puff inhalation Q6H PRN SOB 04/11/25 04/11/25 Unknown History aerosol inhaler atorvastatin 40 mg tablet 40 mg PO BEDTIME 04/11/25 04/11/25 04/10/25 History clopidogrel 75 mg tablet 75 mg PO DAILY 04/11/25 04/11/25 04/11/25 History doxazosin 8 mg tablet 8 mg PO DAILY 04/11/25 04/11/25 04/11/25 History escitalopram oxalate 10 mg tablet 10 mg PO DAILY 04/11/25 04/11/25 04/11/25 History glimepiride 2 mg tablet 2 mg PO DAILY 04/11/25 04/11/25 04/11/25 History hydrocodone 10 mg-acetaminophen See Rx Instructions .Route 04/11/25 04/11/25 Unknown History 325 mg tablet .COMPLEX PRN Pain, Moderate insulin glargine 100 unit/mL (3 10 unit SUBCUT DAILY 04/11/25 04/11/25 04/11/25 History mL) subcutaneous pen (Lantus Solostar U-100 Insulin) isosorbide mononitrate 30 mg 30 mg PO DAILY 04/11/25 04/11/25 04/11/25 History tablet,extended release 24 hr levothyroxine 75 mcg tablet 75 mcg PO QAM 04/11/25 04/11/25 04/11/25 History (Synthroid) losartan 25 mg tablet 25 mg PO DAILY 04/11/25 04/11/25 04/11/25 History nitroglycerin 0.4 mg sublingual 0.4 mg sublingual Q5MIN 04/11/25 04/11/25 04/11/25 17:00 History tablet pantoprazole 40 mg tablet,delayed 40 mg PO DAILY 04/11/25 04/11/25 04/11/25 History release sitagliptin phosphate 50 mg tablet 50 mg PO DAILY 04/11/25 04/11/25 04/11/25 History (Januvia) Allergies Allergy/AdvReac Type Severity Reaction Status Date / Time metformin Allergy ADR-Diarrhe Verified 04/11/25 18:42 a Current Medications Generic Name Dose Route Start Last Admin Trade Name Maikolq PRN Reason Stop Dose Admin Aspirin 81 mg 04/12/25 08:20 04/12/25 10:11 Aspirin 81 Mg Ec Tablet PO 81 mg DAILY STEPHANIE Administration Clopidogrel Bisulfate 75 mg 04/12/25 08:15 04/12/25 10:10 Clopidogrel 75 Mg Tablet PO 75 mg DAILY STEPHANIE Administration Escitalopram Oxalate 10 mg 04/12/25 08:15 04/12/25 10:11 Escitalopram 10 Mg Tablet PO 10 mg DAILY STEPHANIE Administration Heparin Sodium (Porcine) 5,000 unit 04/12/25 01:15 04/12/25 12:52 Heparin 5,000 Unit/Ml Inj 1 Ml SUBCUT 5,000 unit Q12H STEPHANIE Administration Insulin Human Lispro 0 unit 04/12/25 08:00 04/12/25 17:20 Insulin Lispro 100 Unit/1 Ml SUBCUT Not Given WM&BEDTIME [facility] Protocol Isosorbide Mononitrate 30 mg 04/12/25 08:15 04/12/25 10:11 Isosorbide Mononitrate Er 30 Mg Tablet PO 30 mg DAILY STEPHANIE Administration Levothyroxine Sodium 75 mcg 04/12/25 08:15 04/12/25 10:11 Levothyroxine 75 Mcg Tablet PO 75 mcg QAM STEPHANIE Administration Losartan Potassium 25 mg 04/12/25 08:20 04/12/25 10:11 Losartan 25 Mg Tablet PO 25 mg DAILY STEPHANIE Administration Vitals/I&O/Wt Last Vital Signs Temp 97.6 F 04/12/25 16:00 Pulse 72 04/12/25 16:00 Resp 21 H 04/12/25 16:00 BP 128/71 04/12/25 16:00 Pulse Ox 98 04/12/25 08:18 O2 Del Method Room Air 04/12/25 03:27 04/12/25 04/12/25 04/12/25 06:59 14:59 22:59 Intake Total 426.25 / 426.25 Balance 426.25 / 426.25 Weight last 48 hrs Weight 195 lb 1.745 oz Weight 169 lb 12.095 oz Weight 165 lb Physical Exam Const: OTHER: GENERAL: Patient is alert, awake and oriented x3. HEART: Regular S1 and S2. No murmur, rub or gallop. LUNGS: Clear to auscultate bilaterally. CENTRAL NERVOUS SYSTEM: Grossly nonfocal. EXTREMITIES: Lower extremities with out edema bilaterally. Data 04/12/25 01:10 04/12/25 01:10 A&P Assessment and plan 1. Chest pain: 2. Coronary artery disease: Plan: Patient presentation with worsening of chest pain increase in frequency and duration and prior history of multiple stent is concerning for unstable angina stress test though showed inferior wall myocardial infarction with small area of kelli-infarct ischemia but chest pain appeared to be typical and hindering patient lifestyle we would therefore proceed with left heart cath. Patient has been explained all risk-benefit and alternative for the procedure he had advised would like to proceed with it. We are planning to keep him n.p.o. overnight and left heart cath tomorrow morning. Continue current management, continue aspirin and statin beta-chela and clopidogrel along with isosorbide mononitrate. PDMP PDMP Reviewed: Not Reviewed Consult Attestations Medical Necessity Statement: Patient require continuation hospitalization for above defined care Coding Level of Care Code Acute Code for g Fwd Diagnoses Chest pain R07.9 Coronary artery disease I25.10
[2025-04-13] VITALS (47 sets, daily range): BP systolic 75–175; BP diastolic 44–107; PULSE 62–132; RESP 14–26; TEMP 36.7–36.9; O2SAT 85–98; BMI 33.6
[2025-04-13 03:51] LABS: Hematocrit 36.1 % (37-53); Hemoglobin 12.20 g/dL (11.27-16.99); Mean Corpuscular HGB Conc 33.8 g/dL (30-55); Mean Corpuscular Hemoglobin 32.2 pg (27-33); Mean Corpuscular Volume 95.3 fl (82-101); Nucleated Red Blood Cells % 0 %; Platelet Count 141 10^3/cmm (157-399); Red Blood Count 3.79 10^6/uL (3.85-5.65); White Blood Count 5.50 10^3/uL (3.29-11.43)
[2025-04-13 04:10] LABS: Alanine Aminotransferase 17 U/L (0-41); Albumin Level 4.2 g/dL (3.5-5.2); Alkaline Phosphatase 47 U/L (40-130); Anion Gap 14.8 (5-19); Aspartate Amino Transferase 22 U/L (0-40); Blood Urea Nitrogen 13 mg/dL (8-23); Calcium 9.2 mg/dL (8.5-10.5); Carbon Dioxide 27 mmol/L (22-29); Chloride 94 mmol/L (98-107); Creatinine Clr Calc Pharmacy 62.7792; Globulin 2.1 g/dL (1.3-4.6); Glucose 124 mg/dL (65-115); Osmolality Calculated 276 mOsm/kg (285-295); Potassium 3.8 mmol/L (3.5-5.1); Sodium 132 mmol/L (136-145); Total Protein 6.3 g/dL (6.6-8.7)
[2025-04-13] MEDS: LOSARTAN 25 MG TABLET PO (05:33)
--- NOTE | 2025-04-13 08:26 | XACV_ITS ---
Exam Room: 2 Ht: 160 cm Wt: 86 kg BSA: 1.99 m2 Gender: Male : 1935 Any Known Allergies: Other Exam Priority: Routine Procedure(s): Procedure Description: Diagnostic procedure Procedure Description: Coronary Angiography IRASEMA, Divine; Diagnostic Cath Status: Elective Diagnostic Findings * Left Main: minimal 30% stenosis, MISAEL: 3 flow. * Distal Left Anterior Descending: minimal 30% stenosis, MISAEL: 3 flow. * Proximal Right Coronary Artery: moderate 50% stenosis, MISAEL: 3 flow. * Mid Right Coronary Artery to Distal Right Coronary Artery: luminal irregularities 20% stenosis, MISAEL: 3 flow. * Proximal Circumflex: moderate 50% stenosis, MISAEL: 3 flow. * Ramus: mild 40% stenosis, MISAEL: 3 flow. * Posterior Descending Right: moderate 50% stenosis, MISAEL: 3 flow. * First Obtuse Marginal Branch Segment: moderate 50% stenosis, MISAEL: 3 flow. * Coronary angiography shows right dominance. * Right innominate artery angiogram was performed since J-wire was not crossing from right subclavian artery into innominate artery. 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 Conclusions 1. There is moderate coronary artery disease with four vessel disease. Recommendations * Continue current medical management and risk factor modification. Diagnostic RX Recommendation: medical therapy and/or counseling Pressures Phase:Rest AO : 143 / 82 ( 107 ) @ 11:11:00 AM 139 / 73 ( 101 ) @ 11:16:00 AM Clinical Evaluation EBL: 5mL-10mL Procedural Details Procedure Consent Obtained. Admit Source: In Patient. Pre-Procedure Time Out. Identified patient by full name and date of as verbalized by the patient/guarantor. Does the consent match the physician's order: Yes. Accurate & Complete Informed Consent: Yes. Inpatient/Outpatient History & Physical on Chart: Yes. If H&P is completed, is and addenduem needed: No; If yes, is the addendum complete: N/A. Visualize and Verify Site with Patient/Guarantor: N/A. Relevant Radiology Images available: Yes. The risks, benefits, and alternatives of sedation and/or procedure were discussed by physician. The patient agrees to continue. Procedure started. [facility] Clinical Fraility Score: 5: Mildly Frail. International Trade Specialist Indications: ACS > 24 hours. Chest Pain Symptom Assessment: Typical Angina Symptoms. Correct patient, site and procedure confirmed by cath team. Current diagnosis: Unstable angina. PERRLA. Strong, equal hand community theater actor bilaterally. Lungs clear x 5 lobes. IV Site on Arrival: 20 gauge in the left anticubital. IV Fluids: 0.9% NaCl at KVO. 0 mL infused prior to labor trainer. Pre Procedural Pulses: bilateral radial was 2+. Pre Procedural Pulses: bilateral posterior tibial was Doppled. Pre Procedural Pulses: bilateral dorsalis pedis was Doppled. Oxygen started at 2liters/min via nasal canula. right radial was prepped with chloroprep then draped in the usual sterile fashion. right groin was prepped with chloroprep then draped in the usual sterile fashion. Physician notified. Baseline sample Acquired. HR: 73 BPM. Physician arrived. Physician scrubbed in. Immediate Pre-Procedure Time Out. Correct Patient: Yes; Correct Procedure: Yes; Correct Site: Yes; Correct Patient Position: Yes; Correct Supplies: Yes; Dried Flammable Prep: Yes; Blood Products Available: No;. Lidocaine 1% infiltrated to the right radial. Arterial access obtained. A 5 egyptian TIG catheter in over wire. Exchange wire out. Hand injection through catheter. Glidewire in through catheter. Catheter advanced over glidewire. Glidewire out. Multiple views taken of right coronary artery. Catheter removed over the exchange wire. A 5 egyptian Isra catheter in over wire. Multiple views taken of left coronary artery. Catheter removed over the exchange wire. Physician scrubbed out. A TR Band was successful obtaining hemostatsis at the Right Radial artery insertion site. Post Procedure: Pulses reassessed and unchanged. PERRLA. Strong, equal hand community theater actor bilaterally. No VTE prophylaxis required. Medication's Wasted: Lidocaine 1% = 18 mL. Medication's Wasted: Nitro = 49.8 mg. Medication's Wasted: Heparin = 1000 unit. Medication's Wasted: Other = Fentanyl 75mcg, Versed 1 mg. Total IV fluids: 25 mL. Post-op diagnosis: Multi-vessel non-obstructive CAD. Complications: None. Estimated blood loss: 5mL-10mL. Circulation: W/N/L, pulses unchanged. Nausea/Vomiting: No. Responsiveness - Normal response to verbal stimuli; alert and oriented, PERRLA. Airway - Unaffected, no intervention required; spontaneous ventilation. Procedure completed. Patient transferred by bed to 1st floor. Vital chart was stopped. Access Site Site: Right Radial artery Sheath Size: 6 Fr Hemostasis Method: TR Band Hemostasis Success: Successful Procedure Medications Start: 9:47 AM Stop: 9:47 AM Medication: Versed Amount: 1 mg Route: I.V. Start: 9:47 AM Stop: 9:47 AM Medication: Fentanyl Amount: 25 mcg Route: I.V. Start: 10:04 AM Stop: 10:04 AM Medication: Nitrogylcerin Amount: 200 mcg Route: I.A. Start: 10:26 AM Stop: 10:26 AM Medication: Heparin Amount: 5000 units Route: I.V. I, the attending physician, have reviewed and verified all procedure medications. Yes, all medications given per verbal order History/Risk Factors Hypertension: No Dyslipidemia: No Peripheral Arterial Disease (PAD): No Myocardial Infarction (VT): No Obesity: No Renal Disease: No Prior Interventions PCI: Yes CABG: No Valve Surgery: No Report Signatures Finalized by Domitila Haskins MD on 04/21/2025 08:53 PM
--- NOTE | 2025-04-13 09:20 | PC.NURSE ---
to cardiac shellfish processing laborer via bed at this time
--- NOTE | 2025-04-13 09:48 | W.PM.OPSUD ---
Surgery/Procedure H&P Update DATE OF PROCEDURE: April 13, 2025 DATE H&P PERFORMED: 04/12/25 H&P UPDATE INFORMATION: I have reviewed H&P completed within last 30 days, I have examined patient prior to procedure and No changes to prior documentation PREOP DIAGNOSIS: Unstable angina PRIMARY INDICATION FOR PROCEDURE: Chest pain which has increased in frequency and duration suggestive of unstable angina patient with prior history of coronary artery disease and multiple stents PLANNED PROCEDURE: Left heart cath/PCI if indicated PATIENT REASSESSED PRIOR TO SEDATION, WITH NO CHANGE NOTED: Yes PHYSICAL EXAM: alert, oriented x 3, clear to auscultation bilaterally, regular rate & rhythm and operative site marked AIRWAY EVAL/ANESTHESIA PLAN: ASA II, Risks, benefits & alternatives of sedation and/or procedure discussed and Patient agrees to continue as planned ADDITIONAL INFORMATION: All risk-benefit and alternative for the procedure has been explained to the patient. Patient understand 2% risk of stroke major bleed. Patient restand 5% risk of minor bleeding oozing infection hematoma contrast-induced nephropathy urgent or emergent vascular or bypass surgery. Patient agrees to it and would like to proceed with it.
--- NOTE | 2025-04-13 10:42 | P.PN_ITS ---
Subjective 2 Subjective: Patient is feeling better denies any complaint and he has bruising all over the body given his age and antiplatelet use. Hemoglobin stable Vitals/I&O/Wt Last Vital Signs Temp 98.0 F 04/13/25 07:28 Pulse 78 04/13/25 07:28 Resp 15 04/13/25 07:28 BP 114/67 04/13/25 07:28 Pulse Ox 95 04/13/25 07:28 O2 Del Method Room Air 04/13/25 03:21 04/12/25 04/13/25 04/13/25 22:59 06:59 14:59 Intake Total 0 / 0 Output Total 600 / 600 Balance -600 / -173.75 0 / 0 Weight last 48 hrs Weight 189 lb 13.088 oz Weight 195 lb 1.745 oz Weight 169 lb 12.095 oz Weight 165 lb Physical Exam 2 Const: COMMON NORMALS: alert OTHER: GENERAL: Patient is alert, awake and oriented x3. HEART: Regular S1 and S2. No murmur, rub or gallop. LUNGS: Clear to auscultate bilaterally. CENTRAL NERVOUS SYSTEM: Grossly nonfocal. EXTREMITIES: Lower extremities with out edema bilaterally. Resp: COMMON NORMALS: clear to auscultation bilaterally AUSCULTATION: clear to auscultation bilaterally Neuro: SENSORIUM/ORIENTATION: Yes alert Data 04/14/25 03:11 04/14/25 03:11 A&P Assessment and plan 1. Aspiration into airway: 2. Chest pain: 3. Coronary artery disease: Plan: Patient had a left heart catheterization and noted to have no significant obstructive disease patent previously placed stent patient has distal small vessel disease and small branch disease not amenable to intervention therefore medical management was optimized and suggested. Continue aspirin statin beta- chela, can hold clopidogrel and aspirin if needed for the bruising. Continue isosorbide mononitrate 30 mg once a day. It may can be increased to twice a day. PDMP PDMP Reviewed: Not Reviewed Attestations 2 Medical Necessity Statement*: Patient require continuation hospitalization for above defined care Coding Level of Care Code Acute Code for Chg Fwd Diagnoses Aspiration into airway T17.908A Chest pain R07.9 Coronary artery disease I25.10
--- NOTE | 2025-04-13 10:53 | PC.NURSE ---
received from cardiac director of laboratory operations via bed at 1050.report received.pt is alert and awake and oriented x 4.denies pain at present.sr on monitor.right wrist with 2 tr bands on and intact and inflated.soft bruising noted proximal to 2nd tr band.vss.pt instructed in activity restrictions s/p radial artery procedure...and instructed to notify staff for any bleeding,pain,numbness,sob or for any concerns at all.pt verb understanding of instructions
--- NOTE | 2025-04-13 12:24 | CTR_ITS ---
PROCEDURE INFORMATION: Exam: CT Chest Without Contrast; Diagnostic Exam date and time: 04/13/2025 12:39 PM Age: 89 years old Clinical indication: Cough and dyspnea; Additional info: Aspiration TECHNIQUE: Imaging protocol: Diagnostic computed tomography of the chest without contrast. Radiation optimization: All CT scans at this facility use at least one of these dose optimization techniques: automated exposure control; mA and/or kV adjustment per patient size (includes targeted exams where dose is matched to clinical indication); or iterative reconstruction. COMPARISON: CR (CHEST, ) 04/11/2025 7:31 PM RADIATION DOSE METRICS: Total DLP (mGy-cm): 484.44 FINDINGS: Thyroid: Thyroid is atrophic and otherwise unremarkable. Lungs: Faint tree-in-bud nodularity along the periphery of bilateral upper lobes. Areas of mild mucous plugging in the lower lobes with bronchial wall thickening. No consolidation. Pleural spaces: Unremarkable. No pneumothorax. No pleural effusion. Heart: Unremarkable. No cardiomegaly. No pericardial effusion. Coronary arteries: Severe coronary artery calcifications. Esophagus: Patulous esophagus with retained debris to the level of the mid esophagus. Lymph nodes: Calcified mediastinal and bilateral hilar lymph nodes. No mediastinal or hilar lymphadenopathy by size criteria within the limitations of an unenhanced examination. Mildly enlarged 1.3 cm right axillary lymph node. Vasculature: The thoracic aorta is nonaneurysmal with scattered atherosclerotic calcifications. Tortuous thoracic aorta. Diaphragm: Small sliding-type hiatal hernia. Spleen: Calcified splenic granulomas. Kidneys: Possible excreted contrast within the renal collecting systems from previous contrast administration. Bones/joints: Advanced degenerative changes of the visualized spine. Mildly exaggerated thoracic kyphosis. Diffuse osseous demineralization. No acute osseous findings. Advanced degenerative changes of bilateral glenohumeral joints. Soft tissues: Unremarkable. Other findings: Calcified granulomas bilaterally. CT/CT chest wo con [id number] IMPRESSION: 1. No consolidative airspace disease. 2. Faint tree-in-bud nodularity in bilateral upper lobes may represent atypical infection/inflammation. 3. Patulous esophagus with retained debris can be seen with esophageal dysmotility and/or gastroesophageal reflux. Findings may increase the risk of aspiration. 4. Small hiatal hernia. 5. Severe coronary artery calcifications. 6. Mildly enlarged right axillary lymph node is nonspecific. Consider follow-up imaging in 6-12 weeks to document stability.
[2025-04-13 13:52] LABS: Hematocrit 32.6 % (37-53); Hemoglobin 11.10 g/dL (11.27-16.99); Mean Corpuscular HGB Conc 34.0 g/dL (30-55); Mean Corpuscular Hemoglobin 32.7 pg (27-33); Mean Corpuscular Volume 96.2 fl (82-101); Nucleated Red Blood Cells % 0 %; Platelet Count 138 10^3/cmm (157-399); Red Blood Count 3.39 10^6/uL (3.85-5.65); White Blood Count 4.92 10^3/uL (3.29-11.43)
[2025-04-13 14:06] LABS: Lactic Sepsis W/Reflex 1.7 mmol/L (0.5-2.2)
--- NOTE | 2025-04-13 14:06 | P.PN_ITS ---
Subjective 2 Subjective: - Patient was seen this morning - He is status post coronary angiography - Mean arterial pressure is about 65, he art rates in the 110s, he is alert and oriented x 3, follow commands denies any chest pain, palpitations, no lightheadedness - Family members do report wheezing, for the last 6 months, there was concern for emphysema through primary care physician, - He has had a chronic cough - Denies any choking, no coughing - During my conversation he sitting up i n bed, eating his lunch, with sips, he does start developing coughing episodes - Discussed with family my highest suspi cion for aspiration - Will have speech therapy see patient, CT chest, aspiration precautions - Currently he denies any chest pain, no palpitations, no shortness of breath, no lightheadedness Vitals/I&O/Wt Last Vital Signs Temp 98.0 F 04/13/25 07:28 Pulse 126 H 04/13/25 12:00 Resp 16 04/13/25 12:00 BP 84/50 04/13/25 12:00 Pulse Ox 91 04/13/25 12:00 O2 Del Method Room Air 04/13/25 03:21 04/12/25 04/13/25 04/13/25 22:59 06:59 14:59 Intake Total 486.667 / 486.667 Output Total 600 / 600 150 / 150 Balance -600 / -173.75 336.667 / 336.667 Weight last 48 hrs Weight 86.1 kg Weight 88.5 kg Weight 77 kg Weight 74.843 kg Physical Exam 2 Const: COMMON NORMALS: no acute distress and patient oriented x3 Resp: COMMON NORMALS: normal respiratory effort, No retractions and No use of accessory muscles AUSCULTATION: crackles and wheezes Cardio: COMMON NORMALS: regular rate, regular rhythm, S1 normal heart sound present and S2 normal heart sound present RATE: regular rate RHYTHM: r egular rhythm HEART SOUNDS: S1 normal heart sound present and S2 normal heart sound present GI: COMMON NORMALS: Normal to inspection, nondistended, normoactive bowel sounds present and non-tender Extremity: COMMON NORMALS: no pedal edema Neuro: COMMON NORMALS: patient oriented x3 Psych: COMMON NORMALS: mental status grossly normal Data 04/13/25 13:34 04/13/25 02:49 A&P Assessment and plan 1. Coronary artery disease: 2. 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 Cardiac echo CONCLUSIONS Normal LV size and ejection fraction of 60%. Mild calcific left-ventricular hypertrophy.no regional wall motion abnormalities. Grade I/IV diastolic dysfunction (abnormal relaxation filling pattern), normal to mildly elevated filling pressures. Mildly increased left atrial size. 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 Moderate eccentric mitral regurgitation. Moderate mitral annular calcification. Thickened mitral valve. Trace tricuspid valve regurgitation. Thickened aortic valve. Trace pulmonary valve regurgitation. There is no pericardial effusion. There are no intracardiac masses. No similar previous studies are available for comparison - Must continue to monitor and optimize - Cardiology consulted - Status post coronary angiogram #2 Wheezing, cough - Possible aspiration -Dysphagia diet -CT chest -Repeat blood work Hypotension -Receiving fluid bolus -Lactic acid -Relatively asymptomatic, monitor GI and DVT prophylaxis in place PDMP PDMP Reviewed: Not Reviewed Attestations 2 Medical Necessity Statement*: Patient requires hospitalization for chest pain, wheezing, hypotension Diagnoses Coronary artery disease I25.10 Chest pain R07.9
[2025-04-13 14:07] LABS: Alanine Aminotransferase 16 U/L (0-41); Albumin Level 3.6 g/dL (3.5-5.2); Alkaline Phosphatase 42 U/L (40-130); Anion Gap 13.0 (5-19); Aspartate Amino Transferase 20 U/L (0-40); Blood Urea Nitrogen 14 mg/dL (8-23); Calcium 8.4 mg/dL (8.5-10.5); Carbon Dioxide 25 mmol/L (22-29); Chloride 95 mmol/L (98-107); Creatinine Clr Calc Pharmacy 61.9125; Globulin 1.9 g/dL (1.3-4.6); Glucose 227 mg/dL (65-115); Osmolality Calculated 276 mOsm/kg (285-295); Potassium 4.0 mmol/L (3.5-5.1); Sodium 129 mmol/L (136-145); Total Protein 5.5 g/dL (6.6-8.7)
--- NOTE | 2025-04-13 14:08 | PC.NURSE ---
1130..dr magallanes notified of increased swelling in right forearm...also that bp has decreased and heart rate increased.he came to evaluate pt.dr magallanes removed 2nd tr band...then first tr band ...held artery while he milked the hematoma area.small amt of blood was expelled and forearm became much softer.1st tr band reapplied.2nd tr band left off.300 cc ns bolus ordered for decreased bp..this was run off main hanging ivf's.
--- NOTE | 2025-04-13 14:18 | PC.NURSE ---
dr magallanes notified of low blood pressure readings...and elevated heart rate. cbc ordered and 500 cc ns bolus.bp came up and hr came down as bolus infused
[2025-04-13] MEDS: cefTRIAXone 1,000 mg SDV 1000 MG IVP (14:58)
--- NOTE | 2025-04-13 17:50 | PC.NURSE ---
bp and hr stable.tr band slowly deflated and eventually removed at 1730.soft bruise measures 14 cm L x 15 cm w.pt instructed in activity restrictions s/p tr band removal..and instructed to notify staff for any bleeding,numbness,pain,or for any concerns at all.pt verb understanding of instructions
[2025-04-14 01:10] VITALS: BP 151/79; PULSE 76; RESP 17; TEMP 36.9
[2025-04-14] MEDS: heparin 5,000 unit/mL INJ 1 mL 5000 UNIT SUBCUT ×2 (01:48→13:24)
[2025-04-14 02:20] VITALS: BP 151/79; PULSE 76; RESP 17; TEMP 36.9
[2025-04-14 03:30] LABS: Hematocrit 32.5 % (37-53); Hemoglobin 11.30 g/dL (11.27-16.99); Mean Corpuscular HGB Conc 34.8 g/dL (30-55); Mean Corpuscular Hemoglobin 33.4 pg (27-33); Mean Corpuscular Volume 96.2 fl (82-101); Nucleated Red Blood Cells % 0 %; Platelet Count 137 10^3/cmm (157-399); Red Blood Count 3.38 10^6/uL (3.85-5.65); White Blood Count 7.25 10^3/uL (3.29-11.43)
[2025-04-14 03:52] LABS: Alanine Aminotransferase 17 U/L (0-41); Albumin Level 3.9 g/dL (3.5-5.2); Alkaline Phosphatase 44 U/L (40-130); Anion Gap 16.1 (5-19); Aspartate Amino Transferase 24 U/L (0-40); Blood Urea Nitrogen 13 mg/dL (8-23); Calcium 8.7 mg/dL (8.5-10.5); Carbon Dioxide 25 mmol/L (22-29); Chloride 95 mmol/L (98-107); Creatinine Clr Calc Pharmacy 61.9125; Globulin 2.1 g/dL (1.3-4.6); Glucose 158 mg/dL (65-115); Osmolality Calculated 277 mOsm/kg (285-295); Potassium 4.1 mmol/L (3.5-5.1); Sodium 132 mmol/L (136-145); Total Protein 6.0 g/dL (6.6-8.7)
[2025-04-14] MEDS: LOSARTAN 25 MG TABLET PO (07:09)
[2025-04-14 08:00] VITALS: BP 150/75; PULSE 70; RESP 22; TEMP 36.7; O2SAT 96
--- NOTE | 2025-04-14 10:25 | PC.NURSE ---
right wrist (cath site) is bruised from wrist to distal antecubital area.bruising is soft.right hand is warm to touch and with brisk capillary refill.palpable radial pulse noted.no restriction in movement noted.pt denies numbness or tingling in right extremity
[2025-04-14 12:00] VITALS: BP 100/63; PULSE 74; RESP 20; O2SAT 97
[2025-04-14] MEDS: cefTRIAXone 1,000 mg SDV 1000 MG IVP (13:25)
--- NOTE | 2025-04-14 14:57 | P.PN_ITS ---
Subjective 2 Subjective: Patient was seen this morning, currently alert oriented x 3, following all commands does report persistent cough, no nausea, no vomiting, no lightheadedness, no dizziness Vitals/I&O/Wt Last Vital Signs Temp 98.0 F 04/14/25 08:00 Pulse 74 04/14/25 12:00 Resp 20 H 04/14/25 12:00 BP 100/63 04/14/25 12:00 Pulse Ox 97 04/14/25 12:00 O2 Del Method Room Air 04/14/25 01:10 04/13/25 04/14/25 04/14/25 22:59 06:59 14:59 Intake Total 1820.833 / 2307.500 600 / 600 Output Total 700 / 850 330 / 1180 Balance 1120.833 / 1457.500 -330 / 1127.500 600 / 600 Weight last 48 hrs Weight 86.1 kg Physical Exam 2 Const: COMMON NORMALS: no acute distress and patient oriented x3 Resp: COMMON NORMALS: normal respiratory effort, No retractions, No use of accessory muscles and clear to auscultation bilaterally AUSCULTATION: clear to auscultation bilaterally Cardio: COMMON NORMALS: regular rate, regular rhythm, S1 normal heart sound present and S2 normal heart sound present RATE: regular rate RHYTHM: r egular rhythm HEART SOUNDS: S1 normal heart sound present and S2 normal heart sound present GI: COMMON NORMALS: Normal to inspection, nondistended, normoactive bowel sounds present and non-tender Extremity: COMMON NORMALS: no pedal edema Neuro: COMMON NORMALS: patient oriented x3 Psych: COMMON NORMALS: mental status grossly normal Data 04/14/25 03:11 04/14/25 03:11 A&P Assessment and plan 1. Coronary artery disease: 2. 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 Cardiac echo CONCLUSIONS Normal LV size and ejection fraction of 60%. Mild calcific left-ventricular hypertrophy.no regional wall motion abnormalities. Grade I/IV diastolic dysfunction (abnormal relaxation filling pattern), normal to mildly elevated filling pressures. Mildly increased left atrial size. 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 Moderate eccentric mitral regurgitation. Moderate mitral annular calcification. Thickened mitral valve. Trace tricuspid valve regurgitation. Thickened aortic valve. Trace pulmonary valve regurgitation. There is no pericardial effusion. There are no intracardiac masses. No similar previous studies are available for comparison - Must continue to monitor and optimize - Cardiology consulted - Status post coronary angiogram, no obstructive CAD - Postoperative hematoma, right arm, has good radial pulses, good cap refill #2 Wheezing, cough - Possible aspiration -Dysphagia diet -CT chest CT/CT chest wo con [id number] IMPRESSION: 1. No consolidative airspace disease. 2. Faint tree-in-bud nodularity in bilateral upper lobes may represent atypical infection/inflammation. 3. Patulous esophagus with retained debris can be seen with esophageal dysmotility and/or gastroesophageal reflux. Findings may increase the risk of aspiration. 4. Small hiatal hernia. 5. Severe coronary artery calcifications. 6. Mildly enlarged right axillary lymph node is nonspecific. Consider follow-up imaging in 6-12 weeks to document stability. Plan - Modified barium swallow - Rocephin Hypotension, resolved GI and DVT prophylaxis in place PDMP PDMP Reviewed: Not Reviewed Attestations 2 Medical Necessity Statement*: Patient requires hospitalization for wheezing, possible aspiration Diagnoses Coronary artery disease I25.10 Chest pain R07.9
[2025-04-14 16:00] VITALS: BP 117/85; PULSE 70; RESP 17; TEMP 36.7; O2SAT 96
--- NOTE | 2025-04-14 19:19 | PC.NURSE ---
pt found sitting on floor in front of chair in room,at 1840.pt had been sitting in chair and states i slipped out .did not hit head.assisted to feet.denies pain.vss.dr flaherty notified and he came and examined pt.no orders received
[2025-04-14 19:54] VITALS: BP 135/80; PULSE 74; RESP 17; TEMP 36.4; O2SAT 98
[2025-04-15] VITALS: BP 135/83; PULSE 69; RESP 17; TEMP 36.4; O2SAT 95
[2025-04-15] MEDS: heparin 5,000 unit/mL INJ 1 mL 5000 UNIT SUBCUT (01:42)
[2025-04-15 02:00] VITALS: BP 135/83; PULSE 69; RESP 17; TEMP 36.4
[2025-04-15 02:35] LABS: Hematocrit 33.1 % (37-53); Hemoglobin 11.20 g/dL (11.27-16.99); Mean Corpuscular HGB Conc 33.8 g/dL (30-55); Mean Corpuscular Hemoglobin 32.0 pg (27-33); Mean Corpuscular Volume 94.6 fl (82-101); Nucleated Red Blood Cells % 0 %; Platelet Count 129 10^3/cmm (157-399); Red Blood Count 3.50 10^6/uL (3.85-5.65); White Blood Count 5.20 10^3/uL (3.29-11.43)
[2025-04-15 03:00] LABS: Alanine Aminotransferase 15 U/L (0-41); Albumin Level 3.9 g/dL (3.5-5.2); Alkaline Phosphatase 41 U/L (40-130); Aspartate Amino Transferase 23 U/L (0-40); Blood Urea Nitrogen 14 mg/dL (8-23); Calcium 8.9 mg/dL (8.5-10.5); Carbon Dioxide 26 mmol/L (22-29); Chloride 96 mmol/L (98-107); Creatinine Clr Calc Pharmacy 61.9125; Globulin 1.9 g/dL (1.3-4.6); Glucose 76 mg/dL (65-115); Osmolality Calculated 275 mOsm/kg (285-295); Sodium 133 mmol/L (136-145); Total Protein 5.8 g/dL (6.6-8.7)
[2025-04-15 03:05] LABS: Anion Gap 14.9 (5-19); Potassium 3.9 mmol/L (3.5-5.1)
[2025-04-15 04:00] VITALS: BP 158/86; PULSE 74; RESP 17; TEMP 36.5; O2SAT 91
[2025-04-15] MEDS: LOSARTAN 25 MG TABLET PO (05:25)
[2025-04-15] MEDS: HYDROcodone-acetaminophen 10-325 mg Tablet PO ×2 (06:54→14:09)
[2025-04-15 07:49] VITALS: BP 98/53; PULSE 97; RESP 16; TEMP 36.6; O2SAT 93
--- NOTE | 2025-04-15 08:11 | FL_ITS ---
WS: [id number] Exam: FL barium swallow modifd [id number] Date/Time of Exam: 04/15/2025 8:11 AM Reason For Exam: Oral dysphagia Fluoroscopy time: 2min [id number] minutes # of spot films: Modified barium swallow study was performed in conjunction with the speech therapy service. The patient experienced mild penetration into the laryngeal inlet when ingesting thin liquid barium solution. The patient tolerated the remaining barium mixture foodstuffs without aspiration or penetration. The patient ingested a barium tablet without complication. FL/FL barium swallow modifd [id number] IMPRESSION: 1. Mild penetration into the laryngeal inlet when ingesting thin liquid barium. No aspiration identified. A separate report with detailed recommendations will follow from the speech the rapy service.
--- NOTE | 2025-04-15 09:17 | PC.CHAP ---
Pastoral Care Encounter/Spiritual Assessment Type of Contact [] Declined [employer] visit [] Patient/Family/Request visit [] Outpatient visit [] Follow-up visit [] Physician referral [] Code/Alert [x] Routine visit [] Staff referral [] Actively dying [] Patient sleeping [] Family support [] [] Out of room [] Palliative care [] [] Receiving care in room [] Pre-surgical visit [] Trauma [] Long length of stay [] ICU visit [] Other: Relational/Emotional Strength [] Patient feels connected with others/family/visitors/staff [] Distress [] Loneliness/isolation [] Abandonment Spirituality of Patient [x] Person of Mellisa [] Attends Jain of their Mellisa [x] Believes in Prayer [] Reads Bible or Yazdanism materials [] There are Spiritual issues to be addressed [employer] Interventions [x] Prayer [x] Active listening [] Non-anxious presence [] Spiritual/emotional support [] Crisis/trauma care [] Spiritual counseling [] Bereavement support [] Provided bereavement packet [x] Provided Bible/devotional materials [] Provided toy/stuffed animal, coloring book to patient or family member [] Provided Communion [] Anointing/[place] [] Salvation [x] Completed spiritual assessment [] Other: Impact on Illness or Injury [] Angry [] Fearful [] Anxious [] Often cries [] Exhaustion [] Unable to work [] Unable to attend druze [] Unable to walk/stand [] Unable to read [] Unable to drive [] Unable to eat/drink [] Unable to sleep [] Unable to be with family [] Patient intubated [] Other: Summary Time spent with patient 15 min
[2025-04-15 12:00] VITALS: BP 98/53; PULSE 92; RESP 22; O2SAT 98
--- NOTE | 2025-04-15 13:21 | PM.PN ---
Vitals/I&O/Wt Last Vital Signs Temp 97.9 F 04/15/25 07:49 Pulse 97 04/15/25 07:49 Resp 16 04/15/25 07:49 BP 98/53 04/15/25 07:49 Pulse Ox 93 04/15/25 07:49 O2 Del Method Nasal Cannula 04/15/25 04:00 04/14/25 04/15/25 04/15/25 22:59 06:59 14:59 Output Total 375 / 975 600 / 975 Balance -375 / -375 -600 / -375 Weight last 48 hrs Weight 195 lb 1.745 oz Data 04/15/25 02:20 04/15/25 02:20 A&P PDMP PDMP Reviewed: Not Reviewed Coding Level of Care Code Acute Code for Chg [place]
[2025-04-15 15:28] VITALS: PULSE 85; RESP 16; TEMP 36.6; O2SAT 92
--- NOTE | 2025-04-15 18:04 | P.DS_ITS ---
Discharge Providers Date of Admission: 04/13/25 16:35 Date of Discharge: April 15, 2025 Attending Provider at Admission: Vicky Murguia MD Attending Provider at Discharge: Herbert Patel MD Primary Care Provider: Tomás Juárez DO Diagnoses at Discharge Discharge Diagnosis 1. Aspiration into airway: 2. Chest pain: 3. 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 Cardiac echo CONCLUSIONS Normal LV size and ejection fraction of 60%. Mild calcific left-ventricular hypertrophy.no regional wall motion abnormalities. Grade I/IV diastolic dysfunction (abnormal relaxation filling pattern), normal to mildly elevated filling pressures. Mildly increased left atrial size. 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 Moderate eccentric mitral regurgitation. Moderate mitral annular calcification. Thickened mitral valve. Trace tricuspid valve regurgitation. Thickened aortic valve. Trace pulmonary valve regurgitation. There is no pericardial effusion. There are no intracardiac masses. No similar previous studies are available for comparison - Cardiology consulted - Status post coronary angiogram, no acute interventions -Discharged with close follow-up with cardiology as outpatient - Postoperative hematoma, right arm, has good radial pulses, good cap refill Wheezing, cough - Possible aspiration -Dysphagia diet -CT chest CT/CT chest wo con [id number] IMPRESSION: 1. No consolidative airspace disease. 2. Faint tree-in-bud nodularity in bilateral upper lobes may represent atypical infection/inflammation. 3. Patulous esophagus with retained debris can be seen with esophageal dysmotility and/or gastroesophageal reflux. Findings may increase the risk of aspiration. 4. Small hiatal hernia. 5. Severe coronary artery calcifications. 6. Mildly enlarged right axillary lymph node is nonspecific. Consider follow-up imaging in 6-12 weeks to document stability. Plan - Modified barium swallow FL/FL barium swallow modifd [id number] IMPRESSION: 1. Mild penetration into the laryngeal inlet when ingesting thin liquid barium. No aspiration identified. Will discharge patient with close follow-up with general surgery for consideration of EGD Discharge dysphagia level 6 diet, mildly thickened, aspiration precautions Discharge on p.o. antibiotics Physical Exam Const: COMMON NORMALS: no acute distress and patient oriented x3 Resp: COMMON NORMALS: normal respiratory effort, No retractions, No use of accessory muscles and clear to auscultation bilaterally AUSCULTATION: clear to auscultation bilaterally Cardio: COMMON NORMALS: regular rate, regular rhythm, S1 normal heart sound present and S2 normal heart sound present RATE: regular rate RHYTHM: regular rhythm HEART SOUNDS: S1 normal heart sound present and S2 normal heart sound present GI: COMMON NORMALS: Normal to inspection, nondistended, normoactive bowel sounds present and non-tender Extremity: COMMON NORMALS: no pedal edema Neuro: COMMON NORMALS: patient oriented x3 Psych: COMMON NORMALS: mental status grossly normal Discharge Data Studies Completed and Pending Completed Studies During Hospitalization Category Date Time Status CT chest wo con [id number] Routine Cat Scan 04/13/25 12:24 Completed Cardiac Stress Test MIBI [Sestamibi Stress Test Request Exams 04/12/25 01:11 Draft ] Routine FL barium swallow modifd [id number] Routine Exams 04/15/25 08:11 Completed XR chest 1V portable [id number] Stat Exams 04/11/25 19:12 Completed NM kirk perf SPECT r/s* [id number] Routine Nuc Med 04/12/25 01:16 Completed CV. echo complete* [id number] Routine Ultrasound 04/12/25 01:11 Completed Pending at discharge Category Date Time Status APPLICATIONS SUPPORT LEAD request for service Routine Exams 04/13/25 08:26 Taken Radiology Impressions Chest X-Ray 04/11/25 19:12 IMPRESSION: 1. Hazy opacities in the bilateral lung apices may represent superimposition of structures, atelectasis, scarring or less likely infectious/inflammatory process. 2. Nodular opacity in the left lung base with apparent spiculated margins. This may represent underlying pulmonary nodule versus atelectasis. Recommend chest CT to exclude underlying pulmonary nodule. Chest CT 04/13/25 12:24 IMPRESSION: 1. No consolidative airspace disease. 2. Faint tree-in-bud nodularity in bilateral upper lobes may represent atypical infection/inflammation. 3. Patulous esophagus with retained debris can be seen with esophageal dysmotility and/or gastroesophageal reflux. Findings may increase the risk of aspiration. 4. Small hiatal hernia. 5. Severe coronary artery calcifications. 6. Mildly enlarged right axillary lymph node is nonspecific. Consider follow-up imaging in 6-12 weeks to document stability. Modified Barium Swallow 04/15/25 08:11 IMPRESSION: 1. Mild penetration into the laryngeal inlet when ingesting thin liquid barium. No aspiration identified. A separate report with detailed recommendations will follow from the speech therapy service. Laboratory Results WBC 5.20 10^3/uL (3.29-11.43) 04/15/25 02:20 Corrected WBC Cancelled 04/13/25 13:34 RBC 3.50 10^6/uL (3.85-5.65) L 04/15/25 02:20 Hgb 11.20 g/dL (11.27-16.99) L 04/15/25 02:20 Hct 33.1 % (37-53) L 04/15/25 02:20 MCV 94.6 fl (82-101) 04/15/25 02:20 MCH 32.0 pg (27-33) 04/15/25 02:20 MCHC 33.8 g/dL (30-55) 04/15/25 02:20 RDW 13.3 % (12.1-15.1) 04/15/25 02:20 Plt Count 129 10^3/cmm (157-399) L 04/15/25 02:20 MPV 9.6 fL (7.4-10.4) 04/15/25 02:20 Gran % Cancelled 04/13/25 13:34 Neut % (Auto) 50.5 % 04/15/25 02:20 Lymph % (Auto) 30.6 % 04/15/25 02:20 [place] % (Auto) 12.5 % 04/15/25 02:20 Eos % (Auto) 5.6 % 04/15/25 02:20 Baso % (Auto) 0.4 % 04/15/25 02:20 Neut # (Auto) 2.63 10^3/uL (1.8-7.7) 04/15/25 02:20 Lymph # (Auto) 1.6 10^3/uL (0.8-4.8) 04/15/25 02:20 [place] # (Auto) 0.7 10^3/uL (0.2-0.9) 04/15/25 02:20 Eos # (Auto) 0.3 10^3/uL (0.0-0.8) 04/15/25 02:20 Baso # (Auto) 0.0 10^3/uL (0.0-0.1) 04/15/25 02:20 Absolute Gran (auto) Cancelled 04/13/25 13:34 Nucleated RBC % (auto) 0 % 04/15/25 02:20 Nucleated RBCs # 0.0 /100WBC 04/15/25 02:20 Sodium 133 mmol/L (136-145) L 04/15/25 02:20 Potassium 3.9 mmol/L (3.5-5.1) 04/15/25 02:20 Chloride 96 mmol/L (98-107) L 04/15/25 02:20 Carbon Dioxide 26 mmol/L (22-29) 04/15/25 02:20 Anion Gap 14.9 (5-19) 04/15/25 02:20 BUN 14 mg/dL (8-23) 04/15/25 02:20 Creatinine 0.6 mg/dL (0.7-1.2) L 04/15/25 02:20 GFR Calculation Not Reportable 04/15/25 02:20 Glucose 76 mg/dL (65-115) 04/15/25 02:20 POC Glucose 144 mg/dL (70-110) H 04/15/25 10:56 Estimat Average Glucose 177 04/12/25 01:10 Hemoglobin A1c 7.8 % (4.0-6.0) H 04/12/25 01:10 Calculated Osmolality 275 mOsm/kg (285-295) L 04/15/25 02:20 Lactic Acid 1.7 mmol/L (0.5-2.2) 04/13/25 13:34 Calcium 8.9 mg/dL (8.5-10.5) 04/15/25 02:20 Phosphorus 3.2 mg/dL (2.5-4.5) 04/12/25 01:10 Magnesium 1.9 mg/dL (1.7-2.3) 04/12/25 01:10 Total Bilirubin 0.8 mg/dL (0.15-1.2) 04/15/25 02:20 AST 23 U/L (0-40) 04/15/25 02:20 ALT 15 U/L (0-41) 04/15/25 02:20 Alkaline Phosphatase 41 U/L (40-130) 04/15/25 02:20 Troponin T Baseline 24 ng/L (0-15) H 04/11/25 18:45 Troponin T 120 Minute 24.24 ng/L (0-15) H 04/11/25 20:33 Delta Troponin T 0.24 ABS# (0-10) 04/11/25 20:33 Troponin T Hi Sens 6Hr 34.86 ng/L (0-15) H 04/12/25 01:10 Troponin T Hi Sens 6Hr Delta 10.86 ng/L (0-12) 04/12/25 01:10 NT-Pro-B Natriuret Pep 300 pg/mL (0-450) 04/11/25 18:45 Total Protein 5.8 g/dL (6.6-8.7) L 04/15/25 02:20 Albumin 3.9 g/dL (3.5-5.2) 04/15/25 02:20 Globulin 1.9 g/dL (1.3-4.6) 04/15/25 02:20 Vitals Last Vital Signs Temp 97.8 F 04/15/25 15:28 Pulse 85 04/15/25 15:28 Resp 16 04/15/25 15:28 BP 98/53 04/15/25 12:00 Pulse Ox 92 04/15/25 15:28 O2 Del Method Nasal Cannula 04/15/25 04:00 Discharge Plan Discharge Patient Disposition: Home Condition: Stable Prescriptions: New amoxicillin-pot clavulanate 875-125 mg tablet 1 tab PO BID 5 Days Qty: 10 0RF Instant Food Thickener Powder 1 ea PO .with liquids 30 Days Qty: 1020 0RF Rx Instructions: Please use with all thin liquids Continued atorvastatin 40 mg tablet 40 mg PO BEDTIME clopidogrel 75 mg tablet 75 mg PO DAILY albuterol sulfate 90 mcg/actuation HFA aerosol inhaler 1 - 2 puff INHALATION Q6H PRN (Reason: SOB) isosorbide mononitrate 30 mg tablet extended release 24 hr 30 mg PO DAILY hydrocodone-acetaminophen 10-325 mg tablet See Rx Instructions .ROUTE .COMPLEX PRN (Reason: Pain, Moderate) Rx Instructions: TAKE 1/2 TO 1 TABLET BY MOUTH EVERY 6 HOURSAS NEEDED FOR MODERATE TO SEVERE PAIN MAX DAILY AMOUNT 4 TABLEETS glimepiride 2 mg tablet 2 mg PO DAILY Rx Instructions: with a meal levothyroxine [Synthroid] 75 mcg tablet 75 mcg PO QAM doxazosin 8 mg tablet 8 mg PO DAILY pantoprazole 40 mg tablet,delayed release (DR/EC) 40 mg PO DAILY losartan 25 mg tablet 25 mg PO DAILY nitroglycerin 0.4 mg tablet, sublingual 0.4 mg sublingual Q5MIN escitalopram oxalate 10 mg tablet 10 mg PO DAILY Januvia 50 mg tablet 50 mg PO DAILY Rx Instructions: take with a meal insulin glargine [Lantus Solostar U-100 Insulin] 100 unit/mL (3 mL) insulin pen 10 unit SUBCUT DAILY Rx Instructions: take with breakfast promethazine-DM 6.25-15 mg/5 mL Syrup 5 ml PO Q6H escitalopram oxalate [Lexapro] 10 mg Tablet 10 mg PO DAILY sodium chloride 1,000 mg Tablet,Soluble 1,000 mg PO DAILY cholecalciferol (vitamin D3) 25 mcg (1,000 unit) Tablet 1,000 unit PO DAILY aspirin 81 mg Capsule 81 mg PO DAILY iron-vitamin B complex 1 tab tablet 1 tab PO DAILY Discharge Order = DC NOW: Discharge Order (Routine); Ordered 04/15/25 Ordered By: Herbert Patel Referrals: Walter Nicolas MD [Physician, General Surgery] - 05/01/25 8:20 am Referral Note: egd Julian Flores MD [Physician, Cardiology] - 05/06/25 3:00 pm Tomás Juárez DO [Primary Care Provider] - 04/18/25 11:20 am Discharge Diet: As Directed Discharge Activity: Resume usual activity Patient Instructions: Chest Pain - Chest Wall, Coronary Artery Disease (DC), Aspiration Pneumonia (DC), Chest Pain Stoplight, Opioid Safety, Post Angiogram Home Care Instructions, Patient Portal & Laura Instructions Activity Restrictions/Additional Instructions: - Adhere to dysphagia level 6 diet soft and bite-size, mild thickener, alternate solids with liquids to help clear residue - Follow-up with general surgery for consideration of EGD Discharge Attestations Time Spent in Discharge Care*: greater than 30 min Quality Metrics Clinical Quality Measures [ No reported AMI, CVA or VTE this stay] Coding Level of Care Code 38637 Total time (in minutes) for Discharge: 45 Diagnoses Aspiration into airway T17.908A Chest pain R07.9 Coronary artery disease I25.10
== END 2025-04-15 15:30 | disposition home or self-care (01) | DRG 287 ==
LOC: ER 20:44 → CSU 21:09
PROVIDERS: Internal Medicine Cardiovascular Disease; Admitting Provider Internal Medicine; Emergency Provider Emergency Medicine; PCP Family Medicine; Visit Provider Family Medicine
PROC: 4A023N7 Measurement of Cardiac Sampling and Pressure, Left Heart, Percutaneous Approach (ICD-10-PCS; principal; 2025-04-13 09:00)
DX: I25.10 Atherosclerotic heart disease of native coronary artery without angina pectoris (principal); I97.630 Postprocedural hematoma of a circulatory system organ or structure following a cardiac catheterization; E11.9 Type 2 diabetes mellitus without complications; I45.10 Unspecified right bundle-branch block; I95.9 Hypotension, unspecified; R06.2 Wheezing; R05.9 Cough, unspecified; N40.0 Benign prostatic hyperplasia without lower urinary tract symptoms; Z88.8 Allergy status to other drugs, medicaments and biological substances; Z95.5 Presence of coronary angioplasty implant and graft; Z79.02 Long term (current) use of antithrombotics/antiplatelets; Z79.899 Other long term (current) drug therapy; Z79.890 Hormone replacement therapy; Y84.0 Cardiac catheterization as the cause of abnormal reaction of the patient, or of later complication, without mention of misadventure at the time of the procedure
CPT/HCPCS: 36415; 36416; 71045; 71250; 74230; 78452; 80053; 82962; 83036; 83605; 83735; 83880; 84100; 84484; 85025; 92523; 92610; 92611; 93005; 93017; 93306; 93454; 96372; 96375; 99152; 99153; 99285; A9500; C1769; C1887; C1894; G0378; J0696; J1644; J1815; J2250; J2270; J2785; J3010; J3490; J7030; J9999; Q0163; Q9967

== ENCOUNTER → 2025-04-29 13:21 | Outpatient (BNVA) | payer MEDICARE, OTHER, SELFPAY | PROVIDERS: PCP Family Medicine; Visit Provider Surgery | DX: R13.10 Dysphagia, unspecified (principal) | CPT/HCPCS: 99203 ==

== ENCOUNTER → 2025-05-06 14:54 | Outpatient (BNVA) | payer MEDICARE, OTHER, SELFPAY | PROVIDERS: PCP Family Medicine; Visit Provider Internal Medicine Cardiovascular Disease | DX: I25.10 Atherosclerotic heart disease of native coronary artery without angina pectoris (principal); I95.9 Hypotension, unspecified; I34.0 Nonrheumatic mitral (valve) insufficiency; Z98.890 Other specified postprocedural states; Z87.891 Personal history of nicotine dependence | CPT/HCPCS: 99214 ==